=== PATIENT | male | born 1955 | race Caucasian/White ===

== ENCOUNTER → 2017-04-24 | Outpatient (CLI) | payer OTHER ==
[2017-04-24 11:24] LABS: CH 31.4; CHCM 34.3; HCT 50.3 % (39.0-53.0); HDW 2.88; HGB 16.4 gm/dL (13.0-17.5); MCHC 32.7 g/dL (31.0-37.0); MCV 91.9 fL (80.0-100.0); Mean Platelet Volume 10.5; RBC 5.48 m/uL (4.30-5.90); RDW 14.5 % (11.5-15.5); WBC 10.1 k/uL (3.8-10.6)
[2017-04-24 12:29] LABS: ALT 50 U/L (21-72); AST 40 U/L (17-59); Alkaline Phosphatase 107 U/L (38-126); Anion Gap 18 mmol/L; Blood Urea Nitrogen 16 mg/dL (9-20); Calcium 9.8 mg/dL (8.4-10.2); Carbon Dioxide 18 mmol/L (22-30); Chloride 107 mmol/L (98-107); Glucose 154 mg/dL (74-99); Non-African American GFR(MDRD) >60 (>60 ml/min/1.73 sqM); Potassium 4.2 mmol/L (3.5-5.1); Sodium 143 mmol/L (137-145); Total Bilirubin 0.4 mg/dL (0.2-1.3); Total Protein 7.7 g/dL (6.3-8.2)
[2017-04-24 12:56] LABS: Prostate Specific Antigen 0.83 ng/mL (0.00-4.00)
== END | disposition home or self-care (01) ==
LOC: LABWHC1 11:04
PROVIDERS: ATTEND Physician Assistant
DX: N40.0 Benign prostatic hyperplasia without lower urinary tract symptoms (principal); E78.2 Mixed hyperlipidemia; I10 Essential (primary) hypertension
CPT/HCPCS: 36415; 80053; 84153; 85027

== ENCOUNTER → 2024-01-01 | Outpatient (CLI) | payer MEDICARE, OTHER ==
[2024-01-01 13:08] VITALS: BP 129/61; PULSE 87; RESP 18
--- NOTE | 2024-01-01 13:30 | P.PAINCN ---
History of Present Illness - Reason for Consult Consult date: 01/01/24 lumbar back pain - Chief Complaint lumbar back pain - History of Present Illness Mr. Prince is a 68 year old pleasant male patient came to [facility] pain management clinic for initial evaluation for lumbar back pain. Patient described pain started many years ago has ongoing lumbar back problem. He was recently hospitalized secondary to rhabdomyolysis, all to that he was kept on home oxygen 5 L/m nasal cannula. Patient described pain as aching, sharp, throbbing, spasm type of pain. Patient rated pain 9out of 10 in severity. Which may very her pain level from 5-10 out of 10 in severity. Pain increases with activities, and standing, walking, sitting, bending forward, and lifting. Pain decreases with resting and medication Overall patient activities decreased secondary to pain. Pain medications helping to some extent. Because of the pain patient is feeling lack of sleep and interest and energy. Denied any bowel or bladder problems. Patient denies any adverse effects to medications.he is using walker as a walking aids for walking. Complaining depression secondary to pain but denied any suicidal/homicidal tendency at this time. There are no signs of narcotic diversion/misuse/overuse and no new-onset weakness, bowel/bladder incontinence, saddle anesthesia, or no red flag symptoms. his lumbar epidural, and lumbar trigger point injection procedure was canceled on the day of procedure due to his positioning issues, and pain. Conservative treatment tried: [id number] medications [id number] lidocaine patch Ice, and heat Physical therapy exercises-done long time ago TENS unit's- never tried Chiropractic therapy- number tried Review of Systems 12 point review of symptoms negative except as mentioned in the history of present illness. Past Medical History Past Medical History: COPD, Diabetes Mellitus, Hyperlipidemia, Hypertension History of Any Multi-Drug Resistant Organisms: None Reported Past Surgical History: No Surgical Hx Reported Past Psychological History: No Psychological Hx Reported Smoking Status: Former smoker Past Alcohol Use History: Occasional Past Drug Use History: None Reported Medications and Allergies Home Medications Medication Instructions Recorded Confirmed Type Lidocaine 5% Patch [Lidoderm 5% 1 patch TOPICAL DAILY PRN #30 patch 12/08/23 01/01/24 Rx Patch] Glimepiride 2 mg PO BID 12/09/23 01/01/24 History Rosuvastatin Calcium 40 mg PO DAILY 12/09/23 01/01/24 History Albuterol Inhaler [Ventolin Hfa 2 puff INHALATION Q6H PRN #1 each 12/17/23 01/01/24 Rx Inhaler] Budesonide-Formot 160-4.5 Mcg 2 puff INHALATION BID #10.2 gm 12/17/23 01/01/24 Rx [Symbicort 160-4.5 Mcg Inhaler] Furosemide [Lasix] 40 mg PO DAILY #30 tablet 12/17/23 01/01/24 Rx Ibuprofen [Motrin] 400 mg PO Q6HR PRN tab 12/17/23 01/01/24 Rx Ipratropium-Albuterol Nebulize 3 ml INHALATION RT-QID #100 each 12/17/23 01/01/24 Rx [Duoneb 0.5 mg-3 mg/3 ml Soln] Ipratropium-Albuterol Nebulize 3 ml INHALATION RT-QID PRN each 12/17/23 01/01/24 Rx [Duoneb 0.5 mg-3 mg/3 ml Soln] metFORMIN HCL 1,000 mg PO BID #60 tablet 12/17/23 01/01/24 Rx predniSONE 10 mg PO DIRECTED #30 tab 12/17/23 01/01/24 Rx Allergies Allergy/AdvReac Type Severity Reaction Status Date / Time No Known Allergies Allergy Verified 01/01/24 12:59 Physical Exam General: Well-developed, well-nourished, no acute distress HEENT: Normocephalic, and atraumatic Neck: Supple, no neck swelling Psychiatric: Appropriate mood, and affect [employer]ACH[employer] P[employer]ER: No focal neurological deficits Musculoskeletal: Upper extremity: Normal strength, and range of motion. Sensation grossly intact Lower extremity: Normal strength, and decreased range of motion secondary to pain Lumbar spine: Paravertebral tenderness: positive, multiple lumbar trigger point positive Lumbar facet load test : positive Sacroiliac joint tenderness: Positive strait leg raising test patient refused Results Comments: CT of the lumbar spine done on 12/08/2023 showed L3-L4 broad-based disc protrusion, facet arthropathy with effacement of the thecal sac. L4-L5 broad-based disc protrusion, moderate facet arthropathy with ligamentum flavum hypertrophy with effacement of anterior, and posterior lateral thecal sac. L5-S1 degenerative disc disease with vacuum disc phenomenon with facet arthropathy, and a left paracentral disc protrusion encroaching the left S1 nerve root. No compression fracture deformity. No spondylolisthesis. Multilevel osteophytic spurring. Assessment and Plan Assessment: #1 Diagnoses, prognosis, and multiple treatment options including but not limited to physical therapy, interventional therapy, adjunct medication therapy, narcotic medication, and surgical options were discussed with the patient. And all questions were answered to the patient's satisfaction. #2 treatment plan agreement : Patient was thoroughly discussed regarding the treatment options, alternatives, and importance of exercises as tolerated. Patient clearly understood. #3 Patient was counseled on importance of regular exercise. Including presley chi, aerobic exercises as tolerated. Which helps for chronic pain, and overall well- being. #4 investigations: MAPS- reviewed , urine drug test- not done #5 diagnostic tests:none #6 consultation :physical therapy- # 7 interventional procedures: lumbar L4-L5 epidural steroid injection, and lumbar bilateral trigger point injections. Procedure, complications, alternatives discussed with the patient.but patient refused at this time. #8 medications none from the pain clinic #9 morphine milligrams equivalents dose ( MME) per day:0 from the pain clinic # 10 TENS unit's, and percussion massage device #11 disposition: scheduled to follow up with pain clinic in 8 weeks duration or as needed. Plan: #1 Diagnoses, prognosis, and multiple treatment options including but not limited to physical therapy, interventional therapy, adjunct medication therapy, narcotic medication, and surgical options were discussed with the patient. And all questions were answered to the patient's satisfaction. #2 treatment plan agreement : Patient was thoroughly discussed regarding the treatment options, alternatives, and importance of exercises as tolerated. Patient clearly understood. #3 Patient was counseled on importance of regular exercise. Including presley chi, aerobic exercises as tolerated. Which helps for chronic pain, and overall well- being. #4 investigations: MAPS- reviewed , urine drug test- not done #5 diagnostic tests: not done #6 consultation : physical therapy # 7 interventional procedures: a lumbar L4-L5 epidural steroid injection, and lumbar bilateral trigger point injections. Procedure, complications, alternatives discussed with the patient. #8 medications none from the pain clinic #9 morphine milligrams equivalents dose ( MME) per day:0 # 10 TENS unit's, and percussion massage device #11 disposition: scheduled to follow up with pain clinic in 8-12 weeks duration. Time with Patient: Less than 30 PQRS Measure Charge Sheet Measure #130: Documentation of Current Meds in Medical Chart: Patient's medications documented in chart Measure #226: Tobacco Use: Screen & Cessation Intervention: Pt not a tobacco user Measure #111: Pneumonia Vaccination: Pneumococcal vaccine administered or previously received Measure #47: Advance Care Plan: Advance care planning discussed & documented, plan or surrogate given Measure #412: Opioid Treatment Agreement: No documentation of signed opioid treatment agreement Measure #408: Opioid Therapy Follow-up Evaluation: Patient had NO f/u eval minimum every 3 months during opioid therapy Measure #317: Preventitive Care & Scrn High Bld Press & F/U: Pre-hypertensive or hypertensive BP documented, pt will f/u with PCP Measure #128: Body Mass Index (BMI) Screening & Follow-up: BMI documented within normal parameters Measure #131: Pain Assessment & Follow-up: Pain positive & plan documented Measure #431: Unhealthy Alcohol Use Preventative Care & Scrn: Patient not identified as an unhealthy alcohol user - Pain Location Bilateral Lower Back Non-Pharmacological Interventions: Chiropractic Treatment, Physical Therapy Pharmacological Interventions: PRN Medication, Topical Medication Home Medications: Ambulatory Orders Lidocaine 5% Patch [Lidoderm 5% Patch] 1 patch TOPICAL DAILY PRN #30 patch 12/08/23 Glimepiride 2 mg PO BID 12/09/23 Rosuvastatin Calcium 40 mg PO DAILY 12/09/23 Albuterol Inhaler [Ventolin Hfa Inhaler] 2 puff INHALATION Q6H PRN #1 each 12/17/23 Budesonide-Formot 160-4.5 Mcg [Symbicort 160-4.5 Mcg Inhaler] 2 puff INHALATION BID #10.2 gm 12/17/23 Furosemide [Lasix] 40 mg PO DAILY #30 tablet 12/17/23 Ibuprofen [Motrin] 400 mg PO Q6HR PRN tab 12/17/23 Ipratropium-Albuterol Nebulize [Duoneb 0.5 mg-3 mg/3 ml Soln] 3 ml INHALATION RT-QID #100 each 12/17/23 Ipratropium-Albuterol Nebulize [Duoneb 0.5 mg-3 mg/3 ml Soln] 3 ml INHALATION RT-QID PRN each 12/17/23 metFORMIN HCL 1,000 mg PO BID #60 tablet 12/17/23 predniSONE 10 mg PO DIRECTED #30 tab 12/17/23
== END ==
LOC: PNWHC3 12:27
DX: M54.50 Low back pain, unspecified (principal); G89.29 Other chronic pain; F32.A Depression, unspecified; Z71.82 Exercise counseling; Z87.891 Personal history of nicotine dependence; Z79.899 Other long term (current) drug therapy
CPT/HCPCS: 99211

== ENCOUNTER 2024-01-16 13:50 | Inpatient (IN) | payer MEDICARE, OTHER ==
[2024-01-16] MEDS ORDERED: VANCOMYCIN IV PER PHARMACY 1 EACH MISC MISCELLANE PRN (14:44)
[2024-01-16] MEDS: SODIUM CHLORIDE 0.9% 1,000 ML IV STA (15:05)
[2024-01-16] MEDS: KETOROLAC 15 MG/ML 1 ML VIAL IVP STA (15:06)
[2024-01-16 15:13] LABS: Anisocytosis Slight; Basophils % (A) 1 %; Eosinophils # (A) 0.1 k/uL (0-0.7); Eosinophils % (A) 1 %; HCT 47.3 % (39.0-53.0); Hypochromasia Slight; Lymphocytes % (A) 24 %; MCH 28.5 pg (25.0-35.0); MCHC 31.8 g/dL (31.0-37.0); MCV 89.7 fL (80.0-100.0); Monocytes # (A) 0.6 k/uL (0-1.0); Monocytes % (A) 7 %; Neutrophils # (A) 5.4 k/uL (1.3-7.7); Neutrophils % (A) 66 %; Platelet Count 150 k/uL (150-450); Poikilocytosis Slight; RBC 5.28 m/uL (4.30-5.90); RDW 16.7 % (11.5-15.5); WBC 8.2 k/uL (3.8-10.6)
[2024-01-16 15:22] LABS: ALT 18 U/L (4-49); AST 27 U/L (17-59); African American GFR (CKD) >90 (>60 ml/min/1.73 sqM); Albumin 3.8 g/dL (3.5-5.0); Alkaline Phosphatase 99 U/L (38-126); Amylase 50 U/L (30-110); Anion Gap 7 mmol/L; Blood Urea Nitrogen 11 mg/dL (9-20); Calcium 8.9 mg/dL (8.4-10.2); Carbon Dioxide 32 mmol/L (22-30); Chloride 104 mmol/L (98-107); Glucose 129 mg/dL (74-99); Lipase 69 U/L (23-300); Non-African American GFR(CKD) 88 (>60 ml/min/1.73 sqM); Sodium 143 mmol/L (137-145); Total Protein 6.7 g/dL (6.3-8.2)
[2024-01-16 15:33] LABS: Partial Thromboplastin Time 24.7 sec (22.0-30.0); Prothrombin Time 10.8 sec (10.0-12.5)
--- NOTE | 2024-01-16 15:34 | XR ---
EXAMINATION TYPE: XR foot limited LT DATE OF EXAM: 01/16/2024 CLINICAL HISTORY: pain TECHNIQUE: Frontal, lateral images of the left foot are obtained. COMPARISON: None. FINDINGS: There is no acute fracture/dislocation evident. The joint spaces appear within normal lucas its. Dorsal soft tissue swelling. No radiographic evidence to suggest osteomyelitis at this time. Lar ge plantar calcaneal spur and calcification of the Achilles. IMPRESSION: There is no acute fracture or dislocation. ICD 10 NO FRACTURE, INITIAL EVALUATION
[2024-01-16] MEDS ORDERED: NALOXONE 0.4 MG/ML 1 ML VIAL IV PRN (15:57)
[2024-01-16] MEDS ORDERED: ACETAMINOPHEN TAB 325 MG TAB PO PRN (15:57)
--- NOTE | 2024-01-16 16:00 | ED ---
General Adult HPI - General Chief complaint: Wound/Laceration Stated complaint: L foot pain Time Seen by Provider: 01/16/24 14:33 Source: patient, RN notes reviewed, old records reviewed Mode of arrival: wheelchair Limitations: no limitations - History of Present Illness Initial comments: Patient is a 68-year-old male who presents emergency department complaining of left foot wound as well as swelling and erythema. Was started on antibiotics few days ago, Keflex for cellulitis and possible wound infection. States the swelling and edema of gotten worse which is why presents for further evaluation. Denies fevers or chills. Is chronically on 3 to 5 L nasal cannula of oxygen however states he did not travel with it and was sitting in the waiting room for prolonged period of time without it. Was found to be 75% oxygen as well as a si ngle blood pressure that was low but others that were normal. Was placed in trauma bay 2 for further evaluation. Currently has no other acute complaints at this time other than pain left foot. Presents for evaluation. Does have a stage I decubitus ulcer. Denies chest pain, cough, fevers, chills, nausea, vomiting, diarrhea. Presents for further evaluation at this time. Believes he is having failed outpatient management of cellulitis. - Related Data Home Medications Medication Instructions Recorded Confirmed Glimepiride 2 mg PO BID 12/09/23 01/16/24 Rosuvastatin Calcium 40 mg PO DAILY 12/09/23 01/16/24 Albuterol Inhaler [Ventolin Hfa 2 puff INHALATION RT-Q6H PRN 01/16/24 01/16/24 Inhaler] Budesonide-Formot 160-4.5 Mcg 2 puff INHALATION RT-BID 01/16/24 01/16/24 [Symbicort 160-4.5 Mcg Inhaler] Cephalexin [Keflex] 500 mg PO QID 01/16/24 01/16/24 Ibuprofen [Motrin] 800 mg PO Q12H PRN 01/16/24 01/16/24 Multivitamins, Thera [Multivitamin 1 tab PO DAILY 01/16/24 01/16/24 (formulary)] Previous Rx's Medication Instructions Recorded Lidocaine 5% Patch [Lidoderm 5% 1 patch TOPICAL DAILY PRN #30 patch 12/08/23 Patch] Furosemide [Lasix] 40 mg PO DAILY #30 tablet 12/17/23 Ipratropium-Albuterol Nebulize 3 ml INHALATION RT-QID #100 each 12/17/23 [Duoneb 0.5 mg-3 mg/3 ml Soln] Allergies Allergy/AdvReac Type Severity Reaction Status Date / Time No Known Allergies Allergy Verified 01/16/24 16:19 Review of Systems ROS Statement: Those systems with pertinent positive or pertinent negative responses have been documented in the HPI. Review of Systems: CONST: Denies fever EYES: Denies blurry vision ENT: Denies nasal congestion C/V: Denies Chest pain RESP: Denies shortness of breath GI: Denies abdominal pain : Denies dysuria SKIN: Endorses left foot edema, erythema, wounds MSK: Denies joint pain. NEURO: Denies headache ROS Other: All systems not noted in ROS Statement are negative. Past Medical History Past Medical History: COPD, Diabetes Mellitus, Hyperlipidemia, Hypertension History of Any Multi-Drug Resistant Organisms: None Reported Past Surgical History: No Surgical Hx Reported Additional Past Surgical History / Comment(s): Orthopedic arm surgery Past Psychological History: No Psychological Hx Reported Smoking Status: Former smoker Past Alcohol Use History: Occasional Past Drug Use History: None Reported General Exam - General Exam Comments Initial Comments: General: Appears in no acute distress. HEAD: Normal with no signs of head trauma. EYES: PERRLA, EOMI, conjunctiva normal, no discharge. ENT: Hearing grossly intact, normal oropharynx. RESPIRATORY: Clear breath sounds bilaterally. No wheezes, rales, or rhonchi. Saturating normally on 4 L nasal cannula oxygen. No significant increased work of breathing. C/V: Regular rate and rhythm. S1 and S2 auscultated, no edema, peripheral pulses 2+ and intact throughout ABD: Abd is soft, nontender, nondistended EXT: Normal range of motion, no obvious deformity SKIN: Stage I decubitus ulcer over the sacrum. Patient has 3 wounds over the left foot with no purulent discharge or drainage. No obvious fluctuance. Erythematous and as well as edema over the entire foot. Appears to be cellulitic. NEURO: Alert and oriented x 4. No focal deficits. Limitations: no limitations Course Vital Signs 01/16/24 01/16/24 01/16/24 14:01 14:44 16:13 Temperature 97.6 F Pulse Rate 78 77 77 Respiratory 24 20 18 Rate Blood Pressure 80/38 116/70 128/74 O2 Sat by Pulse 92 L 94 L 95 Oximetry 01/16/24 01/16/24 01/16/24 18:00 20:09 20:18 Temperature Pulse Rate 74 75 76 Respiratory 22 Rate Blood Pressure 115/65 O2 Sat by Pulse 93 L Oximetry Medical Decision Making - Medical Decision Making Was pt. sent in by a medical professional or institution ([facility]mers, COIN MACHINE [employer]SEMBLER, urgent care, hospital, or fdc...) When possible be specific @ -No Did you speak to anyone other than the patient for history (EMS, parent, family, police, friend...)? What history was obtained from this source @ -No Did you review nursing and triage notes (agree or disagree)? Why? @ -I reviewed and agree with nursing and triage notes Were old charts reviewed (outside hosp., previous admission, EMS record, old EKG, old radiological studies, urgent care reports/EKG's, fdc records)? Report findings @ -No old charts were reviewed Differential Diagnosis (chest pain, altered mental status, abdominal pain women, abdominal pain men, vaginal bleeding, weakness, fever, dyspnea, syncope, headache, dizziness, GI bleed, back pain, seizure, CVA, palpatations, mental health, musculoskeletal)? @ -Cellulitis, osteomyelitis, sepsis, this list is not all inclusive. EKG interpreted by me (3pts min.). @ -As above X-rays interpreted by me (1pt min.). @ -X-ray of the foot reveals no evidence of osteomyelitis CT interpreted by me (1pt min.). @ -None done U/S interpreted by me (1pt. min.). @ -None done What testing was considered but not performed or refused? (CT, X-rays, U/S, labs)? Why? @ -None What meds were considered but not given or refused? Why? @ -None Did you discuss the management of the patient with other professionals (professionals i.e. [facility] Summers, COIN MACHINE ASSEMBLER, lab, RT, psych nurse, social media marketing analyst, straddle bug, teacher, civil preparedness officer, community case manager)? Give summary @ -No Was smoking cessation discussed for >3mins.? @ -No Was critical care preformed (if so, how long)? @ -No Were there social determinants of health that impacted care today? How? (Homelessness, low income, unemployed, alcoholism, drug addiction, transportation, low edu. Level, literacy, decrease access to med. care, long-term, rehab)? @ -No Was there de-escalation of care discussed even if they declined (Discuss DNR or withdrawal of care, Hospice)? DNR status @ -No What co-morbidities impacted this encounter? (DM, HTN, Smoking, COPD, CAD, Cancer, CVA, ARF, Chemo, Hep., AIDS, mental health diagnosis, sleep apnea, morbid obesity)? @ -None Was patient admitted / discharged? Hospital course, mention meds given and route , prescriptions, significant lab abnormalities, going to OR and other pertinent info. @ -Patient presents with concern for failed outpatient management of left foot cellulitis. Patient was found to be hypoxic initially but is supposed to be on 3 to 5 L nasal cannula was on nothing sitting in the waiting room for prolonged period of time. He was immediately placed on oxygen and placed in trauma bay 1. Currently no respiratory distress. Vital signs are within acceptable limits. We will obtain infectious labs, and start the patient on IV vancomycin after obtaining blood and wound cultures. Patient was in agreement this plan. Patient given a small amount of IV fluids as well as Toradol for pain. X-ray unremarkable. EKG unremarkable. Labs remarkable for a lactic acidosis of 4.9 which I strongly suspect is likely secondary to patient waiting in the waiting room saturating the 70%'s as he was off of his normal oxygen for prolonged period time. I do not believe this is secondary to sepsis at this time, however patient was already started on IV fluids and antibiotics. Will continue to trend. I did the patient. Due to failed outpatient management of cellulitis as well as lactic acidosis we will admit to the hospital. Home meds restarted. Already on vancomycin. Patient in agreement this plan. Infectious disease consulted. I spoke with the admitting provider, Dr. Douglass who was in agreement with the plan and accepted the admission. Undiagnosed new problem with uncertain prognosis? @ -No Drug Therapy requiring intensive monitoring for toxicity (Heparin, Nitro, Insuli n, Cardizem)? @ -No Were any procedures done? @ -No Diagnosis/symptom? @ -Left foot cellulitis, chronic left foot wounds Acute, or Chronic, or Acute on Chronic? @ -Acute on chronic Uncomplicated (without systemic symptoms) or Complicated (systemic symptoms)? @ -Complicated Side effects of treatment? @ -No Exacerbation, Progression, or Severe Exacerbation? @ -No Poses a threat to life or bodily function? How? (Chest pain, [place], ND, pneumonia, PE, COPD, DKA, ARF, appy, cholecystitis, CVA, Diverticulitis, Homicidal, Suicidal, threat to staff... and all critical care pts) @ -Yes Diagnosis/symptom? @ -Lactic acidosis likely secondary to chronic hypoxic respiratory failure Acute, or Chronic, or Acute on Chronic? @ -Acute Uncomplicated (without systemic symptoms) or Complicated (systemic symptoms)? @ -Uncomplicated Side effects of treatment? @ -None Exacerbation, Progression, or Severe Exacerbation] @ -No Poses a threat to life or bodily function? @ -Yes, if patient is off of his oxygen which he was while he was in the waiting room. - Lab Data Result diagrams: 01/16/24 14:58 01/16/24 14:58 Lab Results 01/16/24 01/16/24 01/16/24 Range/Units 14:58 14:58 14:58 WBC 8.2 (3.8-10.6) k/uL RBC 5.28 (4.30-5.90) m/uL Hgb 15.0 (13.0-17.5) gm/dL Hct 47.3 (39.0-53.0) % MCV 89.7 (80.0-100.0) fL MCH 28.5 (25.0-35.0) pg MCHC 31.8 (31.0-37.0) g/dL RDW 16.7 H (11.5-15.5) % Plt Count 150 (150-450) k/uL MPV 10.0 Neutrophils % 66 % Lymphocytes % 24 % Monocytes % 7 % Eosinophils % 1 % Basophils % 1 % Neutrophils # 5.4 (1.3-7.7) k/uL Lymphocytes # 2.0 (1.0-4.8) k/uL Monocytes # 0.6 (0-1.0) k/uL Eosinophils # 0.1 (0-0.7) k/uL Basophils # 0.0 (0-0.2) k/uL Hypochromasia Slight Poikilocytosis Slight Anisocytosis Slight PT 10.8 (10.0-12.5) sec INR 1.0 (<1.2) APTT 24.7 (22.0-30.0) sec Sodium 143 (137-145) mmol/L Potassium 5.0 (3.5-5.1) mmol/L Chloride 104 (98-107) mmol/L Carbon Dioxide 32 H (22-30) mmol/L Anion Gap 7 mmol/L BUN 11 (9-20) mg/dL Creatinine 0.87 (0.66-1.25) mg/dL Est GFR (CKD-EPI)AfAm >90 (>60 ml/min/1.73 sqM) Est GFR (CKD-EPI)NonAf 88 (>60 ml/min/1.73 sqM) Glucose 129 H (74-99) mg/dL Lactic Ac Sepsis Rflx Plasma Lactic Acid Vitaliy (0.7-2.0) mmol/L Calcium 8.9 (8.4-10.2) mg/dL Total Bilirubin 1.0 (0.2-1.3) mg/dL AST 27 (17-59) U/L ALT 18 (4-49) U/L Alkaline Phosphatase 99 (38-126) U/L Total Protein 6.7 (6.3-8.2) g/dL Albumin 3.8 (3.5-5.0) g/dL Amylase 50 (30-110) U/L Lipase 69 (23-300) U/L 01/16/24 01/16/24 Range/Units 14:58 15:31 WBC (3.8-10.6) k/uL RBC (4.30-5.90) m/uL Hgb (13.0-17.5) gm/dL Hct (39.0-53.0) % MCV (80.0-100.0) fL MCH (25.0-35.0) pg MCHC (31.0-37.0) g/dL RDW (11.5-15.5) % Plt Count (150-450) k/uL MPV Neutrophils % % Lymphocytes % % Monocytes % % Eosinophils % % Basophils % % Neutrophils # (1.3-7.7) k/uL Lymphocytes # (1.0-4.8) k/uL Monocytes # (0-1.0) k/uL Eosinophils # (0-0.7) k/uL Basophils # (0-0.2) k/uL Hypochromasia Poikilocytosis Anisocytosis PT (10.0-12.5) sec INR (<1.2) APTT (22.0-30.0) sec Sodium (137-145) mmol/L Potassium (3.5-5.1) mmol/L Chloride (98-107) mmol/L Carbon Dioxide (22-30) mmol/L Anion Gap mmol/L BUN (9-20) mg/dL Creatinine (0.66-1.25) mg/dL Est GFR (CKD-EPI)AfAm (>60 ml/min/1.73 sqM) Est GFR (CKD-EPI)NonAf (>60 ml/min/1.73 sqM) Glucose (74-99) mg/dL Lactic Ac Sepsis Rflx Y Plasma Lactic Acid Vitaliy 4.9 H* (0.7-2.0) mmol/L Calcium (8.4-10.2) mg/dL Total Bilirubin (0.2-1.3) mg/dL AST (17-59) U/L ALT (4-49) U/L Alkaline Phosphatase (38-126) U/L Total Protein (6.3-8.2) g/dL Albumin (3.5-5.0) g/dL Amylase (30-110) U/L Lipase (23-300) U/L - EKG Data -: EKG Interpreted by Me EKG Comments: 12-lead Electrocardiogram Interpretation Note EKG was reviewed and interpreted by myself. 12-lead ECG performed at 1424 is interpreted by me as revealing normal sinus rhythm at a rate of 73 beats per minute. Jones is normal. [place] interval is 140 ms, QRS duration is 96 ms, QTc is 446 ms.. There were no ST or T wave abnormalities to suggest myocardial ischemia or injury. R wave progression across the precordium was satisfactory. By my interpretation this EKG is non-diagnostic for acute ischemia. Disposition Clinical Impression: Left foot infection, Lactic acidosis, Cellulitis Disposition: ADMITTED IP TO THIS HOSP Condition: Stable Time of Disposition: 15:55
[2024-01-16] MEDS: VANCOMYCIN 1,750 MG in SODIUM CHLORIDE 0.9% 500 ML 500 ML IVPB ONE (16:12)
[2024-01-16] MEDS: SODIUM CHLORIDE 0.9% 1,000 ML IV SCH (16:13)
[2024-01-16] MEDS: HEPARIN SODIUM,PORCINE 5,000 UNIT/ML 1 ML VIAL SQ SCH ×2 (18:35→19:13)
[2024-01-16] MEDS ORDERED: NON FORMULARY DRUG (Albuterol Inhaler 90 MCG Puff) INHALATION PRN (18:40)
[2024-01-16] MEDS ORDERED: LIDOCAINE 4% PATCH TOPICAL PRN (18:40)
[2024-01-16] MEDS ORDERED: IBUPROFEN 800 MG TAB PO PRN (18:40)
[2024-01-16 19:33] LABS: Appearance,Urine Clear (Clear); Bilirubin,Urine Negative (Negative); Blood,Urine Negative (Negative); Color,Urine Colorless; Glucose,Urine (UA) Negative (Negative); Ketones,Urine Negative (Negative); Leukocyte Esterase,Urine Negative (Negative); Nitrite,Urine Negative (Negative); PH, Urine 5.5 (5.0-8.0); Protein,Urine Negative (Negative); Specific Gravity,Urine 1.007 (1.001-1.035); Urobilinogen,Urine <2.0 mg/dL (<2.0)
[2024-01-16] MEDS: IPRATROPIUM-ALBUTEROL 3 ML NEB INHALATION SCH (20:08)
[2024-01-16] MEDS: SYMBICORT 160-4.5 MCG INHALER INHALATION SCH (20:09)
[2024-01-16] MEDS: GLIMEPIRIDE 2 MG TAB PO SCH (22:59)
[2024-01-16] MEDS: FAMOTIDINE 20 MG/2 ML VIAL IV SCH (22:59)
[2024-01-17] MEDS: VANCOMYCIN 1,500 MG in SODIUM CHLORIDE 0.9% 500 ML 500 ML IVPB SCH (06:04)
--- NOTE | 2024-01-17 07:14 | P.CONS ---
History of Present Illness - Reason for Consult Consult date: 01/16/24 Foot wound Requesting physician: Murray Bertrand - Chief Complaint Pain redness and wound to the left foot x days - History of Present Illness Patient is a 68-year-old male with a past medical history significant for COPD diabetes mellitus hypertension hyperlipidemia recent admission to the hospital about a month ago with multiple falls prolonged stay on the floor with rhabdomyolysis subsequently stabilized and discharged home patient now presenting back to the hospital concerning for left foot wound as well as swelling and erythema patient mention he noticed those wounds to the left foot however his discharge from the hospital apparently has been treated by his primary care physician with Keflex however the patient noticed to having increasing swelling redness and edema to the left foot area patient complaining of pain describing it to be sharp moderate intensity without any radiation patient denies high-grade fever or any chills patient on presentation to the hospital was afebrile and no fever have been recorded subsequently patient was not tachycardic or hypotensive mildly hypoxic currently on supplemental oxygen patient did have white count of 8.2 creatinine 0.87 lactic acid 4.9 liver enzymes normal patient did have x-ray of the foot no acute fracture or dislocation patient was started on vancomycin admitted to the hospital infectious disease was consulted for further management Review of Systems Positive point and negatives has been mentioned in the HPI, complete review of systems was performed and all other systems are negative Past Medical History Past Medical History: COPD, Diabetes Mellitus, Hyperlipidemia, Hypertension History of Any Multi-Drug Resistant Organisms: None Reported Past Surgical History: No Surgical Hx Reported Additional Past Surgical History / Comment(s): Orthopedic arm surgery Past Psychological History: No Psychological Hx Reported Smoking Status: Former smoker Past Alcohol Use History: Occasional Past Drug Use History: None Reported Medications and Allergies Home Medications Medication Instructions Recorded Confirmed Type Lidocaine 5% Patch [Lidoderm 5% 1 patch TOPICAL DAILY PRN #30 patch 12/08/23 Rx Patch] Glimepiride 2 mg PO BID 12/09/23 01/16/24 History Rosuvastatin Calcium 40 mg PO DAILY 12/09/23 01/16/24 History Furosemide [Lasix] 40 mg PO DAILY #30 tablet 12/17/23 01/16/24 Rx Ipratropium-Albuterol Nebulize 3 ml INHALATION RT-QID #100 each 12/17/23 01/16/24 Rx [Duoneb 0.5 mg-3 mg/3 ml Soln] Albuterol Inhaler [Ventolin Hfa 2 puff INHALATION RT-Q6H PRN 01/16/24 01/16/24 History Inhaler] Budesonide-Formot 160-4.5 Mcg 2 puff INHALATION RT-BID 01/16/24 01/16/24 History [Symbicort 160-4.5 Mcg Inhaler] Ibuprofen [Motrin] 800 mg PO Q12H PRN 01/16/24 01/16/24 History Multivitamins, Thera [Multivitamin 1 tab PO DAILY 01/16/24 01/16/24 History (formulary)] Acetaminophen Tab [Tylenol] 650 mg PO Q6HR PRN tab 01/20/24 Rx Ciprofloxacin HCl [Cipro] 500 mg PO BID 10 Days #20 tab 01/20/24 Rx Allergies Allergy/AdvReac Type Severity Reaction Status Date / Time No Known Allergies Allergy Verified 01/16/24 16:19 Physical Exam Vitals: Vital Signs Temp Pulse Resp BP Pulse Ox 01/16/24 16:13 77 18 128/74 95 01/16/24 14:44 77 20 116/70 94 L 01/16/24 14:01 97.6 F 78 24 80/38 92 L Intake and Output 01/16/24 01/16/24 01/16/24 06:59 14:59 22:59 Other: Weight 92.533 kg GENERAL DESCRIPTION: Elderly male lying in bed, no distress. No tachypnea or accessory muscle of respiration use. HEENT: Shows Pallor , no scleral icterus. Oral mucous membrane is dry. No pharyngeal erythema or thrush NECK: Trachea central, no thyromegaly. LUNGS: Unlabored breathing. Clear to auscultation anteriorly. No wheeze or crackle. HEART: S1, S2, regular rate and rhythm. No loud murmur ABDOMEN: Soft, no tenderness , guarding or rigidity, no organomegaly EXTREMITIES: Left foot lateral border did have a 3 wounds with necrotic bases minimal surrounding redness SKIN: No rash, no masses palpable. NEUROLOGICAL: The patient is awake, alert, oriented x3, mood and affect normal. Results CBC & Chem 7: 01/19/24 04:59 01/19/24 04:59 Labs: Abnormal Lab Results - Last 24 Hours (Table) 01/16/24 01/16/24 01/16/24 Range/Units 14:58 14:58 14:58 RDW 16.7 H (11.5-15.5) % Carbon Dioxide 32 H (22-30) mmol/L Glucose 129 H (74-99) mg/dL Plasma Lactic Acid Vitaliy 4.9 H* (0.7-2.0) mmol/L Assessment and Plan (1) Cellulitis of left foot Status: Acute Code(s): L03.116 - CELLULITIS OF LEFT LOWER LIMB SNOMED Code(s): 79141817445975347 Plan: 1patient presented to hospital with a left foot wound x 3 mostly on the lateral border and this patient was recently did have admission to the hospital after a fall and did have evidence of rhabdomyolysis now with the wounds questionably pressure related versus ischemic as the patient did have a cold feet with a component of cellulitis failing outpatient oral Keflex therapy 2-patient will benefit from arterial Doppler and if abnormal vascular surgery evaluation 3-vancomycin pharmacy to dose target trough of 15 while watching kidney function and Vanco trough closely for the complaint of cellulitis while watching his kidney function closely We will follow on clinical condition and cultures to further adjust medication if needed Thank you for this consultation we will follow the patient along with you Dictation was produced using [employer] dictation software. please excuse any grammatical, word or spelling errors. Time with Patient: Greater than 30
[2024-01-17] MEDS: FUROSEMIDE 40 MG TAB PO SCH (09:02)
[2024-01-17] MEDS: ATORVASTATIN 80 MG TAB PO SCH (09:02)
--- NOTE | 2024-01-17 09:34 | P.HPIM ---
History of Present Illness Patient is a pleasant 68 years old male with past medical history of diabetes mellitus hypertension, hyperlipidemia, COPD with chronic hypoxic respiratory failure, patient states he uses 3 to 5 L/min at baseline at home. His wood router hand is Dr. Carroll. at bedside. As per patient and family patient has been having this problem in his left foot for about 1 to 2 months which started like a blood blister and popped up later on after he saw his primary doctor. Patient with no significant improvement and the last few days got more worse so he decided come to emergency room. He was prescribed some antibiotics by his doctor as an outside care however with no improvement Patient denies any other symptoms no chest pain or dyspnea no change in urine or bowel habits. He denies smoking he states he quit 3 years ago, he drinks alcohol occasionally about twice per week No illicit drugs. Patient is afebrile, blood pressure on the low side when he came in 86/38 and currently improved to 116/70 Lactic acid elevated 4.9 came back down to 1.6 Foot x-ray showing no fracture, no evidence of osteomyelitis Urine analysis is negative for infection EKG shows sinus rhythm at [address]-T changes. Rest of labs reviewed and they are unremarkable Patient was started on normal saline 75 mL/h on IV vancomycin admitted with ID team consult Review of Systems Review of systems CONSTITUTIONAL: No fever, no malaise, no fatigue. HEENT: No recent visual problems or hearing problems. Denied any sore throat. CARDIOVASCULAR: No orthopnea, PND, no palpitations, no syncope. PULMONARY: No shortness of breath, no cough, no hemoptysis. GASTROINTESTINAL: No diarrhea, no nausea, no vomiting, no abdominal pain. Normoactive bowel sounds. NEUROLOGICAL: No headaches, no weakness, no numbness. HEMATOLOGICAL: Denies any bleeding or petechiae. GENITOURINARY: Denies any burning micturition, frequency, or urgency. MUSCULOSKELETAL/RHEUMATOLOGICAL: Denies any joint pain, swelling, or any muscle pain. ENDOCRINE: Denies any polyuria or polydipsia. Past Medical History Past Medical History: COPD, Diabetes Mellitus, Hyperlipidemia, Hypertension History of Any Multi-Drug Resistant Organisms: None Reported Past Surgical History: No Surgical Hx Reported Additional Past Surgical History / Comment(s): Orthopedic arm surgery Past Psychological History: No Psychological Hx Reported Smoking Status: Former smoker Past Alcohol Use History: Occasional Past Drug Use History: None Reported Medications and Allergies Home Medications Medication Instructions Recorded Confirmed Type Lidocaine 5% Patch [Lidoderm 5% 1 patch TOPICAL DAILY PRN #30 patch 12/08/23 01/16/24 Rx Patch] Glimepiride 2 mg PO BID 12/09/23 01/16/24 History Rosuvastatin Calcium 40 mg PO DAILY 12/09/23 01/16/24 History Furosemide [Lasix] 40 mg PO DAILY #30 tablet 12/17/23 01/16/24 Rx Ipratropium-Albuterol Nebulize 3 ml INHALATION RT-QID #100 each 12/17/23 01/16/24 Rx [Duoneb 0.5 mg-3 mg/3 ml Soln] Albuterol Inhaler [Ventolin Hfa 2 puff INHALATION RT-Q6H PRN 01/16/24 01/16/24 History Inhaler] Budesonide-Formot 160-4.5 Mcg 2 puff INHALATION RT-BID 01/16/24 01/16/24 History [Symbicort 160-4.5 Mcg Inhaler] Cephalexin [Keflex] 500 mg PO QID 01/16/24 01/16/24 History Ibuprofen [Motrin] 800 mg PO Q12H PRN 01/16/24 01/16/24 History Multivitamins, Thera [Multivitamin 1 tab PO DAILY 01/16/24 01/16/24 History (formulary)] Allergies Allergy/AdvReac Type Severity Reaction Status Date / Time No Known Allergies Allergy Verified 01/16/24 16:19 Physical Exam Vitals: Vital Signs Temp Pulse Resp BP Pulse Ox 01/16/24 14:44 77 20 116/70 94 L 01/16/24 14:01 97.6 F 78 24 80/38 92 L Intake and Output 01/16/24 01/16/24 01/16/24 06:59 14:59 22:59 Other: Weight 92.533 kg GENERAL: The patient is alert and oriented x3, not in any acute distress. Well developed, well nourished. HEENT: Pupils are round and equally reacting to light. EOMI. No scleral icterus. No conjunctival pallor. Normocephalic, atraumatic. No pharyngeal erythema. No thyromegaly. CARDIOVASCULAR: S1 and S2 present. No murmurs, rubs, or gallops. PULMONARY: Chest is clear to auscultation, no wheezing , no crackles. ABDOMEN: Soft, nontender, nondistended, normoactive bowel sounds. No palpable organomegaly. MUSCULOSKELETAL: No joint swelling or deformity. -EXTREMITIES: No cyanosis, clubbing, or pedal edema. Left foot mildly swollen, with circular areas of dry black discoloration on the lateral left forefoot anteriorly and in the middle and there is another spot on the lateral malleolus. No significant surrounding cellulitis NEUROLOGICAL: Gross neurological examination did not reveal any focal deficits. SKIN: No rashes. no petechiae. Results CBC & Chem 7: 01/16/24 14:58 01/16/24 14:58 Labs: Abnormal Lab Results - Last 24 Hours (Table) 01/16/24 01/16/24 01/16/24 Range/Units 14:58 14:58 14:58 RDW 16.7 H (11.5-15.5) % Carbon Dioxide 32 H (22-30) mmol/L Glucose 129 H (74-99) mg/dL Plasma Lactic Acid Vitaliy 4.9 H* (0.7-2.0) mmol/L Assessment and Plan Assessment: Left foot infection and cellulitis with possible deep-seated infection related to his diabetes, failed outpatient treatment Diabetes mellitus type 2 Hypertension Hyperlipidemia COPD without acute exacerbation Chronic hypoxic respiratory failure secondary to above continue with IV van comycin Plan: Continue with IV hydration ID team consult DVT prophylaxis subcutaneous heparin GI prophylaxis Pepcid Physical therapy evaluation Prognosis is guarded
[2024-01-17 09:44] LABS: Basophils # (A) 0.03 X 10*3/uL (0.00-0.10); Basophils % (A) 0.4 %; Eosinophils # (A) 0.03 X 10*3/uL (0.04-0.35); Eosinophils % (A) 0.4 %; HCT 42.9 % (39.6-50.0); HGB 13.3 g/dL (13.0-17.0); Lymphocytes # (A) 1.44 X 10*3/uL (0.90-5.00); Lymphocytes % (A) 18.3 %; MCH 27.9 pg (27.0-32.0); MCV 90.1 FL (80.0-97.0); Mean Platelet Volume 11.8 FL (9.5-12.2); Monocytes # (A) 0.48 X 10*3/uL (0.20-1.00); Monocytes % (A) 6.1 %; NRBC Per 100 WBC 0 X 10*3/uL (0.00-0.01); Neutrophils # (A) 5.87 X 10*3/uL (1.80-7.70); Neutrophils % (A) 74.5 %; Platelet Count 126 X 10*3/uL (140-440); RBC 4.76 X 10*6/uL (4.40-5.60); RDW 16.6 % (11.5-14.5); WBC 7.87 X 10*3/uL (4.50-10.00)
[2024-01-17 10:17] LABS: ALT 13 U/L (10-49); AST 20 U/L (14-35); Albumin 3.5 g/dL (3.8-4.9); Albumin/Globulin Ratio 1.59 Ratio (1.60-3.17); Alkaline Phosphatase 90 U/L (41-126); BUN/Creat Ratio 10.78 Ratio (12.00-20.00); Blood Urea Nitrogen 9.7 mg/dL (9.0-27.0); Calcium 8.5 mg/dL (8.7-10.3); Carbon Dioxide 27.2 mmol/L (21.6-31.8); Chloride 106 mmol/L (96-109); Globulin 2.2 g/dL (1.6-3.3); Glucose 94 mg/dL (70-110); Potassium 3.9 mmol/L (3.5-5.5); Sodium 144 mmol/L (135-145); Total Bilirubin 0.7 mg/dL (0.3-1.2); Total Protein 5.7 g/dL (6.2-8.2)
[2024-01-17 11:39] LABS: Glucose,Whole Blood 166 mg/dL (70-110)
--- NOTE | 2024-01-17 14:15 | US ---
EXAMINATION TYPE: US arterial LE multi level DATE OF EXAM: 01/17/2024 1:48 PM CLINICAL INDICATION: Male, 68 years old with history of Left lower extremity wound/cold feet; Lower e xtremity wound, cold feet. History of: Smoker: Previous Hypertension: Yes Diabetic: Yes Hyperlipidemia: Yes TIA/CVA: No Previous Vascular Surgery: No CAD: No WA: No Vascular Ulcers: Yes left Claudication: Both Doppler Waveforms: Right: Monophasic Left: Monophasic Right Brachial Pressure: Deferred due to IV Left Brachial Pressure: 124 Ankle-Brachial Indices: Right: 0.32 *Limitations due to movement Left: 0.71 *Limitations due to movement (Vessel hardening > 1.4; Normal 0.9 - 1.4, Moderate 0.7 - 0.9, Severe 0.5-0.7) Toe Brachial Indices: Right: Unable to obtain due to patient movement Left: 0.31 Exam is very limited due to patient movement with cuff deflation. ?Consider additional modality to ev aluate. *Bilateral dorsalis pedis artery- faint signals were heard, unable to produce waveforms. IMPRESSION: Severe right and moderate to severe left ankle-brachial indices.
[2024-01-17 14:27] VITALS: BMI 28.4
[2024-01-17 17:01] LABS: Glucose,Whole Blood 102 mg/dL (70-110)
[2024-01-17 19:27] LABS: Glucose,Whole Blood 142 mg/dL (70-110)
[2024-01-18 06:05] LABS: Glucose,Whole Blood 150 mg/dL (70-110)
[2024-01-18 10:58] LABS: African American GFR (CKD) >90 (>60 ml/min/1.73 sqM); Non-African American GFR(CKD) >90 (>60 ml/min/1.73 sqM)
[2024-01-18 11:48] LABS: Glucose,Whole Blood 109 mg/dL (70-110)
[2024-01-18 16:15] LABS: Glucose,Whole Blood 144 mg/dL (70-110)
--- NOTE | 2024-01-18 16:28 | P.PN ---
Subjective Progress Note Date: 01/17/24 Principal diagnosis: Reason for follow-up is left foot wound and cellulitis Patient is a 68-year-old male with a past medical history significant for COPD diabetes mellitus hypertension hyperlipidemia recent admission to the hospital about a month ago with multiple falls prolonged stay on the floor with rhabdomyolysis subsequently stabilized and discharged home patient now presenting back to the hospital concerning for left foot wound as well as swelling and erythema, patient be diagnosed with a cellulitis prompting this consultation. On today's evaluation that is 01/17/2024, patient has been afebrile, patient is breathing comfortably and is currently on 5 L nasal cannula oxygen, patient denies having any significant cough no chest pain shortness of breath, patient denies nausea vomiting or diarrhea and no abdominal pain, patient has any worsening pain to the left foot redness slightly decreased Patient white count is 7.87, creatinine 0.9 Objective - Vital Signs Vital signs: Vital Signs Temp 98.0 F 01/17/24 12:28 Pulse 78 01/17/24 16:03 Resp 18 01/17/24 12:28 BP 111/62 01/17/24 12:28 Pulse Ox 94 L 01/17/24 12:28 FiO2 Intake & Output 01/16/24 01/17/24 01/17/24 18:59 06:59 18:59 Output Total 300 2400 Balance -300 -2400 Weight 92.533 kg 92.533 kg 92.533 kg Output: Urine 300 2400 - Exam GENERAL DESCRIPTION: An elderly male lying in bed in no distress RESPIRATORY SYSTEM: Unlabored breathing , decreased breath sounds at bases HEART: S1 S2 regular rate and rhythm , ABDOMEN: Soft , no tenderness EXTREMITIES: Left foot lateral border did have some necrotic wound minimal redness - Labs CBC & Chem 7: 01/17/24 06:26 01/18/24 09:58 Labs: Abnormal Lab Results - Last 24 Hours (Table) 01/17/24 01/17/24 01/17/24 Range/Units 06:26 06:26 11:38 MCHC 31.0 L (32.0-37.0) g/dL RDW 16.6 H (11.5-14.5) % Plt Count 126 L (140-440) X 10*3/uL Eosinophils # 0.03 L (0.04-0.35) X 10*3/uL BUN/Creatinine Ratio 10.78 L (12.00-20.00) Ratio POC Glucose (mg/dL) 166 H (70-110) mg/dL Calcium 8.5 L (8.7-10.3) mg/dL Total Protein 5.7 L (6.2-8.2) g/dL Albumin 3.5 L (3.8-4.9) g/dL Albumin/Globulin Ratio 1.59 L (1.60-3.17) Ratio Assessment and Plan (1) Wound of left foot Current Visit: Yes Status: Acute Code(s): S91.302A - UNSPECIFIED OPEN WOUND, LEFT FOOT, INITIAL ENCOUNTER SNOMED Code(s): 54835533525307934 (2) Cellulitis of left foot Current Visit: Yes Status: Acute Code(s): L03.116 - CELLULITIS OF LEFT LOWER LIMB SNOMED Code(s): 89828895930257916 Plan: 1patient presented to hospital with a left foot wound x 3 mostly on the lateral border and this patient was recently did have admission to the hospital after a fall and did have evidence of rhabdomyolysis now with the wounds questionably pressure related versus ischemic as the patient did have a cold feet with a component of cellulitis failing outpatient oral Keflex therapy 2-currently waiting for arterial Doppler/ABIs 3-patient to continue with vancomycin pharmacy to dose target trough of 15 while watching kidney function and Vanco trough closely for the complaint of cellulitis while watching his kidney function closely Dictation was produced using [employer] dictation software. please excuse any gramma tical, word or spelling errors. Time with Patient: Less than 30
--- NOTE | 2024-01-18 16:29 | P.PN ---
Subjective Progress Note Date: 01/18/24 Principal diagnosis: Reason for follow-up is left foot wound and cellulitis Patient is a 68-year-old male with a past medical history significant for COPD diabetes mellitus hypertension hyperlipidemia recent admission to the hospital about a month ago with multiple falls prolonged stay on the floor with rhabdomyolysis subsequently stabilized and discharged home patient now presenting back to the hospital concerning for left foot wound as well as swelling and erythema, patient be diagnosed with a cellulitis prompting this consultation. On today's evaluation that is 01/18/2024,the patient denies any fever or any chills, patient is breathing comfortably on 5 L nasal current oxygen, the patient denies chest pain shortness of breath and no significant cough, patient denies abdominal pain, no nausea vomiting or diarrhea. Patient mention improvement in pain and redness to the left foot there is no drainage. Patient creatinine 0.67 Vanco trough is 12.9 blood culture pending left foot wound cultures pending, patient did have BORA with severe right and moderate to severe left ABIs Objective - Vital Signs Vital signs: Vital Signs Temp 99.2 F 01/18/24 13:08 Pulse 85 01/18/24 13:08 Resp 18 01/18/24 13:08 BP 95/52 01/18/24 13:08 Pulse Ox 91 L 01/18/24 13:08 FiO2 Intake & Output 01/17/24 01/18/24 01/18/24 18:59 06:59 18:59 Intake Total 1785 Output Total 2400 750 Balance -2400 1035 Weight 92.533 kg Intake: Intake, IV Titration 825 Amount Sodium Chloride 0.9% 1, 825 000 ml @ 75 mls/hr IV . [id number] [facility] Rx#:[id number] Oral 960 Output: Urine 2400 750 Other: Voiding Method Urinal # Voids 3 1 - Exam GENERAL DESCRIPTION: An elderly male lying in bed in no distress RESPIRATORY SYSTEM: Unlabored breathing , decreased breath sounds at bases HEART: S1 S2 regular rate and rhythm , ABDOMEN: Soft , no tenderness EXTREMITIES: Left foot lateral border did have some necrotic wound minimal redness - Labs CBC & Chem 7: 01/17/24 06:26 01/18/24 09:58 Labs: Abnormal Lab Results - Last 24 Hours (Table) 01/17/24 01/18/24 01/18/24 Range/Units 19:24 06:04 16:13 POC Glucose (mg/dL) 142 H 150 H 144 H (70-110) mg/dL Microbiology - Last 24 Hours (Table) 01/16/24 16:09 Gram Stain - Preliminary Foot - Left 01/16/24 14:50 Blood Culture - Preliminary Blood 01/16/24 14:35 Blood Culture - Preliminary Blood Assessment and Plan (1) Wound of left foot Current Visit: Yes Status: Acute Code(s): S91.302A - UNSPECIFIED OPEN WOUND, LEFT FOOT, INITIAL ENCOUNTER SNOMED Code(s): 88790330078754593 (2) Cellulitis of left foot Current Visit: Yes Status: Acute Code(s): L03.116 - CELLULITIS OF LEFT LOWER LIMB SNOMED Code(s): 76275786644448092 Plan: 1patient presented to hospital with a left foot wound x 3 mostly on the lateral border and this patient was recently did have admission to the hospital after a fall and did have evidence of rhabdomyolysis now with the wounds questionably pressure related versus ischemic as the patient did have a cold feet with a component of cellulitis failing outpatient oral Keflex therapy 2-patient did have significant abnormality on the ABIs we will consult vascular surgery for evaluation 3-patient to continue with vancomycin pharmacy to dose for cellulitis while waiting for the culture to finalize Dictation was produced using [employer] dictation software. please excuse any grammatical, word or spelling errors. Time with Patient: Less than 30
[2024-01-18] MEDS: VANCOMYCIN TROUGH DUE 1 EACH MISC MISCELLANE ONE (17:41)
[2024-01-18] MEDS: VANCOMYCIN 1,750 MG in SODIUM CHLORIDE 0.9% 500 ML 500 ML IVPB SCH (18:13)
[2024-01-18 19:16] LABS: Glucose,Whole Blood 193 mg/dL (70-110)
--- NOTE | 2024-01-19 05:04 | P.PN ---
Subjective Patient is a pleasant 68 years old male with past medical history of diabetes mellitus hypertension, hyperlipidemia, COPD with chronic hypoxic respiratory failure, patient states he uses 3 to 5 L/min at baseline at home. His wirer maintenance is Dr. Carroll. at bedside. As per patient and family patient has been having this problem in his left foot for about 1 to 2 months which started like a blood blister and popped up later on after he saw his primary doctor. Patient with no significant improvement and the last few days got more worse so he decided come to emergency room. He was prescribed some antibiotics by his doctor as an outside care however with no improvement Patient denies any other symptoms no chest pain or dyspnea no change in urine or bowel habits. He denies smoking he states he quit 3 years ago, he drinks alcohol occasionally about twice per week No illicit drugs. Patient is afebrile, blood pressure on the low side when he came in 86/38 and currently improved to 116/70 Lactic acid elevated 4.9 came back down to 1.6 Foot x-ray showing no fracture, no evidence of osteomyelitis Urine analysis is negative for infection EKG shows sinus rhythm at [address]-T changes. Rest of labs reviewed and they are unremarkable Patient was started on normal saline 75 mL/h on IV vancomycin admitted with ID team consult 01/19/2024 pt left foot cellulitis looks the same with dark spot on the lateral foot border , forefoot, midfoot and lateral mallulous with conservative Images discoloration. No warmth no significant pain or tenderness Vascular ultrasound showing severe disease on the right side and moderate to severe disease on the left side. Vascular surgery were consulted Patient was placed on IV vancomycin after he failed Keflex as an outpatient Objective - Vital Signs Vital signs: Vital Signs Temp 97.3 F L 01/18/24 08:00 Pulse 88 01/18/24 09:15 Resp 20 01/18/24 08:00 BP 125/55 01/18/24 08:00 Pulse Ox 86 L 01/18/24 02:00 FiO2 Intake & Output 01/17/24 01/18/24 01/18/24 18:59 06:59 18:59 Intake Total 1785 Output Total 2400 750 Balance -2400 1035 Weight 92.533 kg Intake: Intake, IV Titration 825 Amount Sodium Chloride 0.9% 1, 825 000 ml @ 75 mls/hr IV . [id number] [facility] Rx#:[id number] Oral 960 Output: Urine 2400 750 Other: Voiding Method Urinal # Voids 3 - Exam GENERAL: The patient is alert and oriented x3, not in any acute distress. Well developed, well nourished. HEENT: Pupils are round and equally reacting to light. EOMI. No scleral icterus. No conjunctival pallor. Normocephalic, atraumatic. No pharyngeal erythema. No thyromegaly. CARDIOVASCULAR: S1 and S2 present. No murmurs, rubs, or gallops. PULMONARY: Chest is clear to auscultation, no wheezing , no crackles. ABDOMEN: Soft, nontender, nondistended, normoactive bowel sounds. No palpable organomegaly. MUSCULOSKELETAL: No joint swelling or deformity. -EXTREMITIES: No cyanosis, clubbing, or pedal edema. Left foot mildly swollen, with circular areas of dry black discoloration on the lateral left forefoot ante riorly and in the middle and there is another spot on the lateral malleolus. No significant surrounding cellulitis NEUROLOGICAL: Gross neurological examination did not reveal any focal deficits. SKIN: No rashes. no petechiae. - Labs CBC & Chem 7: 01/17/24 06:26 01/18/24 09:58 Labs: Abnormal Lab Results - Last 24 Hours (Table) 01/17/24 01/18/24 Range/Units : 06:04 POC Glucose (mg/dL) 142 H 150 H (70-110) mg/dL Microbiology - Last 24 Hours (Table) 01/16/24 16:09 Gram Stain - Preliminary Foot - Left 01/16/24 14:50 Blood Culture - Preliminary Blood 01/16/24 14:35 Blood Culture - Preliminary Blood Assessment and Plan Assessment: Left foot infection and cellulitis with possible deep-seated infection related to his diabetes, failed outpatient treatment Moderate to severe peripheral vascular disease Diabetes mellitus type 2 Hypertension Hyperlipidemia COPD without acute exacerbation Chronic hypoxic respiratory failure secondary to above continue with IV vancomycin Plan: Continue with IV hydration ID team consult Vascular team consult Pain is minimal DVT prophylaxis subcutaneous heparin GI prophylaxis Pepcid Physical therapy evaluation Prognosis is guarded
[2024-01-19 06:01] LABS: Glucose,Whole Blood 97 mg/dL (70-110)
[2024-01-19 08:33] LABS: Basophils # (A) 0.04 X 10*3/uL (0.00-0.10); Basophils % (A) 0.5 %; Eosinophils # (A) 0.05 X 10*3/uL (0.04-0.35); Eosinophils % (A) 0.7 %; HGB 13.7 g/dL (13.0-17.0); Lymphocytes # (A) 1.64 X 10*3/uL (0.90-5.00); Lymphocytes % (A) 21.4 %; MCH 28.1 pg (27.0-32.0); MCHC 31.1 g/dL (32.0-37.0); MCV 90.2 FL (80.0-97.0); Mean Platelet Volume 12.6 FL (9.5-12.2); Monocytes # (A) 0.52 X 10*3/uL (0.20-1.00); Monocytes % (A) 6.8 %; NRBC Per 100 WBC 0 X 10*3/uL (0.00-0.01); Neutrophils # (A) 5.41 X 10*3/uL (1.80-7.70); Neutrophils % (A) 70.5 %; Platelet Count 133 X 10*3/uL (140-440); RBC 4.88 X 10*6/uL (4.40-5.60); RDW 16.1 % (11.5-14.5); WBC 7.67 X 10*3/uL (4.50-10.00)
[2024-01-19 08:48] LABS: BUN/Creat Ratio 17.14 Ratio (12.00-20.00); Chloride 107 mmol/L (96-109); Glucose 94 mg/dL (70-110); Potassium 3.7 mmol/L (3.5-5.5); Sodium 146 mmol/L (135-145)
--- NOTE | 2024-01-19 11:16 | CT ---
EXAMINATION TYPE: CT angio abd aorta w/Runoff DATE OF EXAM: 01/19/2024 COMPARISON: None INDICATION: claudication, nonpalpable Fem pulses DLP: 2637.4 mGycm, Automated exposure control for dose reduction was used. CONTRAST: 100 mL of Isovue 370. Study performed without Oral Contrast TECHNIQUE: Axial images were obtained from above the diaphragm to the pubic rami in the axial plane a t 5 mm thick sections. Reconstructed images are reviewed on the computer in the coronal plane. FINDINGS: Limited CT sections are obtained the lung bases. Pulmonary fibrosis is in the posterior right lung b ase. Mild consolidation is present dependent right lower lobe. Coronary artery calcifications noted. CT ABDOMEN: Liver: Normal Spleen: Normal Pancreas: Normal Adrenal glands: The adrenal glands are normal. Gallbladder: Normal Kidneys: No masses are evident. No hydronephrosis is present. No cysts are present. Vascular calci fication is present on the left. No obstructing renal stones are evident. Aorta: Vascular calcification is within the aorta. Inferior vena cava: Normal. CT PELVIS: Loops of bowel within the abdomen and pelvis are normal. This study is without oral contrast limi ting bowel evaluation. Appendix: Normal as visualized. Urinary bladder: Normal. Genitourinary structures: Prostate is prominent. Osseous structures: No suspicious lytic or sclerotic lesions. Aortic runoff: Following contrast imaging is reviewed in the arterial phase. Aorta: Aortic calcification is present. The superior mesenteric artery and celiac axis are patent. Mi ld stenosis at the origin of the superior mesenteric artery is not excluded. Renal arteries have vasc ular calcification. No dissection or aneurysm is evident. There is thrombus or filling defect along t he left posterior lateral aorta. The common iliac arteries are patent0 external iliac arteries are pa tent. There is some moderate narrowing of the left proximal external iliac artery. There is moderate to severe narrowing of the right external iliac artery near its origin. Runoff: There is mild to moderate narrowing of the distal common carotid arteries, left more so than right. Profunda femoris on the left may be occluded. Superficial femoral arteries appear occluded at their origins bilaterally. Collateral vascularization extends towards the level of the knee. There ma y be some reconstitution of the right popliteal artery. Left popliteal artery does not appear reconst ituted. Right trifurcation vessels patent anterior and posterior tibial arteries and peroneal artery. These s mall caliber. Anterior and posterior tibial arteries on the right are patent at the level of the ankl e. Some vascular calcifications within the proximal left trifurcation vessels. Posterior tibial arter y appears to be patent. Peroneal artery appears to be patent. These are small caliber. Vascular calci fication is small amount of contrast within the proximal to mid anterior tibial artery. This terminat es above the ankle. Peroneal artery and posterior tibial artery on the left. Repeat level of the ankl e. IMPRESSION: 1. Occlusion of the bilateral superficial femoral arteries. 2. Collateralization reconstitutes the right popliteal artery and the bilateral trifurcation vessels. These have small caliber but appear patent to the ankle on the right left peroneal and posterior tib ial arteries patent to the ankle on the left.
[2024-01-19 11:32] LABS: Glucose,Whole Blood 123 mg/dL (70-110)
--- NOTE | 2024-01-19 12:52 | P.GSCN ---
History of Present Illness Consult date: 01/19/24 Reason for Consult: Abnormal ABIs, severe PAD Requesting physician: Leda Zhang History of present illness: This is a pleasant 68-year-old male presented to the emergency department complaining of left foot wound and swelling. Apparently patient was seen on the outpatient basis and started on Keflex for cellulitis.. Patient has a history of COPD, diabetes mellitus, hyperlipidemia and hypertension. He is a former smoker. States that he had developed wounds to the left lateral aspect of his foot after a previous fall and hospitalization. States that they had turned into blood blisters and then had opened. He does report pain with ambulation and states that he is not able to walk very far due to pain in his legs and feet. Infectious disease was consulted for left foot wounds and cellulitis. ABIs were completed with right 0.32 and left 0.7. Vascular surgery was consulted for severe peripheral arterial disease. Review of Systems A 14 point review systems was completed all pertinent positives and negatives as stated in the HPI. Past Medical History Past Medical History: COPD, Diabetes Mellitus, Hyperlipidemia, Hypertension Additional Past Medical History / Comment(s): pt reports having spots on his haroldo gs, states its recent and he has an upcoming apt with the cancer clinic History of Any Multi-Drug Resistant Organisms: None Reported Past Surgical History: No Surgical Hx Reported Additional Past Surgical History / Comment(s): Orthopedic arm surgery Past Psychological History: No Psychological Hx Reported Smoking Status: Former smoker Past Alcohol Use History: Occasional Past Drug Use History: None Reported Medications and Allergies Home Medications Medication Instructions Recorded Confirmed Type Lidocaine 5% Patch [Lidoderm 5% 1 patch TOPICAL DAILY PRN #30 patch 12/08/23 01/16/24 Rx Patch] Glimepiride 2 mg PO BID 12/09/23 01/16/24 History Rosuvastatin Calcium 40 mg PO DAILY 12/09/23 01/16/24 History Furosemide [Lasix] 40 mg PO DAILY #30 tablet 12/17/23 01/16/24 Rx Ipratropium-Albuterol Nebulize 3 ml INHALATION RT-QID #100 each 12/17/23 01/16/24 Rx [Duoneb 0.5 mg-3 mg/3 ml Soln] Albuterol Inhaler [Ventolin Hfa 2 puff INHALATION RT-Q6H PRN 01/16/24 01/16/24 History Inhaler] Budesonide-Formot 160-4.5 Mcg 2 puff INHALATION RT-BID 01/16/24 01/16/24 History [Symbicort 160-4.5 Mcg Inhaler] Cephalexin [Keflex] 500 mg PO QID 01/16/24 01/16/24 History Ibuprofen [Motrin] 800 mg PO Q12H PRN 01/16/24 01/16/24 History Multivitamins, Thera [Multivitamin 1 tab PO DAILY 01/16/24 01/16/24 History (formulary)] Allergies Allergy/AdvReac Type Severity Reaction Status Date / Time No Known Allergies Allergy Verified 01/16/24 16:19 Surgical - Exam Vital Signs Temp Pulse Resp BP Pulse Ox 97.6 F 78 24 80/38 92 L 01/16/24 14:01 01/16/24 14:01 01/16/24 14:01 01/16/24 14:01 01/16/24 14:01 General appearance: The patient is alert, oriented, appears in no acute distress. HET: Head is normocephalic and atraumatic. Pupils are equal and reactive. Neck: Supple. Heart: Regular. Lungs: Equal expansion, normal respiratory effort. Abdomen: Soft, nontender, nondistended. Extremities: Bilateral lower extremities warm to the touch. Right foot without any wounds noted. Left foot with 3 wounds to the lateral aspect on the ankle m idfoot and near the fifth toe that are dry. Nonpalpable bilateral lower extremity pulses. Neurological: No focal deficits. Alert and oriented x 3. Results - Labs 01/19/24 04:59 01/19/24 04:59 Abnormal Lab Results - Last 24 Hours (Table) 01/18/24 01/18/24 Range/Units 16:13 19:13 POC Glucose (mg/dL) 144 H 193 H (70-110) mg/dL Microbiology - Last 24 Hours (Table) 01/16/24 14:50 Blood Culture - Preliminary Blood 01/16/24 14:35 Blood Culture - Preliminary Blood 01/16/24 16:09 Gram Stain - Preliminary Foot - Left Diabetes panel 01/18/24 Range/Units 09:58 Creatinine 0.67 (0.66-1.25) mg/dL Pituitary panel 01/18/24 Range/Units 09:58 Creatinine 0.67 (0.66-1.25) mg/dL Adrenal panel 01/18/24 Range/Units 09:58 Creatinine 0.67 (0.66-1.25) mg/dL - Imaging Comments: Lower extremity arterial duplex reports severe right and moderate to severe left ankle-brachial indices. Right 0.32, left 0.7 Assessment and Plan Assessment: 1. Nonhealing left lower extremity wounds 2. Peripheral arterial disease with chronic SFA occlusions, chronic aorto iliac disease 3. Caudication 4. Left lower extremity cellulitis 5. COPD 6. Diabetes mellitus 7. Hyperlipidemia and hypertension Plan: 1. Continue with antibiotic recommendations from infectious disease 2. CTA abdomin, pelvis and aorta with runoff ordered and reviewed. Patient with chronic lower extremity peripheral arterial disease 3. Patient will likely need left below the knee bypass and aortoiliac graft on the left. This is all chronic disease and can be done as an outpatient. Further workup and cardiology clearance will be needed. 4. Rest of medical management per primary medical team Thank you for this consultation, we will continue to follow. Patient will need to follow-up with vascular surgery on discharge. The impression and plan of care has been dictated as directed. I performed a history and examination of this patient, discussed the same with the dictator. I agree with the dictator's note ,documented as a scribe. Any additional findings or plans will be noted.
[2024-01-19] MEDS: DEXTROSE 5% IN WATER 1,000 ML IV SCH (14:00)
[2024-01-19 16:29] LABS: Glucose,Whole Blood 176 mg/dL (70-110)
[2024-01-19 20:55] LABS: Glucose,Whole Blood 202 mg/dL (70-110)
[2024-01-19 21:02] VITALS: RESP 18
[2024-01-20 06:11] LABS: Glucose,Whole Blood 106 mg/dL (70-110)
--- NOTE | 2024-01-20 06:14 | P.PN ---
Subjective Progress Note Date: 01/19/24 Patient is a pleasant 68 years old male with past medical history of diabetes mellitus hypertension, hyperlipidemia, COPD with chronic hypoxic respiratory failure, patient states he uses 3 to 5 L/min at baseline at home. His pit shoveler is Dr. Carroll. at bedside. As per patient and family patient has been having this problem in his left foot for about 1 to 2 months which started like a blood blister and popped up later on after he saw his primary doctor. Patient with no significant improvement and the last few days got more worse so he decided come to emergency room. He was prescribed some antibiotics by his doctor as an outside care however with no improvement Patient denies any other symptoms no chest pain or dyspnea no change in urine or bowel habits. He denies smoking he states he quit 3 years ago, he drinks alcohol occasionally about twice per week No illicit drugs. Patient is afebrile, blood pressure on the low side when he came in 86/38 and currently improved to 116/70 Lactic acid elevated 4.9 came back down to 1.6 Foot x-ray showing no fracture, no evidence of osteomyelitis Urine analysis is negative for infection EKG shows sinus rhythm at [address]-T changes. Rest of labs reviewed and they are unremarkable Patient was started on normal saline 75 mL/h on IV vancomycin admitted with ID team consult 01/18/2024 pt left foot cellulitis looks the same with dark spot on the lateral foot border , forefoot, midfoot and lateral mallulous with conservative Images discoloration. No warmth no significant pain or tenderness Vascular ultrasound showing severe disease on the right side and moderate to severe disease on the left side. Vascular surgery were consulted Patient was placed on IV vancomycin after he failed Keflex as an outpatient 01/19/2024 Patient is seen in follow-up today with infectious disease and vascular surgery following. Patient is maintained on antibiotics and awaiting cultures to finalize. Culture showing Enterobacter and awaiting finalized. Blood cultures thus far remain negative. Vascular surgery consulted as this appears all likely chronic and recommending outpatient follow-up. Arteriogram ordered and pending for further evaluation. Patient will also need cardiology and medical clearance in the outpatient setting prior to surgical intervention. Patient maintained on normal saline and having some shortness of breath will discontinue normal saline and transition to D5 and water and follow-up on repeat labs as sodium was 147 this morning. Will obtain a chest x-ray as well. Continue DuoNeb treatments. Will discuss further with case management regarding discharge planning. Review of systems: Constitutional: No reports of fatigue, fever, or chills Cardiovascular: No reports of chest pain or palpitations Respiratory: No reports of shortness of breath reports occasional cough GI: No reports of nausea, vomiting, or diarrhea : No reports of dysuria or retention Neurovascular: reports of generalized weakness and left foot pain All medications have been reviewed Physical exam: GENERAL: The patient is alert and oriented x3, Well developed, well nourished. Elderly appearing, somewhat restless HEENT: Pupils are round and equally reacting to light. EOMI. No scleral icterus. No conjunctival pallor. Normocephalic, atraumatic. No pharyngeal erythema. No thyromegaly. CARDIOVASCULAR: S1 and S2 muffled PULMONARY: Diminished breath sounds bilaterally otherwise chest is clear to auscultation, no wheezing , no crackles. ABDOMEN: Soft, nontender, nondistended, normoactive bowel sounds. No palpable organomegaly. MUSCULOSKELETAL: No joint swelling or deformity. EXTREMITIES: No cyanosis, clubbing, or pedal edema. Left foot mildly swollen, with circular areas of dry black discoloration on the lateral left forefoot anteriorly and in the middle and there is another spot on the lateral malleolus. No significant surrounding cellulitis NEUROLOGICAL: Gross neurological examination did not reveal any focal deficits. Diffusely weak SKIN: No rashes. no petechiae. Assessment: Left foot infection and cellulitis with possible deep-seated infection related to his diabetes, failed outpatient treatment Moderate to severe peripheral vascular disease Diabetes mellitus type 2, uncontrolled with hyperglycemia Mild hypernatremia Hypertension Hyperlipidemia COPD without acute exacerbation Chronic hypoxic respiratory failure secondary to above GI prophylaxis DVT prophylaxis Full code Plan: Continue with IV hydration although will transition to D5 and water as sodium is 147, decrease the rate Infectious disease following and patient is maintained on antibiotics. Will discuss further regarding discharge planning. Blood cultures thus far negative and wound culture showing Enterobacter and awaiting finalized cultures Vascular surgery evaluated the patient underwent arteriogram and reports will need outpatient follow-up along with medical and cardiology clearance for intervention in the outpatient setting Recommend PT/OT therapy evaluation. Will discuss with case management regarding discharge planning Due to multiple complex medical issues, prognosis is guarded Possible discharge in the next 24 to 48 hours The impression and plan of care has been dictated by Michelle Mayer, Nurse Practitioner as directed. Dr. Maria Isabel MD I have performed a history and examination and MDM of this patient, discussed the same with the dictator, and agree with the dictator's assessment and plan as written ,documented as a scribe. Based on total visit time, I have performed more than 50% of the visit. Objective - Vital Signs Vital signs: Vital Signs Temp 98.6 F 01/19/24 07:35 Pulse 88 01/19/24 07:35 Resp 18 01/19/24 07:35 BP 120/72 01/19/24 07:35 Pulse Ox 84 L 01/19/24 07:35 FiO2 Intake & Output 01/18/24 01/19/24 01/19/24 18:59 06:59 18:59 Output Total 900 Balance -900 Output: Urine 900 Other: Voiding Method Toilet Urinal # Voids 1 3 - Labs CBC & Chem 7: 01/19/24 04:59 01/19/24 04:59 Labs: Abnormal Lab Results - Last 24 Hours (Table) 01/18/24 01/18/24 01/19/24 Range/Units 16:13 19:13 04:59 MCHC 31.1 L (32.0-37.0) g/dL RDW 16.1 H (11.5-14.5) % Plt Count 133 L (140-440) X 10*3/uL MPV 12.6 H (9.5-12.2) FL Sodium (135-145) mmol/L POC Glucose (mg/dL) 144 H 193 H (70-110) mg/dL 01/19/24 Range/Units 04:59 MCHC (32.0-37.0) g/dL RDW (11.5-14.5) % Plt Count (140-440) X 10*3/uL MPV (9.5-12.2) FL Sodium 146 H (135-145) mmol/L POC Glucose (mg/dL) (70-110) mg/dL Microbiology - Last 24 Hours (Table) 01/16/24 16:09 Gram Stain - Preliminary Foot - Left Wound Culture - Preliminary Gram Neg Bacilli 01/16/24 14:50 Blood Culture - Preliminary Blood 01/16/24 14:35 Blood Culture - Preliminary Blood
--- NOTE | 2024-01-20 08:44 | P.PN ---
Subjective Progress Note Date: 01/20/24 Principal diagnosis: Left lower extremity wounds Patient is seen and examined today as a follow-up. Yesterday he underwent a CT angiogram abdomen pelvis and aorta with runoff. Patient has bilateral SFA occlusions with reconstitution at the right popliteal artery. Findings are discussed with patient. Discussed findings are chronic, patient will require left femoral to below the knee bypass. Patient currently denies any acute changes through the night. Denies any shortness of breath or chest pain. No fevers or chills. No change in lower extremity pain. Objective - Vital Signs Vital signs: Vital Signs Temp 98.8 F 01/20/24 02:00 Pulse 83 01/20/24 02:00 Resp 18 01/19/24 20:00 BP 121/72 01/20/24 02:00 Pulse Ox 95 01/20/24 02:51 FiO2 Intake & Output 01/19/24 01/20/24 01/20/24 18:59 06:59 18:59 Output Total 400 Balance -400 Output: Urine 400 Other: # Voids 3 2 - Exam General appearance: The patient is alert, oriented, appears in no acute distress. HET: Head is normocephalic and atraumatic. Pupils are equal and reactive. Neck: Supple. Heart: Regular. Lungs: Equal expansion, normal respiratory effort. Abdomen: Soft, nontender, nondistended. Extremities: Bilateral lower extremities warm to the touch. Right foot without any wounds noted. Left foot with 3 wounds to the lateral aspect on the ankle midfoot and near the fifth toe that are dry. Nonpalpable bilateral lower extremity pulses. Neurological: No focal deficits. Alert and oriented x 3. - Labs CBC & Chem 7: 01/19/24 04:59 01/19/24 04:59 Labs: Abnormal Lab Results - Last 24 Hours (Table) 01/19/24 01/19/24 01/19/24 Range/Units 04:59 04:59 11:31 MCHC 31.1 L (32.0-37.0) g/dL RDW 16.1 H (11.5-14.5) % Plt Count 133 L (140-440) X 10*3/uL MPV 12.6 H (9.5-12.2) FL Sodium 146 H (135-145) mmol/L POC Glucose (mg/dL) 123 H (70-110) mg/dL 01/19/24 01/19/24 Range/Units 16:28 20:44 MCHC (32.0-37.0) g/dL RDW (11.5-14.5) % Plt Count (140-440) X 10*3/uL MPV (9.5-12.2) FL Sodium (135-145) mmol/L POC Glucose (mg/dL) 176 H 202 H (70-110) mg/dL Microbiology - Last 24 Hours (Table) 01/16/24 14:50 Blood Culture - Preliminary Blood 01/16/24 14:35 Blood Culture - Preliminary Blood 01/16/24 16:09 Gram Stain - Preliminary Foot - Left Wound Culture - Preliminary Enterobacter cloacae Complex 01/16/24 16:09 Anaerobic Culture - Preliminary Foot - Left Assessment and Plan Assessment: 1. Nonhealing left lower extremity wounds 2. Peripheral arterial disease with chronic SFA occlusions, chronic aorto iliac disease 3. Caudication 4. Left lower extremity cellulitis 5. COPD 6. Diabetes mellitus 7. Hyperlipidemia and hypertension Plan: 1. Continue with antibiotic recommendations from infectious disease 2. CTA abdomin, pelvis and aorta with runoff ordered and reviewed. Patient with chronic lower extremity peripheral arterial disease 3. Patient will likely need left below the knee bypass and aortoiliac graft on the left. This is all chronic disease, patient will need vein mapping and can be done as an outpatient. Patient will need outpatient cardiac and medical clearance for surgery. 4. Rest of medical management per primary medical team Thank you for this consultation, patient is cleared for discharge from vascular surgery. Patient will need to follow-up with vascular surgery on discharge. The above was discussed with patient and he is agreeable to outpatient follow- up. The impression and plan of care has been dictated as directed. I performed a history and examination of this patient, discussed the same with the dictator. I agree with the dictator's note ,documented as a scribe. Any additional findings or plans will be noted.
[2024-01-20 09:43] VITALS: BP 106/58; TEMP 97.8
[2024-01-20 11:48] LABS: Glucose,Whole Blood 126 mg/dL (70-110)
[2024-01-20 12:32] VITALS: PULSE 92
--- NOTE | 2024-01-20 14:47 | P.PN ---
Subjective Progress Note Date: 01/20/24 Principal diagnosis: Reason for follow-up is left foot wound and cellulitis Patient is a 68-year-old male with a past medical history significant for COPD diabetes mellitus hypertension hyperlipidemia recent admission to the hospital about a month ago with multiple falls prolonged stay on the floor with rhabdomyolysis subsequently stabilized and discharged home patient now presenting back to the hospital concerning for left foot wound as well as swelling and erythema, patient be diagnosed with a cellulitis prompting this consultation. On today's evaluation that is 01/20/2024, the patient continues to be afebrile, the patient is on 5 L nasal cannula oxygen and breathing comfortably, the Pt denies having any chest pain or cough, the patient denies having any abdominal pain no vomiting or any diarrhea has been reported by the nursing staff, pain to the left foot has decreased intensity feeling better. No new labs has been obtained today culture positive for Enterobacter Objective - Vital Signs Vital signs: Vital Signs Temp 97.8 F 01/20/24 07:47 Pulse 88 01/20/24 09:23 Resp 18 01/20/24 09:23 BP 106/58 01/20/24 07:47 Pulse Ox 90 L 01/20/24 09:12 FiO2 Intake & Output 01/19/24 01/20/24 01/20/24 18:59 06:59 18:59 Output Total 400 Balance -400 Output: Urine 400 Other: Voiding Method Toilet # Voids 3 2 - Exam GENERAL DESCRIPTION: An elderly male lying in bed in no distress RESPIRATORY SYSTEM: Unlabored breathing , decreased breath sounds at bases HEART: S1 S2 regular rate and rhythm , ABDOMEN: Soft , no tenderness EXTREMITIES: Left foot lateral border did have some necrotic wound minimal redness - Labs CBC & Chem 7: 01/19/24 04:59 01/19/24 04:59 Labs: Abnormal Lab Results - Last 24 Hours (Table) 01/19/24 01/19/24 01/19/24 Range/Units 11:31 16:28 20:44 POC Glucose (mg/dL) 123 H 176 H 202 H (70-110) mg/dL Microbiology - Last 24 Hours (Table) 01/16/24 16:09 Gram Stain - Final Foot - Left Wound Culture - Final Enterobacter cloacae Complex 01/16/24 14:50 Blood Culture - Preliminary Blood 01/16/24 14:35 Blood Culture - Preliminary Blood 01/16/24 16:09 Anaerobic Culture - Preliminary Foot - Left Assessment and Plan (1) Wound of left foot Current Visit: Yes Status: Acute Code(s): S91.302A - UNSPECIFIED OPEN WOUND, LEFT FOOT, INITIAL ENCOUNTER SNOMED Code(s): 90733476472577787 (2) Cellulitis of left foot Current Visit: Yes Status: Acute Code(s): L03.116 - CELLULITIS OF LEFT LOWER LIMB SNOMED Code(s): 41215127910726568 Plan: 1patient presented to hospital with a left foot wound x 3 mostly on the lateral border and this patient was recently did have admission to the hospital after a fall and did have evidence of rhabdomyolysis now with the wounds questionably pressure related versus ischemic as the patient did have a cold feet with a component of cellulitis failing outpatient oral Keflex therapy 2-patient did have significant abnormality on the ABIs vascular surgery recommending outpatient workup and has cleared the patient for discharge 3-patient blood culture negative local culture growing Enterobacter discontinue vancomycin will give a dose of cefepime finishing therapy with oral Cipro discussed with HELMET BINDER for admitting team working on discharge Dictation was produced using [employer] dictation software. please excuse any grammatical, word or spelling errors. Time with Patient: Less than 30
--- NOTE | 2024-01-20 14:47 | P.PN ---
Subjective Progress Note Date: 01/19/24 Principal diagnosis: Reason for follow-up is left foot wound and cellulitis Patient is a 68-year-old male with a past medical history significant for COPD diabetes mellitus hypertension hyperlipidemia recent admission to the hospital about a month ago with multiple falls prolonged stay on the floor with rhabdomyolysis subsequently stabilized and discharged home patient now presenting back to the hospital concerning for left foot wound as well as swelling and erythema, patient be diagnosed with a cellulitis prompting this consultation. On today's evaluation that is 01/19/2024,the patient remains to be afebrile, patient is on 5 L nasal cannula supplemental oxygen however denies any shortness of breath no chest pain or cough.Patient denies having any nausea or vomiting, no abdominal pain and no diarrhea, denies any worsening pain to the left foot area Patient did have white count of 7.67, creatinine 0.7 Objective - Vital Signs Vital signs: Vital Signs Temp 98.6 F 01/19/24 07:35 Pulse 80 01/19/24 13:05 Resp 18 01/19/24 07:35 BP 120/72 01/19/24 07:35 Pulse Ox 84 L 01/19/24 07:35 FiO2 Intake & Output 01/18/24 01/19/24 01/19/24 18:59 06:59 18:59 Output Total 900 Balance -900 Output: Urine 900 Other: Voiding Method Toilet Urinal # Voids 1 3 - Exam GENERAL DESCRIPTION: An elderly male lying in bed in no distress RESPIRATORY SYSTEM: Unlabored breathing , decreased breath sounds at bases HEART: S1 S2 regular rate and rhythm , ABDOMEN: Soft , no tenderness EXTREMITIES: Left foot lateral border did have some necrotic wound minimal redness - Labs CBC & Chem 7: 01/19/24 04:59 01/19/24 04:59 Labs: Abnormal Lab Results - Last 24 Hours (Table) 01/18/24 01/18/24 01/19/24 Range/Units 16:13 19:13 04:59 MCHC 31.1 L (32.0-37.0) g/dL RDW 16.1 H (11.5-14.5) % Plt Count 133 L (140-440) X 10*3/uL MPV 12.6 H (9.5-12.2) FL Sodium (135-145) mmol/L POC Glucose (mg/dL) 144 H 193 H (70-110) mg/dL 01/19/24 01/19/24 Range/Units 04:59 11:31 MCHC (32.0-37.0) g/dL RDW (11.5-14.5) % Plt Count (140-440) X 10*3/uL MPV (9.5-12.2) FL Sodium 146 H (135-145) mmol/L POC Glucose (mg/dL) 123 H (70-110) mg/dL Microbiology - Last 24 Hours (Table) 01/16/24 16:09 Gram Stain - Preliminary Foot - Left Wound Culture - Preliminary Enterobacter cloacae Complex 01/16/24 16:09 Anaerobic Culture - Preliminary Foot - Left 01/16/24 14:50 Blood Culture - Preliminary Blood 01/16/24 14:35 Blood Culture - Preliminary Blood Assessment and Plan (1) Wound of left foot Current Visit: Yes Status: Acute Code(s): S91.302A - UNSPECIFIED OPEN WOUND, LEFT FOOT, INITIAL ENCOUNTER SNOMED Code(s): 91689359241129212 (2) Cellulitis of left foot Current Visit: Yes Status: Acute Code(s): L03.116 - CELLULITIS OF LEFT LOWER LIMB SNOMED Code(s): 91953951908150444 Plan: 1patient presented to hospital with a left foot wound x 3 mostly on the lateral border and this patient was recently did have admission to the hospital after a fall and did have evidence of rhabdomyolysis now with the wounds questionably pressure related versus ischemic as the patient did have a cold feet with a component of cellulitis failing outpatient oral Keflex therapy 2-patient did have significant abnormality on the ABIs vascular surgery currently evaluating the patient 3-patient to continue with vancomycin pharmacy to dose for cellulitis while waiting for the culture to finalize to determine discharge antibiotics Dictation was produced using [employer] dictation software. please excuse any grammatical, word or spelling errors.
[2024-01-20] MEDS ORDERED: CEFEPIME 2 GM in SODIUM CHLORIDE 0.9% 100 ML IVPB SCH (16:00)
[2024-01-20 16:03] LABS: BUN/Creat Ratio 13.29 Ratio (12.00-20.00); Blood Urea Nitrogen 9.3 mg/dL (9.0-27.0); Calcium 8.9 mg/dL (8.7-10.3); Carbon Dioxide 31.8 mmol/L (21.6-31.8); Chloride 106 mmol/L (96-109); Glucose 114 mg/dL (70-110); Magnesium 1.8 mg/dL (1.5-2.4); Potassium 3.4 mmol/L (3.5-5.5); Sodium 146 mmol/L (135-145)
--- NOTE | 2024-01-24 20:56 | P.DS ---
Providers Date of admission: 01/16/24 15:59 Expected date of discharge: 01/20/24 Attending physician: Sachin Douglass MD Consults: 01/16/24 15:57 Consult Physician Routine Consulting Provider: Leda Zhang Consult Reason/Comments: foot wound Do you want consulting provider notified?: Yes 01/18/24 16:29 Consult Physician Urgent Consulting Provider: Gisselle Diehl Consult Reason/Comments: Abnormal ABIs, severe PAD Do you want consulting provider notified?: Yes Primary care physician: Physician Nonstaff Hospital Course: Final diagnosis Left foot infection and cellulitis with possible deep-seated infection related to his diabetes, failed outpatient treatment Moderate to severe peripheral vascular disease Diabetes mellitus type 2, uncontrolled with hyperglycemia Mild hypernatremia Hypertension Hyperlipidemia COPD without acute exacerbation Chronic hypoxic respiratory failure secondary to above GI prophylaxis DVT prophylaxis Full code Discharge disposition Patient is being discharged in a stable condition with guarded prognosis to home with home care. Patient will follow-up with his primary care provider as well as vascular surgery outpatient. Patient is to continue with local wound care and antibiotics as prescribed. Total time taken is greater than 35 minutes. Hospital course This is a 68-year-old male who was recently admitted with left foot infection with concerns of cellulitis with failure of outpatient treatment. Patient seen and evaluated by vascular surgery as well as infectious disease maintained on antibiotics showing some improvements and also would most likely need further surgical intervention in the outpatient setting per vascular surgery. Patient is noncompliant in the outpatient setting with follow-up. Patient reports f eeling improved and would like to go home. Patient has been cleared by consultations recommending outpatient follow-up in the office. Please refer to other consultation notes for further HPI. Currently no reports of chest pain, shortness of breath, or palpitations. Patient is afebrile. No reports of nausea or vomiting and patient is tolerating diet. Patient will be discharged home today. Guarded prognosis and high risk for readmissions. Physical exam: Gen: This is a 68-year-old male who is awake, alert and oriented x 3, well- developed, well-nourished, elderly appearing, unkempt HEENT: Head is atraumatic, normocephalic. Pupils equal, round. Sclerae is anicteric. NECK: Supple. No JVD. No lymphadenopathy. No thyromegaly. LUNGS: Diminished breath sounds bilaterally with some scattered rhonchi. No intercostal retractions. HEART: S1, S2 are muffled ABDOMEN: Soft. Obese bowel sounds are present. No masses. No tenderness. EXTREMITIES: No pedal edema. No calf tenderness. Left foot dressing is dry and intact NEUROLOGICAL: Patient is awake, alert and oriented x3. Cranial nerves 2 through 12 are grossly intact. Please refer to medication reconciliation sheet for a list of medications. The impression and plan of care has been dictated by Michelle Mayer, Nurse Practitioner as directed. Dr. Maria Isabel MD I have performed a history and examination and MDM of this patient, discussed the same with the dictator, and agree with the dictator's assessment and plan as written ,documented as a scribe. Based on total visit time, I have performed more than 50% of the visit. Patient Condition at Discharge: Fair Plan - Discharge Summary New Discharge Prescriptions: New Ciprofloxacin HCl [Cipro] 500 mg PO BID 10 Days #20 tab Acetaminophen Tab [Tylenol] 650 mg PO Q6HR PRN tab PRN Reason: Mild Pain Or Fever > 100.5 Continue Lidocaine 5% Patch [Lidoderm 5% Patch] 1 patch TOPICAL DAILY PRN #30 patch PRN Reason: Pain Rosuvastatin Calcium 40 mg PO DAILY Budesonide-Formot 160-4.5 Mcg [Symbicort 160-4.5 Mcg Inhaler] 2 puff INHALATION RT-BID Glimepiride 2 mg PO BID Ipratropium-Albuterol Nebulize [Duoneb 0.5 mg-3 mg/3 ml Soln] 3 ml INHALATION RT-QID #100 each Furosemide [Lasix] 40 mg PO DAILY #30 tablet Multivitamins, Thera [Multivitamin (formulary)] 1 tab PO DAILY Albuterol Inhaler [Ventolin Hfa Inhaler] 2 puff INHALATION RT-Q6H PRN PRN Reason: Shortness Of Breath Ibuprofen [Motrin] 800 mg PO Q12H PRN PRN Reason: Pain Discontinued Cephalexin [Keflex] 500 mg PO QID Discharge Medication List Lidocaine 5% Patch [Lidoderm 5% Patch] 1 patch TOPICAL DAILY PRN #30 patch 12/08/23 [Rx] Glimepiride 2 mg PO BID 12/09/23 [History] Rosuvastatin Calcium 40 mg PO DAILY 12/09/23 [History] Furosemide [Lasix] 40 mg PO DAILY #30 tablet 12/17/23 [Rx] Ipratropium-Albuterol Nebulize [Duoneb 0.5 mg-3 mg/3 ml Soln] 3 ml INHALATION RT-QID #100 each 12/17/23 [Rx] Albuterol Inhaler [Ventolin Hfa Inhaler] 2 puff INHALATION RT-Q6H PRN 01/16/24 [History] Budesonide-Formot 160-4.5 Mcg [Symbicort 160-4.5 Mcg Inhaler] 2 puff INHALATION RT-BID 01/16/24 [History] Ibuprofen [Motrin] 800 mg PO Q12H PRN 01/16/24 [History] Multivitamins, Thera [Multivitamin (formulary)] 1 tab PO DAILY 01/16/24 [History] Acetaminophen Tab [Tylenol] 650 mg PO Q6HR PRN tab 01/20/24 [Rx] Ciprofloxacin HCl [Cipro] 500 mg PO BID 10 Days #20 tab 01/20/24 [Rx] Follow up Appointment(s)/Referral(s): Alexander Archibald DO [STAFF PHYSICIAN] - 1 Week Nonstaff,Physician [Primary Care Provider] - 1-2 days Activity/Diet/Wound Care/Special Instructions: Activity limited until follow-up Follow-up with primary care provider on discharge Follow-up with vascular surgery Will need cardiology as well as primary care medical clearance to proceed with surgery with vascular surgery Continue antibiotics until finished Discharge Disposition: HOME SELF-CARE
--- NOTE | 2024-01-28 11:16 | CDI ---
Documentation Clarification Form Date: 01/28/2024 11:00:56 AM From: Asia Dey Phone: Admit Date: 01/16/2024 03:59:00 PM Patient Name: Federico Prince Visit Number: [id number] Discharge Date: 01/20/2024 03:00:00 PM ATTENTION: The Clinical Documentation Specialists (CDI) and [facility] Coding Staff appreciate your assistance in clarifying documentation. Please respond to the clarification below the line at the bottom and electronically sign. The CDI & [facility] Coding staff will review the response and follow-up if needed. Please note: Queries are made part of the Legal Health Record. If you have any questions, please contact the author of this message via ITS. Dr. Stephenson E Sheet There is documentation of a 3 Left foot wounds per Consult 01/15 and following Progress Notes. Additional specificity regarding the etiology and severity of the wounds is requested. Patient history/risk factors: 68yo M, Left footinfectionandcellulitiswithpossibledeep-seatedinfectiond/t DMII, PVD, hyperglycemia, hypernatremia, HTN, HLD, COPD, CHRF, Stg 1 sacral ulcer Clinical Indicators: Wound assessment: with nopurulent discharge ordrainage. No obvious fluctuance. Erythematousand as well asedemaover the entire foot. Appears to be cellulitis. Lt foot lateral border did have a 3 wounds withnecroticbases minimal surrounding redness Pt. presented to hospital with a Lt footwoundx 3 mostly on the lateral border and this Pt. was recently did have admission to the hospital after a falland did have evidence ofrhabdomyolysisnow with the wounds questionably pressurerelatedversusischemicas the Pt. did have a cold feet with a component ofcellulitisfailing OP oral Keflextherapy Treatment: Pt. blood culture negative local culture growing Enterobacterdiscontinue vancomycin will give a dose of cefepime finishingtherapywith oral Cipro discussed with [employer] for admitting team working on discharge Please clarify the etiology and severity of the wound: Etiology: [ ] Non-pressure chronic ulcer due to diabetes [ ] Non-pressure chronic ulcer due to venous insufficiency [ ] Non-pressure chronic ulcer due to trauma [ ] Other, Please specify [ ] Unable to determine Severity: [ ] Limited to breakdown of skin [ ] With fat layer exposed [ ] Other, Please specify [ ] Unable to determine (Template Last Revised: October 2020) acute Non-pressure ulcer due to peripheral artery disease , involving the skin mainly MTDD
== END 2024-01-20 15:00 | disposition home or self-care (01) | DRG 638 ==
LOC: EC 13:50 → 5NMEDONC 15:59 → 4SSUR 18:24
PROVIDERS: ADMIT Internal Medicine; ATTEND Internal Medicine
DX: E11.628 Type 2 diabetes mellitus with other skin complications (principal); E11.52 Type 2 diabetes mellitus with diabetic peripheral angiopathy with gangrene; I70.262 Atherosclerosis of native arteries of extremities with gangrene, left leg; E87.0 Hyperosmolality and hypernatremia; E87.20 Acidosis, unspecified; J96.11 Chronic respiratory failure with hypoxia; L03.116 Cellulitis of left lower limb; J44.9 Chronic obstructive pulmonary disease, unspecified; I10 Essential (primary) hypertension; L89.151 Pressure ulcer of sacral region, stage 1; B96.89 Other specified bacterial agents as the cause of diseases classified elsewhere; I70.201 Unspecified atherosclerosis of native arteries of extremities, right leg; I70.245 Atherosclerosis of native arteries of left leg with ulceration of other part of foot; L97.521 Non-pressure chronic ulcer of other part of left foot limited to breakdown of skin; E11.65 Type 2 diabetes mellitus with hyperglycemia; E78.5 Hyperlipidemia, unspecified; R29.6 Repeated falls; R03.1 Nonspecific low blood-pressure reading; Z87.891 Personal history of nicotine dependence; Z79.84 Long term (current) use of oral hypoglycemic drugs; Z79.51 Long term (current) use of inhaled steroids; Z79.899 Other long term (current) drug therapy; Z91.81 History of falling; Z91.198 Patient's noncompliance with other medical treatment and regimen for other reason
CPT/HCPCS: 36415; 75635; 80048; 80053; 80202; 81003; 82150; 82565; 83605; 83690; 83735; 85025; 85610; 85730; 87040; 87070; 87075; 87077; 87186; 87205; 93005; 93923; 94640; 94760; 96361; 96365; 96366; 96372; 96375; 99285

== ENCOUNTER → 2024-02-08 | Outpatient (CLI) | payer MEDICARE, OTHER ==
--- NOTE | 2024-02-08 19:01 | PE ---
EXAMINATION TYPE: PET CT fusion skull to thigh DATE OF EXAM: 02/08/2024 CLINICAL INDICATION:Male, 68 years old with history of R91.1 SOLITARY PULMONARY NODULE; TECHNIQUE: Following the intravenous administration of 12.14 mCi of F-18 FDG, whole body images are performed from the skull base to the midthigh. Images are reviewed on the computer in the coronal, axial, and sagittal planes. Reconstructed rotating images are created on independent workstation and reviewed on the computer. A non-contrast CT is performed in conjunction with the PET scan. Glucose level 95 mg/dL CT DLP: 999 mGycm, Automated exposure control for dose reduction was used. COMPARISON: CT 01/19/2024, PET/CT None, FINDINGS: Mediastinal SUV mean is 2.3. Hepatic parenchyma SUV mean is 3.0. SKULL BASE AND NECK: No suspicious radiotracer activity. CHEST, MEDIASTINUM, AND HILAR REGION: Right upper lung 16 mm pulmonary nodule Max SUV 0.9. ABDOMEN AND PELVIS: No suspicious radiotracer activity. MUSCULOSKELETAL STRUCTURES: No suspicious radiotracer activity. Suspected physiologic uptake within t he right gluteus medius, left gluteus medius iliacus and iliopsoas muscle on the left. OTHER CT: Atherosclerosis of the carotid bifurcations and the coronary arteries. Fat-containing umbil ical hernia. Prostatomegaly. IMPRESSION: Right upper lung pulmonary nodule with metabolic activity at background levels suggesting granulomato us disease. Consider short-term follow-up CT chest in 3 months to ensure stability.
== END | disposition home or self-care (01) ==
LOC: RADPETMAIN 10:48
PROVIDERS: ATTEND Internal Medicine Critical Care Medicine
DX: R91.1 Solitary pulmonary nodule (principal); K42.9 Umbilical hernia without obstruction or gangrene; I65.29 Occlusion and stenosis of unspecified carotid artery
CPT/HCPCS: 78815; A9552

== ENCOUNTER 2024-04-30 10:04 | Inpatient (IN) | payer MEDICARE, OTHER ==
[2024-04-30] MEDS ORDERED: HYDROmorphone 0.5 MG/0.5 ML SYRINGE IVP PRN (10:14)
--- NOTE | 2024-04-30 10:54 | P.GSHP ---
History of Present Illness H&P Date: 04/30/24 Chief Complaint: critical limb ischemia left 68 year old gentleman with history of left lower extremity critical limb ischemia and chronic wounds presents to the hospital for left femoral tibial bypass with insitu GSV graft. - Review of Systems All systems: negative (what is mentioned in the PMH or HPI) Past Medical History Past Medical History: Cancer, COPD, Diabetes Mellitus, Hyperlipidemia, Hypertension Additional Past Medical History / Comment(s): uses O2 @ 4L NC during the day 5L NC during night,wound left ankle following wound center,wound left foot 5th di git,using w/c,lung CA-recent dx,traumatic injury left arm at work 1998 History of Any Multi-Drug Resistant Organisms: None Reported Past Surgical History: Orthopedic Surgery Additional Past Surgical History / Comment(s): ORIF left arm surgery w/ skin grafts Past Anesthesia/Blood Transfusion Reactions: No Reported Reaction Additional Past Anesthesia/Blood Transfusion Reaction / Comment(s): no known hx blood transfusion Smoking Status: Former smoker - Past Family History Mother Family Medical History: Cancer Medications and Allergies Home Medications Medication Instructions Recorded Confirmed Type Lidocaine 5% Patch [Lidoderm 5% 1 patch TOPICAL DAILY PRN #30 patch 12/08/23 04/28/24 Rx Patch] Glimepiride 2 mg PO BID 12/09/23 04/28/24 History Rosuvastatin Calcium 40 mg PO DAILY 12/09/23 04/28/24 History Furosemide [Lasix] 40 mg PO DAILY #30 tablet 12/17/23 04/28/24 Rx Albuterol Inhaler [Ventolin Hfa 2 puff INHALATION RT-Q6H PRN 01/16/24 04/28/24 History Inhaler] Budesonide-Formot 160-4.5 Mcg 2 puff INHALATION RT-BID PRN 01/16/24 04/28/24 History [Symbicort 160-4.5 Mcg Inhaler] Ibuprofen [Motrin] 800 mg PO Q12H PRN 01/16/24 04/28/24 History Multivitamins, Thera [Multivitamin 1 tab PO DAILY 01/16/24 04/28/24 History (formulary)] Acetaminophen Tab [Tylenol] 650 mg PO Q6HR PRN tab 01/20/24 04/28/24 Rx Ipratropium-Albuterol Nebulize 3 ml INHALATION BID 04/28/24 04/28/24 History [Duoneb 0.5 mg-3 mg/3 ml Soln] Allergies Allergy/AdvReac Type Severity Reaction Status Date / Time No Known Allergies Allergy Verified 04/30/24 10:20 Surgical - Exam Vital Signs Temp Pulse Resp BP Pulse Ox 97.0 F L 68 18 166/72 92 L 04/30/24 10:38 04/30/24 10:38 04/30/24 10:38 04/30/24 10:38 04/30/24 10:38 Patient Seen Date: 04/30/24 Patient Seen Time: 10:50 - General well developed, well nourished, no distress - Eyes PERRL, normal ocular movement - ENT normal pinna - Neck no masses - Cardiovascular Rhythm: regular - Abdomen Abdomen: soft, non tender - Integumentary no rash, no growths - Neurologic normal coordination - Psychiatric oriented to time, oriented to person, oriented to place, speech is normal palpable femoral pulse left non palpable dp or pt pulses Assessment and Plan Assessment: Critical limb ischemia left lower extremity 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 Plan: To OR for left femoral tibial bypass consent obtained and questions answered.
[2024-04-30 10:58] LABS: Basophils # (A) 0.1 k/uL (0-0.2); Basophils % (A) 1 %; Eosinophils # (A) 0.1 k/uL (0-0.7); Eosinophils % (A) 1 %; HCT 56.9 % (39.0-53.0); HGB 18.3 gm/dL (13.0-17.5); Hypochromasia Slight; Lymphocytes # (A) 2.4 k/uL (1.0-4.8); Lymphocytes % (A) 24 %; MCH 28.3 pg (25.0-35.0); MCHC 32.1 g/dL (31.0-37.0); MCV 88.2 fL (80.0-100.0); Mean Platelet Volume 10.2; Monocytes # (A) 0.6 k/uL (0-1.0); Monocytes % (A) 6 %; Neutrophils # (A) 6.9 k/uL (1.3-7.7); Neutrophils % (A) 68 %; Platelet Count 116 k/uL (150-450); RBC 6.45 m/uL (4.30-5.90); RDW 15.6 % (11.5-15.5); WBC 10.2 k/uL (3.8-10.6)
[2024-04-30] MEDS: MIDAZOLAM 2 MG/2 ML VIAL IV PRN (11:11)
[2024-04-30 11:13] LABS: Glucose,Whole Blood 144 mg/dL (70-110)
[2024-04-30 11:19] LABS: INR 1.1 (<1.2); Partial Thromboplastin Time 24.9 sec (22.0-30.0); Prothrombin Time 12.1 sec (10.0-12.5)
--- NOTE | 2024-04-30 11:30 | P.ANPRN ---
Procedure Note - Anesthesia - Invasive Line Right Arterial Line Time Out Performed: Yes Date of Procedure: 04/30/24 Time of Procedure: 11:10 Location of Patient: PreOp Preparation: Sterile Prep Arterial Line Location: Radial Ultrasound Used: Yes Purpose - Visualization and Identification of Vasculature: Yes Image Stored and Saved: Yes Narrative: Invasive line placement per sterile protocol utilized. AttemptX1
[2024-04-30] MEDS: ONDANSETRON 4 MG/2 ML VIAL IVP ONE (11:40)
[2024-04-30] MEDS: DEXAMETHASONE SOD PHOSPHATE 4 MG/ML 1 ML VIAL IV ONE (11:40)
[2024-04-30 11:41] LABS: African American GFR (CKD) 75 (>60 ml/min/1.73 sqM); Anion Gap 11 mmol/L; Blood Urea Nitrogen 35 mg/dL (9-20); Calcium 9.6 mg/dL (8.4-10.2); Carbon Dioxide 24 mmol/L (22-30); Chloride 106 mmol/L (98-107); Glucose 109 mg/dL (74-99); Non-African American GFR(CKD) 65 (>60 ml/min/1.73 sqM); Sodium 141 mmol/L (137-145)
[2024-04-30] MEDS ORDERED: ePHEDrine 50 MG/ML 1 ML VIAL ONE (11:41)
[2024-04-30] MEDS ORDERED: HEPARIN SODIUM,PORCINE 5,000 UNIT/ML 1 ML VIAL ONE (11:41)
[2024-04-30] MEDS ORDERED: PROPOFOL 10 MG/ML 20 ML VIAL IV ONE (11:41)
[2024-04-30] MEDS ORDERED: VASOPRESSIN 20 UNIT/ML 1 ML VIAL ONE (11:41)
[2024-04-30] MEDS ORDERED: SUCCINYLCHOLINE CHLORIDE 200 MG/10 ML VIAL IV ONE (11:41)
[2024-04-30] MEDS ORDERED: HEPARIN SODIUM,PORCINE 10,000 UNIT/ML 1 ML VIAL ONE (11:41)
[2024-04-30] MEDS ORDERED: PHENYLEPHRINE 10 MG/ML VIAL ONE (11:41)
[2024-04-30] MEDS ORDERED: ROCURONIUM 10 MG/ML (5 ML VIAL) IV ONE (11:41)
[2024-04-30] MEDS ORDERED: LIDOCAINE 1% INJ 10MG/ML (20 ML MDV) ONE (11:41)
[2024-04-30] MEDS ORDERED: fentaNYL (PF) 50 MCG/ML 2 ML AMP ONE (11:41)
[2024-04-30] MEDS: IPRATROPIUM-ALBUTEROL 3 ML NEB INHALATION STA (11:45)
[2024-04-30] MEDS: IV FLUID CONTINUATION 1,000 ML IV ONE ×2 (11:51)
[2024-04-30] MEDS: LACTATED RINGERS 1,000 ML IV SCH (11:56)
[2024-04-30 12:13] LABS: Potassium 4.2 mmol/L (3.5-5.1)
[2024-04-30] MEDS: HEPARIN SODIUM,PORCINE 10,000 UNIT in SODIUM CHLORIDE 0.9% 1,000 ML IRRIGATION ONE (12:21)
[2024-04-30] MEDS: ceFAZolin 4 GM in SODIUM CHLORIDE 0.9% 1,000 ML IRRIGATION ONE (12:22)
[2024-04-30] MEDS: THROMBIN (BOVINE) 5,000 UNIT VIAL MISCELLANE ONE (12:30)
[2024-04-30] MEDS: LACTATED RINGERS 1,000 ML IV ONE ×2 (14:13→19:00)
[2024-04-30] MEDS: IOPAMIDOL-370 100ML BTL MISCELLANE ONE ×2 (17:12)
[2024-04-30 18:06] LABS: Glucose,Whole Blood 153 mg/dL (70-110)
[2024-04-30 19:22] LABS: Glucose,Whole Blood 150 mg/dL (70-110)
[2024-04-30] MEDS ORDERED: .MORPHINE SULFATE (INJ) 10 MG/ML SYRINGE IVP PRN (19:30)
--- NOTE | 2024-04-30 19:30 | P.OP ---
Date of Procedure: 04/30/24 Preoperative Diagnosis: Critical limb ischemia left lower extremity with chronic lower leg wounds Postoperative Diagnosis: Left lower extremity critical limb ischemia with chronic left lower leg wounds. Left greater saphenous vein bypass stenosis Procedure(s) Performed: Left femoral artery endarterectomy and patch angioplasty Left femoral-tibial bypass with greater saphenous vein in situ graft Selective angiogram left lower extremity second order Transluminal balloon angioplasty of the greater saphenous vein bypass and distal anastomosis [facility] Surgeon: Alexander Archibald Estimated Blood Loss (ml): 400 Pathology: other (Femoral plaque) Condition: stable Disposition: ICU Indications for Procedure: 68-year-old gentleman with history of left lower extremity chronic wounds with previous angiogram demonstrating severe femoral artery occlusive disease with superficial femoral artery occlusion, popliteal artery occlusion with reconstitution of the distal tibioperoneal trunk with dense calcification throughout the tibial peroneal trunk and one-vessel runoff to the ankle with posterior tibial artery. Description of Procedure: Operative narrative: After written and informed consent was obtained from the patient all risks benefits and competitions were described the patient is brought to the operative suite and laid in a supine position. The area of the abdomen, left lower extremity was prepped and draped in usual sterile fashion after appropriate anesthetic was performed per the anesthesiologist. A timeout was performed in normal fashion. Antibiotics were administered prior to incision. A oblique incision was created at the left groin and dissection was carried down to the common femoral artery. The common femoral, superficial femoral and profundus femoris arteries were dissected free in a circumferential manner and controlled with vessel loops. Attention was then placed to the greater saphenous vein which was dissected free up to the saphenofemoral junction. A vessel loop was then placed around this area. Attention was then placed distally and a transverse incision was created on the medial aspect of the lower leg just below the knee with a 15 blade scalpel. Dissection was then carried down with electrocautery through the fascia to the popliteal artery. Popliteal artery, tibioperoneal trunk was then dissected free in a circumferential manner and controlled with vessel loops. The anterior tibial artery was also dissected free and visualized. Once controlled attention was then placed to dissection of the greater saphenous vein. Meticulous dissection was then performed of the greater saphenous vein and controlled with a blue vessel loop. Patient was then administered heparin. The proximal greater saphenous vein was then resected and suture ligated at the saphenofemoral junction. The vein was then brought over to the femoral artery and the artery was clamped both proximally and distally. Arteriotomy was then created with 11 blade scalpel and extended with Pott Elizondo scissors. Dense plaque was noted and endarterectomy was then performed at the common femoral, profundis and proximal superficial femoral artery with patch angioplasty with a bovine pericardial patch. Patch was sutured with 6-0 Prolene suture in a running fashion. End-to-side anastomosis was then created with 6-0 Prolene suture in a running fashion after the vein was dilated with serial dilation. Good backbleeding was noted from the vein and good brisk forward bleeding was noted from the artery. Final sutures were then placed good pulsatile blood flow was noted within the vein bypass. The vein was then ligated distally and utilizing a valvulotome the valves were destroyed up to the proximal aspect at the previous anastomosis until there was good pulsatile bleeding noted through the bypass. The tibial peroneal trunk was then controlled and arteriotomy was created with 11 blade scalpel and extended with Pott Elizondo scissors. There was good backbleeding noted. The vein was then spatulated and an end-to-side anastomosis was created with 6-0 Prolene suture in a running fashion. Prior to last sutures being placed backbleeding was once again assessed which was adequate and proximal control was released revealing poor pulsatile blood flow and therefore the bypass was accessed at the proximal anastomosis with an angiocath and a glidewire was placed followed by a 5F sheath and angiogram was obtained d emonstrating poor flow through the midportion of the vein with large collaterals noted. Final sutures were placed at the distal bypass. A glidewire was then placed across the distal bypass and balloon angioplasty was performed with a 4x20mm balloon and then a [id number] balloon throughout the bypass vein with significant improvement of the pulse and flow. Multiple incisions at the branches were created and dissection was carried down to the bypass and the branches were suture ligated. Doppler signals were then noted at the posterior tibial artery and were biphasic. The areas were then copiously irrigated with antibiotic solution. The incisions were then closed in a multilayer fashion after hemostasis was assured with Surgicel and the skin was then cleansed and dressings were placed. The patient tolerated procedure well was sent to PACU for recovery.
[2024-04-30] MEDS ORDERED: LIDOCAINE 4% PATCH TOPICAL PRN (19:32)
[2024-04-30] MEDS ORDERED: IBUPROFEN 800 MG TAB PO PRN (19:32)
[2024-04-30] MEDS ORDERED: NALOXONE 0.4 MG/ML 1 ML VIAL IV PRN (19:38)
[2024-04-30] MEDS ORDERED: Magnesium Replacement Protocol 1 EACH MISC MISCELLANE PRN (19:38)
[2024-04-30] MEDS ORDERED: Potassium Replacement Protocol 1 EACH MISC MISCELLANE PRN (19:38)
[2024-04-30 19:58] LABS: Allen Test Performed? Yes
[2024-04-30 19:59] LABS: ABG Base Excess -7.1 mmol/L; ABG HCO3 24 mmol/L (21-25); ABG PCO2 71 mmHg (35-45); ABG PH 7.14 (7.35-7.45); ABG PO2 113 mmHg (83-108); ABG TCO2 26 mmol/L (19-24)
[2024-04-30] MEDS: CHLORHEXIDINE GLUCONATE 15 ML CUP MUCOUS MEM SCH (21:03)
[2024-04-30] MEDS: GLIMEPIRIDE 2 MG TAB PO SCH (22:00)
--- NOTE | 2024-04-30 23:36 | XR ---
EXAMINATION TYPE: XR chest 1V portable DATE OF EXAM: 04/30/2024 CLINICAL HISTORY: OG placement. TECHNIQUE: Single AP portable supine view of the chest is obtained. COMPARISON: Chest x-ray from December 16, 2023 FINDINGS: There is new endotracheal tube terminating at the inferior clavicular level approximately 6 cm above the gonzalo. There is new orogastric tube projecting below diaphragm. Stable approximately 1.3 cm right upper lung pulmonary nodule. No new suspicious focal airspace opacity, pleural effusion, or pneumothorax is seen. There are left lung base not included. Cardiac silhouette size is stable an d upper limits of normal. Osseous structures are intact. IMPRESSION: 1. New endotracheal tube and orogastric tube are satisfactory in position. 2. No suspicious new acute pulmonary process.
[2024-05-01] MEDS: SYMBICORT 160-4.5 MCG INHALER INHALATION SCH (00:15)
[2024-05-01] MEDS: IPRATROPIUM-ALBUTEROL 3 ML NEB INHALATION SCH (00:16)
[2024-05-01] MEDS: RIVAROXABAN 2.5 MG TABLET PO SCH (00:52)
[2024-05-01 05:10] LABS: Basophils % (A) 0 %; Eosinophils % (A) 0 %; HCT 48.9 % (39.0-53.0); Hypochromasia Marked; Lymphocytes % (A) 8 %; MCH 28.2 pg (25.0-35.0); MCHC 31.1 g/dL (31.0-37.0); MCV 90.9 fL (80.0-100.0); Mean Platelet Volume 10.7; Monocytes # (A) 1.1 k/uL (0-1.0); Monocytes % (A) 8 %; Neutrophils # (A) 10.8 k/uL (1.3-7.7); Neutrophils % (A) 82 %; RBC 5.38 m/uL (4.30-5.90); RDW 15.5 % (11.5-15.5); WBC 13.1 k/uL (3.8-10.6)
[2024-05-01 05:13] LABS: HGB 15.2 gm/dL (13.0-17.5)
[2024-05-01 05:21] LABS: Sodium 135 mmol/L (137-145)
[2024-05-01 05:22] LABS: African American GFR (CKD) 78 (>60 ml/min/1.73 sqM); Anion Gap 4 mmol/L; Blood Urea Nitrogen 25 mg/dL (9-20); Calcium 8.7 mg/dL (8.4-10.2); Carbon Dioxide 23 mmol/L (22-30); Chloride 108 mmol/L (98-107); Glucose 193 mg/dL (74-99); Non-African American GFR(CKD) 67 (>60 ml/min/1.73 sqM); Potassium 4.5 mmol/L (3.5-5.1)
[2024-05-01 05:23] LABS: Platelet Count 96 k/uL (150-450)
[2024-05-01 06:00] LABS: ABG Base Excess -1.5 mmol/L; ABG HCO3 25 mmol/L (21-25); ABG Oxygen Saturation 97.4 % (94-97); ABG PCO2 46 mmHg (35-45); ABG PH 7.34 (7.35-7.45); ABG PO2 91 mmHg (83-108); ABG TCO2 26 mmol/L (19-24); Allen Test Performed? Yes
--- NOTE | 2024-05-01 07:46 | XR ---
EXAMINATION TYPE: XR chest 1V portable DATE OF EXAM: 05/01/2024 COMPARISON: 04/30/2024 INDICATION: Tube placement TECHNIQUE: Single frontal view of the chest is obtained. FINDINGS: The heart size is normal. The pulmonary vasculature is normal. The lungs are clear. Endotracheal tube tip is 8.7 cm above the gonzalo slightly pulled back from prior study. Nasogastric t ube transverses the thorax with tip in left upper quadrant of the abdomen. IMPRESSION: 1. Endotracheal tube is pulled back somewhat from prior examination. Consider advancing ET tube. 2. Stable nasogastric tube.
[2024-05-01] MEDS: ATORVASTATIN 80 MG TAB PO SCH (08:04)
[2024-05-01] MEDS: FUROSEMIDE 40 MG TAB PO SCH (08:04)
[2024-05-01] MEDS: MULTIVITAMINS, THERA 1 EACH TAB PO SCH (08:04)
[2024-05-01] MEDS: PANTOPRAZOLE 40 MG/10 ML VIAL IV SCH (08:04)
--- NOTE | 2024-05-01 10:11 | P.CNPUL ---
History of Present Illness Consult date: 05/01/24 Requesting physician: Alexander Archibald Reason for consult: other (Mechanical ventilator/critical care management ) Chief complaint: Left lower extremity critical limb ischemia and chronic wounds History of present illness: This is a 68-year-old male patient with a known history of oxygen dependent chronic obstructive pulmonary disease, diabetes mellitus, hyperlipidemia, hypertension, right upper lobe 16 mm pulmonary nodule with a max SUV of 0.9 suggesting granulomatous disease. He was brought in to the hospital yesterday for an elective surgery regarding his left lower limb ischemia. He did undergo a left angioplasty, left femoral tibial bypass with greater saphenous vein Walker graft, selective angiogram of the left lower extremity and transluminal balloon angioplasty of the greater saphenous vein bypass and distal anastomosis. The surgery lasted several hours. He was returned to the intensive care unit intubated on the mechanical ventilator. He is seen today in consultation in the ICU. He remains intubated on the ventilator and assist- control mode at a rate of 24, tidal volume 500, FiO2 60% and a PEEP of 5. Morning blood gases revealed a PaO2 of 91, pCO2 46 and a pH of 7.34. He is sedated on propofol at 40 mcg/kg/min. He has lactated Ringer's at 20 mL/h. Chest X no acute pulmonary process. Nasogastric tube secured in place. White count 13.1. Hemoglobin 15.2. Platelets 96,000. Sodium 135. Potassium 4.5. Bicarb 23. BUN 25. Creatinine 1.11. Glucose 193. He is on DuoNeb inhalations, Symbicort. Review of Systems ROS unobtainable: due to endotracheal tube Past Medical History Past Medical History: Cancer, COPD, Diabetes Mellitus, Hyperlipidemia, Hypertension Additional Past Medical History / Comment(s): uses O2 @ 4L NC during the day 5L NC during night,wound left ankle following wound center,wound left foot 5th digit,using w/c,lung CA-recent dx,traumatic injury left arm at work 1998 History of Any Multi-Drug Resistant Organisms: None Reported Past Surgical History: Orthopedic Surgery Additional Past Surgical History / Comment(s): ORIF left arm surgery w/ skin grafts Past Anesthesia/Blood Transfusion Reactions: No Reported Reaction Additional Past Anesthesia/Blood Transfusion Reaction / Comment(s): no known hx blood transfusion Smoking Status: Former smoker - Past Family History Mother Family Medical History: Cancer Medications and Allergies Home Medications Medication Instructions Recorded Confirmed Type Lidocaine 5% Patch [Lidoderm 5% 1 patch TOPICAL DAILY PRN #30 patch 12/08/23 04/28/24 Rx Patch] Glimepiride 2 mg PO BID 12/09/23 04/28/24 History Rosuvastatin Calcium 40 mg PO DAILY 12/09/23 04/28/24 History Furosemide [Lasix] 40 mg PO DAILY #30 tablet 12/17/23 04/28/24 Rx Albuterol Inhaler [Ventolin Hfa 2 puff INHALATION RT-Q6H PRN 01/16/24 04/28/24 History Inhaler] Budesonide-Formot 160-4.5 Mcg 2 puff INHALATION RT-BID PRN 01/16/24 04/28/24 History [Symbicort 160-4.5 Mcg Inhaler] Ibuprofen [Motrin] 800 mg PO Q12H PRN 01/16/24 04/28/24 History Multivitamins, Thera [Multivitamin 1 tab PO DAILY 01/16/24 04/28/24 History (formulary)] Acetaminophen Tab [Tylenol] 650 mg PO Q6HR PRN tab 01/20/24 04/28/24 Rx Ipratropium-Albuterol Nebulize 3 ml INHALATION BID 04/28/24 04/28/24 History [Duoneb 0.5 mg-3 mg/3 ml Soln] Allergies Allergy/AdvReac Type Severity Reaction Status Date / Time No Known Allergies Allergy Verified 04/30/24 10:20 Physical Exam Vitals: Vital Signs Temp Pulse Pulse Resp BP BP Pulse Ox 05/01/24 08:30 74 24 98 05/01/24 08:00 98.0 F 73 24 98 05/01/24 07:48 76 05/01/24 07:42 74 05/01/24 07:36 05/01/24 07:30 67 24 96 05/01/24 07:00 67 24 97/66 96 05/01/24 06:45 65 24 97/66 95 05/01/24 06:30 65 24 97/66 95 05/01/24 06:15 67 24 97/66 95 05/01/24 06:00 69 24 114/64 95 05/01/24 05:45 69 24 114/64 95 05/01/24 05:30 68 24 114/64 95 05/01/24 05:15 70 24 114/64 95 05/01/24 05:00 70 24 94/55 95 05/01/24 04:45 72 12 94/55 95 05/01/24 04:30 70 24 94/55 95 05/01/24 04:15 68 16 94/55 95 05/01/24 04:00 98.4 F 70 24 98/61 95 05/01/24 03:45 71 12 98/61 95 05/01/24 03:30 71 9 L 98/61 94 L 05/01/24 03:15 72 19 98/61 94 L 05/01/24 03:13 05/01/24 03:00 71 24 94/51 05/01/24 02:45 73 24 94/51 94 L 05/01/24 02:30 74 24 117/65 94 L 05/01/24 02:15 76 24 117/65 94 L 05/01/24 02:00 80 25 H 113/65 94 L 05/01/24 01:45 83 26 H 113/65 94 L 05/01/24 01:30 80 25 H 113/65 93 L 05/01/24 01:15 87 26 H 113/65 94 L 05/01/24 01:00 84 25 H 111/65 93 L 05/01/24 00:45 80 25 H 111/65 93 L 05/01/24 00:30 85 24 111/65 93 L 05/01/24 00:15 84 25 H 111/65 94 L 05/01/24 00:07 05/01/24 00:00 98.1 F 85 24 119/67 94 L 04/30/24 23:45 83 25 H 119/67 96 04/30/24 23:30 85 24 119/67 96 04/30/24 23:15 83 24 119/67 96 04/30/24 23:00 86 25 H 116/63 04/30/24 22:45 85 24 116/63 96 04/30/24 22:30 81 21 116/63 95 04/30/24 22:15 80 24 116/63 94 L 04/30/24 22:05 84 24 116/63 95 04/30/24 22:00 82 23 95/60 94 L 04/30/24 21:45 77 24 95/60 94 L 04/30/24 21:30 80 24 95/60 94 L 04/30/24 21:15 80 24 95/60 94 L 04/30/24 21:00 79 24 140/75 94 L 04/30/24 20:45 90 23 140/75 94 L 04/30/24 20:30 93 19 140/75 94 L 04/30/24 20:20 93 24 140/75 94 L 04/30/24 20:15 97.6 F 87 24 94 L 04/30/24 20:06 04/30/24 20:00 04/30/24 19:30 04/30/24 19:29 04/30/24 11:40 68 16 128/65 97 04/30/24 10:38 97.0 F L 68 18 166/72 92 L FiO2 05/01/24 08:30 05/01/24 08:00 60 05/01/24 07:48 05/01/24 07:42 05/01/24 07:36 60 05/01/24 07:30 05/01/24 07:00 05/01/24 06:45 05/01/24 06:30 05/01/24 06:15 05/01/24 06:00 05/01/24 05:45 05/01/24 05:30 05/01/24 05:15 05/01/24 05:00 05/01/24 04:45 05/01/24 04:30 05/01/24 04:15 05/01/24 04:00 60 05/01/24 03:45 05/01/24 03:30 05/01/24 03:15 05/01/24 03:13 60 05/01/24 03:00 05/01/24 02:45 05/01/24 02:30 05/01/24 02:15 05/01/24 02:00 05/01/24 01:45 05/01/24 01:30 05/01/24 01:15 05/01/24 01:00 05/01/24 00:45 05/01/24 00:30 05/01/24 00:15 05/01/24 00:07 60 05/01/24 00:00 80 04/30/24 23:45 04/30/24 23:30 04/30/24 23:15 04/30/24 23:00 04/30/24 22:45 04/30/24 22:30 04/30/24 22:15 04/30/24 22:05 04/30/24 22:00 04/30/24 21:45 04/30/24 21:30 04/30/24 21:15 04/30/24 21:00 04/30/24 20:45 04/30/24 20:30 04/30/24 20:20 80 04/30/24 20:15 100 04/30/24 20:06 80 04/30/24 20:00 100 04/30/24 19:30 100 04/30/24 19:29 100 04/30/24 11:40 04/30/24 10:38 Intake and Output 04/30/24 05/01/24 05/01/24 22:59 06:59 14:59 Intake Total 892.910 329.821 49.434 Output Total 2880 1200 225 Balance -1987.090 -870.179 -175.566 Intake: IV 860 160 20 Lactated Ringers 1,000 ml 60 160 20 @ 20 mls/hr IV .Q24H [facility] Rx#:[id number] Intake, IV Titration 32.910 169.821 29.434 Amount propofoL 1,000 mg In 32.910 169.821 29.434 Empty Bag 1 bag @ 15 MCG/ KG/MIN 8.573 mls/hr IV . [id number] [facility] Rx#:[id number] Output: Urine 2480 1200 225 Estimated Blood Loss 400 Other: Voiding Method Indwelling Catheter Indwelling Catheter Weight 97.9 kg ABP, PAP, CO, CI - Last 8 Hours Arterial Blood Pressure 136/56 Arterial Blood Pressure 143/59 Arterial Blood Pressure 132/54 Arterial Blood Pressure 132/57 Arterial Blood Pressure 127/55 Arterial Blood Pressure 104/48 Arterial Blood Pressure 103/47 Arterial Blood Pressure 106/49 Arterial Blood Pressure 106/48 Arterial Blood Pressure 125/54 Arterial Blood Pressure 114/50 Arterial Blood Pressure 123/53 Arterial Blood Pressure 134/56 Arterial Blood Pressure 121/53 Arterial Blood Pressure 102/46 Arterial Blood Pressure 101/45 Arterial Blood Pressure 107/47 Arterial Blood Pressure 118/51 Arterial Blood Pressure 108/48 Arterial Blood Pressure 102/45 Arterial Blood Pressure 101/44 Arterial Blood Pressure 81/39 Arterial Blood Pressure 98/44 Arterial Blood Pressure 128/55 GENERAL EXAM: Intubated, sedated 68-year-old male patient, in no apparent distress. HEAD: Normocephalic. EYES: Normal reaction of pupils, equal size. NOSE: Clear with pink turbinates. THROAT: Oral endotracheal and gastric tube secured in place. No erythema or exudates. NECK: No masses, no JVD. CHEST: No chest wall deformity. LUNGS: Equal air entry with no crackles, wheeze, rhonchi or dullness. CVS: S1 and S2 normal with no audible murmur, regular rhythm. ABDOMEN: No hepatosplenomegaly, normal bowel sounds, no guarding or rigidity. SPINE: No scoliosis or deformity SKIN: No rashes CENTRAL NERVOUS SYSTEM: No focal deficits, tone is normal in all 4 extremities. EXTREMITIES: Arterial line secured in place. Prevena wound VAC to the left groin. Dressing to the inner left lower extremity intact. Doppler pulses on the left posterior tibial. Peripheral pulses are intact. Results - Laboratory Findings CBC and BMP: 05/01/24 04:52 05/01/24 04:52 ABG ABG pH 7.34 (7.35-7.45) L 05/01/24 05:57 ABG pCO2 46 mmHg (35-45) H 05/01/24 05:57 ABG pO2 91 mmHg (83-108) 05/01/24 05:57 ABG O2 Saturation 97.4 % (94-97) H 05/01/24 05:57 PT/INR, D-dimer PT 12.1 sec (10.0-12.5) 04/30/24 10:43 INR 1.1 (<1.2) 04/30/24 10:43 Abnormal lab findings: Abnormal Labs 04/30/24 04/30/24 04/30/24 10:42 10:43 10:53 WBC RBC 6.45 H Hgb 18.3 H Hct 56.9 H RDW 15.6 H Plt Count 116 L Neutrophils # Monocytes # ABG pH ABG pCO2 ABG pO2 ABG Total CO2 ABG O2 Saturation Sodium Chloride BUN 35 H Glucose 109 H POC Glucose (mg/dL) 144 H 04/30/24 04/30/24 04/30/24 18:04 19:20 19:42 WBC RBC Hgb Hct RDW Plt Count Neutrophils # Monocytes # ABG pH 7.14 L* ABG pCO2 71 H* ABG pO2 113 H ABG Total CO2 26 H ABG O2 Saturation Sodium Chloride BUN Glucose POC Glucose (mg/dL) 153 H 150 H 05/01/24 05/01/24 05/01/24 04:52 04:52 05:57 WBC 13.1 H RBC Hgb Hct RDW Plt Count 96 L Neutrophils # 10.8 H Monocytes # 1.1 H ABG pH 7.34 L ABG pCO2 46 H ABG pO2 ABG Total CO2 26 H ABG O2 Saturation 97.4 H Sodium 135 L Chloride 108 H BUN 25 H Glucose 193 H POC Glucose (mg/dL) - Diagnostic Findings Chest x-ray: image reviewed Assessment and Plan Assessment: Critical left lower limb ischemia and chronic wounds. Status post left femoral artery endarterectomy and patch angioplasty, left femoral tibial bypass with greater saphenous vein graft, selective angiogram of the left lower extremity second-order, transluminal balloon angioplasty of the greater saphenous vein bypass and distal anastomosis. Post operative day #1 Mechanical ventilator management with plans to wean and extubate possibly today History of oxygen dependent chronic obstructive pulmonary disease History of chronic tobacco dependence History of 16 mm right upper lobe pulmonary nodule with a max SUV of 0.9 neal ggesting granulomatous disease. Being followed in the outpatient setting History of chronic back pain with poor mobility and previous surgery Diabetes mellitus, type II Hypertension Hyperlipidemia Plan: The patient was seen and evaluated Chest x-ray, labs, ABGs and medications reviewed Will give the patient a daily interruption of sedation and weaning trial Planning to extubate today if possible Continued DuoNeb inhalations, Symbicort We will continue to follow and make further recommendations based on his clinical status I have personally seen and examined the patient, performed the documentation and the assessment and plan as written. Number of minutes spent on the visit: 20.
[2024-05-01 11:41] LABS: Glucose,Whole Blood 134 mg/dL (70-110)
--- NOTE | 2024-05-01 13:53 | P.PN ---
Subjective Progress Note Date: 05/01/24 Patient is postoperative day #1 from left femoral to below-knee bypass with saphenous vein and balloon angioplasty of the stenotic areas of the vein. He is doing well has been extubated has no significant complaints of pain. Does not really notice much of a difference as far as his leg is concern Objective - Vital Signs Vital signs: Vital Signs Temp 98.0 F 05/01/24 08:00 Pulse 79 05/01/24 11:00 Resp 20 05/01/24 11:00 BP 125/54 05/01/24 10:30 Pulse Ox 93 L 05/01/24 11:00 FiO2 60 05/01/24 08:00 Intake & Output 04/30/24 05/01/24 05/01/24 18:59 06:59 18:59 Intake Total 2752 1222.731 166.867 Output Total 2400 1680 825 Balance 352 -457.269 -658.133 Weight 97.9 kg Intake: IV 2752 1020 112 .9 a line 12 Lactated Ringers 1,000 ml 220 100 @ 20 mls/hr IV .Q24H [facility] Rx#:[id number] Intake, IV Titration 202.731 54.867 Amount propofoL 1,000 mg In 202.731 54.867 Empty Bag 1 bag @ 15 MCG/ KG/MIN 8.573 mls/hr IV . [id number] [facility] Rx#:[id number] Output: Urine 2000 1680 825 Estimated Blood Loss 400 Other: Voiding Method Indwelling Catheter Indwelling Catheter ABP, PAP, CO, CI - Last Documented Arterial Blood Pressure 144/59 - Exam General is a pleasant cooperative male in no acute distress. Heart appears regular at this time. Lungs are clear, on nasal cannula. Left lower extremity dressings clean and dry. Biphasic PT signal on the left. Motor sensor intact bilaterally. Mild edema left lower extremities. - Labs CBC & Chem 7: 05/01/24 04:52 05/01/24 04:52 Labs: Abnormal Lab Results - Last 24 Hours (Table) 04/30/24 04/30/24 04/30/24 Range/Units 18:04 19:20 19:42 WBC (3.8-10.6) k/uL Plt Count (150-450) k/uL Neutrophils # (1.3-7.7) k/uL Monocytes # (0-1.0) k/uL ABG pH 7.14 L* (7.35-7.45) ABG pCO2 71 H* (35-45) mmHg ABG pO2 113 H (83-108) mmHg ABG Total CO2 26 H (19-24) mmol/L ABG O2 Saturation (94-97) % Sodium (137-145) mmol/L Chloride (98-107) mmol/L BUN (9-20) mg/dL Glucose (74-99) mg/dL POC Glucose (mg/dL) 153 H 150 H (70-110) mg/dL 05/01/24 05/01/24 05/01/24 Range/Units 04:52 04:52 05:57 WBC 13.1 H (3.8-10.6) k/uL Plt Count 96 L (150-450) k/uL Neutrophils # 10.8 H (1.3-7.7) k/uL Monocytes # 1.1 H (0-1.0) k/uL ABG pH 7.34 L (7.35-7.45) ABG pCO2 46 H (35-45) mmHg ABG pO2 (83-108) mmHg ABG Total CO2 26 H (19-24) mmol/L ABG O2 Saturation 97.4 H (94-97) % Sodium 135 L (137-145) mmol/L Chloride 108 H (98-107) mmol/L BUN 25 H (9-20) mg/dL Glucose 193 H (74-99) mg/dL POC Glucose (mg/dL) (70-110) mg/dL 05/01/24 Range/Units 11:38 WBC (3.8-10.6) k/uL Plt Count (150-450) k/uL Neutrophils # (1.3-7.7) k/uL Monocytes # (0-1.0) k/uL ABG pH (7.35-7.45) ABG pCO2 (35-45) mmHg ABG pO2 (83-108) mmHg ABG Total CO2 (19-24) mmol/L ABG O2 Saturation (94-97) % Sodium (137-145) mmol/L Chloride (98-107) mmol/L BUN (9-20) mg/dL Glucose (74-99) mg/dL POC Glucose (mg/dL) 134 H (70-110) mg/dL Assessment and Plan Assessment: Postoperative day 1 left in situ saphenous vein bypass angioplasty Critical limb ischemia left lower extremity 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 Plan: Overall doing well. Continue medical management and improvement. Up to chair, may ambulate, PT OT evaluation, may remove Diehl later today when able to stand. Clear liquid diet as tolerated.
[2024-05-01] MEDS ORDERED: DEXTROSE 50% SYRINGE 50 ML IVP PRN ×2 (15:02)
--- NOTE | 2024-05-01 15:05 | P.CONS ---
History of Present Illness - Reason for Consult Consult date: 05/01/24 - History of Present Illness 68 year old M with PMH COPD on 4-5L home O2, RUL pulmonary nodule, DM, HLD presents to [facility] for elective surgery. He has a history of LLE critical limb ischemia, underwent left femoral tibial bypass with insitu GSV graft, left femoral artery endarterectomy and patch angioplasty, angiogram of the LLE, balloon angioplasty of the GSV bypass with distal anastomosis with Dr. Archibald on 04/30. He was successfully extubated on 05/01. [facility] Physicians consulted for medical management of this patient. 05/01 Patient currently reports well controlled pain in his LLE. He reports feeling hungry. He is pleasantly confused. Currently on HFNC 7L. CBC and BMP significant for WBC 13.1, Plt 96, Na 135, Cl 108, BUN 25, glu 193. Mag 2.0. General: non toxic, no distress, appears at stated age Derm: warm, dry Head: atraumatic, normocephalic, symmetric Eyes: EOMI, no lid lag, anicteric sclera Mouth: no lip lesion, mucus membranes moist Cardiovascular: Normal S1 S2. NO murmurs, rubs or gallops Lungs: Decreased breath sounds bilaterally, no accessory muscle use Ext: LLE medial dressing c/d/i Neuro: no focal neuro deficits Psych: Alert, oriented, appropriate affect Based on my assessment of this patient, this patient meets a high complexity level of care. Acute on chronic hypoxic respiratory failure: Post extubation. Improving. Attempt to wean O2. Albuterol neb Q6H PRN SOB, DuoNeb BID scheduled. Symbicort 2 INH BID. Pulmonary on board. Leukocytosis: Likely reactive with no signs of active infection. Monitor fever profile. Diabetes Mellitus: ISS. Accuchecks ACHS. Hypoglycemic precautions. LLE critical limb ischemia status post left femoral tibial bypass with insitu GSV graft, left femoral artery endarterectomy and patch angioplasty, angiogram of the LLE, balloon angioplasty of the GSV bypass with distal anastomosis with Dr. Archibald on 04/30 CODE STATUS: FULL CODE DVT Prophylaxis: Xarelto GI Prophylaxis: Protonix IV Designated medical POA if patient is not able to make medical decisions for themselves: I have reviewed the following rn lactation consultant notes: Pulmonary, Vascular note. I have reviewed the results of the following tests: CBC, BMP. I have ordered the following tests: I have discussed the care of this patient with the following independent historian: I have independently interpreted the following test below: I have discussed the management of this patient with the following physician: Past Medical History Past Medical History: Cancer, COPD, Diabetes Mellitus, Hyperlipidemia, Hypertension Additional Past Medical History / Comment(s): uses O2 @ 4L NC during the day 5L NC during night,wound left ankle following wound center,wound left foot 5th digit,using w/c,lung [place]-recent dx,traumatic injury left arm at work 1998 History of Any Multi-Drug Resistant Organisms: None Reported Past Surgical History: Orthopedic Surgery Additional Past Surgical History / Comment(s): ORIF left arm surgery w/ skin grafts Past Anesthesia/Blood Transfusion Reactions: No Reported Reaction Additional Past Anesthesia/Blood Transfusion Reaction / Comm: no known hx blood transfusion Smoking Status: Former smoker - Past Family History Mother Family Medical History: Cancer Medications and Allergies Home Medications Medication Instructions Recorded Confirmed Type Lidocaine 5% Patch [Lidoderm 5% 1 patch TOPICAL DAILY PRN #30 patch 12/08/23 04/28/24 Rx Patch] Glimepiride 2 mg PO BID 12/09/23 04/28/24 History Rosuvastatin Calcium 40 mg PO DAILY 12/09/23 04/28/24 History Furosemide [Lasix] 40 mg PO DAILY #30 tablet 12/17/23 04/28/24 Rx Albuterol Inhaler [Ventolin Hfa 2 puff INHALATION RT-Q6H PRN 01/16/24 04/28/24 History Inhaler] Budesonide-Formot 160-4.5 Mcg 2 puff INHALATION RT-BID PRN 01/16/24 04/28/24 History [Symbicort 160-4.5 Mcg Inhaler] Ibuprofen [Motrin] 800 mg PO Q12H PRN 01/16/24 04/28/24 History Multivitamins, Thera [Multivitamin 1 tab PO DAILY 01/16/24 04/28/24 History (formulary)] Acetaminophen Tab [Tylenol] 650 mg PO Q6HR PRN tab 01/20/24 04/28/24 Rx Ipratropium-Albuterol Nebulize 3 ml INHALATION BID 04/28/24 04/28/24 History [Duoneb 0.5 mg-3 mg/3 ml Soln] Allergies Allergy/AdvReac Type Severity Reaction Status Date / Time No Known Allergies Allergy Verified 04/30/24 10:20 Physical Exam Vitals: Vital Signs Temp Pulse Resp BP Pulse Ox FiO2 05/01/24 14:00 81 18 93 L 05/01/24 13:30 78 20 112/59 92 L 05/01/24 13:00 79 20 91 L 05/01/24 12:30 75 21 119/62 91 L 05/01/24 12:00 97.8 F 101 H 20 96 05/01/24 11:30 73 20 94 L 05/01/24 11:00 79 20 93 L 05/01/24 10:30 76 20 125/54 92 L 05/01/24 10:00 74 20 92 L 05/01/24 09:30 100 24 102/62 99 05/01/24 09:00 71 24 114/66 97 05/01/24 08:30 74 24 98 05/01/24 08:00 98.0 F 73 24 98 60 05/01/24 07:48 76 05/01/24 07:42 74 05/01/24 07:36 60 05/01/24 07:30 67 24 96 05/01/24 07:00 67 24 97/66 96 05/01/24 06:45 65 24 97/66 95 05/01/24 06:30 65 24 97/66 95 05/01/24 06:15 67 24 97/66 95 05/01/24 06:00 69 24 114/64 95 05/01/24 05:45 69 24 114/64 95 05/01/24 05:30 68 24 114/64 95 05/01/24 05:15 70 24 114/64 95 05/01/24 05:00 70 24 94/55 95 05/01/24 04:45 72 12 94/55 95 05/01/24 04:30 70 24 94/55 95 05/01/24 04:15 68 16 94/55 95 05/01/24 04:00 98.4 F 70 24 98/61 95 60 05/01/24 03:45 71 12 98/61 95 05/01/24 03:30 71 9 L 98/61 94 L 05/01/24 03:15 72 19 98/61 94 L 05/01/24 03:13 60 05/01/24 03:00 71 24 94/51 05/01/24 02:45 73 24 94/51 94 L 05/01/24 02:30 74 24 117/65 94 L 05/01/24 02:15 76 24 117/65 94 L 05/01/24 02:00 80 25 H 113/65 94 L 05/01/24 01:45 83 26 H 113/65 94 L 05/01/24 01:30 80 25 H 113/65 93 L 05/01/24 01:15 87 26 H 113/65 94 L 05/01/24 01:00 84 25 H 111/65 93 L 05/01/24 00:45 80 25 H 111/65 93 L 05/01/24 00:30 85 24 111/65 93 L 05/01/24 00:15 84 25 H 111/65 94 L 05/01/24 00:07 60 05/01/24 00:00 98.1 F 85 24 119/67 94 L 80 04/30/24 23:45 83 25 H 119/67 96 04/30/24 23:30 85 24 119/67 96 04/30/24 23:15 83 24 119/67 96 04/30/24 23:00 86 25 H 116/63 04/30/24 22:45 85 24 116/63 96 04/30/24 22:30 81 21 116/63 95 04/30/24 22:15 80 24 116/63 94 L 04/30/24 22:05 84 24 116/63 95 04/30/24 22:00 82 23 95/60 94 L 04/30/24 21:45 77 24 95/60 94 L 04/30/24 21:30 80 24 95/60 94 L 04/30/24 21:15 80 24 95/60 94 L 04/30/24 21:00 79 24 140/75 94 L 04/30/24 20:45 90 23 140/75 94 L 04/30/24 20:30 93 19 140/75 94 L 04/30/24 20:20 93 24 140/75 94 L 80 04/30/24 20:15 97.6 F 87 24 94 L 100 04/30/24 20:06 80 04/30/24 20:00 100 04/30/24 19:30 100 04/30/24 19:29 100 Intake and Output 04/30/24 05/01/24 05/01/24 22:59 06:59 14:59 Intake Total 892.910 329.821 235.867 Output Total 2880 1200 2205 Balance -1986.090 -870.179 -1969.133 Intake: IV 860 160 181 .9 a line 21 Lactated Ringers 1,000 ml 60 160 160 @ 20 mls/hr IV .Q24H [facility] Rx#:[id number] Intake, IV Titration 32.910 169.821 54.867 Amount propofoL 1,000 mg In 32.910 169.821 54.867 Empty Bag 1 bag @ 15 MCG/ KG/MIN 8.573 mls/hr IV . [id number] [facility] Rx#:[id number] Output: Urine 2480 1200 2205 Estimated Blood Loss 400 Other: Voiding Method Indwelling Catheter Indwelling Catheter Indwelling Catheter Weight 97.9 kg ABP, PAP, CO, CI - Last 8 Hours Arterial Blood Pressure 141/52 Arterial Blood Pressure 126/46 Arterial Blood Pressure 134/52 Arterial Blood Pressure 134/52 Arterial Blood Pressure 139/52 Arterial Blood Pressure 133/53 Arterial Blood Pressure 144/59 Arterial Blood Pressure 140/56 Arterial Blood Pressure 122/54 Arterial Blood Pressure 157/79 Arterial Blood Pressure 141/65 Arterial Blood Pressure 136/56 Arterial Blood Pressure 143/59 Arterial Blood Pressure 132/54 Arterial Blood Pressure 132/57 Results CBC & Chem 7: 05/01/24 04:52 05/01/24 04:52 Labs: Abnormal Lab Results - Last 24 Hours (Table) 04/30/24 04/30/24 04/30/24 Range/Units 18:04 19:20 19:42 WBC (3.8-10.6) k/uL Plt Count (150-450) k/uL Neutrophils # (1.3-7.7) k/uL Monocytes # (0-1.0) k/uL ABG pH 7.14 L* (7.35-7.45) ABG pCO2 71 H* (35-45) mmHg ABG pO2 113 H (83-108) mmHg ABG Total CO2 26 H (19-24) mmol/L ABG O2 Saturation (94-97) % Sodium (137-145) mmol/L Chloride (98-107) mmol/L BUN (9-20) mg/dL Glucose (74-99) mg/dL POC Glucose (mg/dL) 153 H 150 H (70-110) mg/dL 05/01/24 05/01/24 05/01/24 Range/Units 04:52 04:52 05:57 WBC 13.1 H (3.8-10.6) k/uL Plt Count 96 L (150-450) k/uL Neutrophils # 10.8 H (1.3-7.7) k/uL Monocytes # 1.1 H (0-1.0) k/uL ABG pH 7.34 L (7.35-7.45) ABG pCO2 46 H (35-45) mmHg ABG pO2 (83-108) mmHg ABG Total CO2 26 H (19-24) mmol/L ABG O2 Saturation 97.4 H (94-97) % Sodium 135 L (137-145) mmol/L Chloride 108 H (98-107) mmol/L BUN 25 H (9-20) mg/dL Glucose 193 H (74-99) mg/dL POC Glucose (mg/dL) (70-110) mg/dL 05/01/24 Range/Units 11:38 WBC (3.8-10.6) k/uL Plt Count (150-450) k/uL Neutrophils # (1.3-7.7) k/uL Monocytes # (0-1.0) k/uL ABG pH (7.35-7.45) ABG pCO2 (35-45) mmHg ABG pO2 (83-108) mmHg ABG Total CO2 (19-24) mmol/L ABG O2 Saturation (94-97) % Sodium (137-145) mmol/L Chloride (98-107) mmol/L BUN (9-20) mg/dL Glucose (74-99) mg/dL POC Glucose (mg/dL) 134 H (70-110) mg/dL
[2024-05-01 16:15] LABS: Glucose,Whole Blood 97 mg/dL (70-110)
[2024-05-01] MEDS: INSULIN ASPART (NovoLOG) 100 UNIT/ML VIAL SQ SCH (16:44)
[2024-05-01 20:33] LABS: Glucose,Whole Blood 125 mg/dL (70-110)
[2024-05-01] MEDS: HYDROcodone/APAP 5-325MG 1 EACH TAB PO PRN (20:38)
[2024-05-02] MEDS: MORPHINE SULFATE 4 MG/ML SYRINGE IVP PRN (03:02)
[2024-05-02 05:18] LABS: Basophils % (A) 0 %; Eosinophils # (A) 0.1 k/uL (0-0.7); Eosinophils % (A) 0 %; HCT 44.2 % (39.0-53.0); HGB 13.9 gm/dL (13.0-17.5); Hypochromasia Moderate; Lymphocytes # (A) 1.9 k/uL (1.0-4.8); Lymphocytes % (A) 13 %; MCH 28.1 pg (25.0-35.0); MCHC 31.5 g/dL (31.0-37.0); MCV 89.2 fL (80.0-100.0); Mean Platelet Volume 10.5; Monocytes % (A) 7 %; Neutrophils # (A) 11.2 k/uL (1.3-7.7); Neutrophils % (A) 78 %; RBC 4.96 m/uL (4.30-5.90); RDW 15.6 % (11.5-15.5); WBC 14.4 k/uL (3.8-10.6)
[2024-05-02 05:31] LABS: Platelet Count 86 k/uL (150-450)
[2024-05-02 05:44] LABS: African American GFR (CKD) >90 (>60 ml/min/1.73 sqM); Anion Gap 1 mmol/L; Blood Urea Nitrogen 21 mg/dL (9-20); Calcium 8.5 mg/dL (8.4-10.2); Carbon Dioxide 32 mmol/L (22-30); Chloride 106 mmol/L (98-107); Glucose 140 mg/dL (74-99); Non-African American GFR(CKD) 90 (>60 ml/min/1.73 sqM); Potassium 3.8 mmol/L (3.5-5.1); Sodium 139 mmol/L (137-145)
[2024-05-02] MEDS: POTASSIUM CHLORIDE ER 20 MEQ TAB.ER PO SCH (06:27)
[2024-05-02 06:31] LABS: Glucose,Whole Blood 114 mg/dL (70-110)
--- NOTE | 2024-05-02 07:42 | XR ---
EXAMINATION TYPE: XR chest 1V portable DATE OF EXAM: 05/02/2024 COMPARISON: 05/01/2024 INDICATION: Tube assessment TECHNIQUE: Frontal views of the chest are obtained. FINDINGS: The heart size is mildly prominent. The pulmonary vasculature is normal. There is a 1.6 cm nodule right upper lobe.. Endotracheal tube and nasogastric tube removed. IMPRESSION: 1. No acute pulmonary process. 2. Nodule right upper lobe. 3. Cardiomegaly
--- NOTE | 2024-05-02 09:15 | P.PN ---
Subjective Progress Note Date: 05/02/24 This is a 68-year-old male patient with a known history of oxygen dependent chronic obstructive pulmonary disease, diabetes mellitus, hyperlipidemia, hypertension, right upper lobe 16 mm pulmonary nodule with a max SUV of 0.9 suggesting granulomatous disease. He was brought in to the hospital yesterday f or an elective surgery regarding his left lower limb ischemia. He did undergo a left angioplasty, left femoral tibial bypass with greater saphenous vein [place] graft, selective angiogram of the left lower extremity and transluminal balloon angioplasty of the greater saphenous vein bypass and distal anastomosis. The surgery lasted several hours. He was returned to the intensive care unit intubated on the mechanical ventilator. He is seen today in consultation in the ICU. He remains intubated on the ventilator and assist- control mode at a rate of 24, tidal volume 500, FiO2 60% and a PEEP of 5. Morning blood gases revealed a PaO2 of 91, pCO2 46 and a pH of 7.34. He is sedated on propofol at 40 mcg/kg/min. He has lactated Ringer's at 20 mL/h. Chest X no acute pulmonary process. Nasogastric tube secured in place. White count 13.1. Hemoglobin 15.2. Platelets 96,000. Sodium 135. Potassium 4.5. Bicarb 23. BUN 25. Creatinine 1.11. Glucose 193. He is on DuoNeb inhalations, Symbicort. The patient is seen today May 02, 2024 in follow-up in the intensive care unit. He is postoperative day #2. He is currently sitting up in bed. Awake and alert in no acute distress. He is maintaining O2 saturations in the 90s on 8 L high flow nasal cannula. He has lactated Ringer's at 20 mL/h. He does have a 47-year history of nearly 5 packs/day of smoking. He states he quit years ago. He is continued on DuoNeb inhalations, Symbicort. Anticoagulated with Xarelto. Remains on oral diuretics. Chest x-ray shows no acute pulmonary process process. There is continued noted 1.6 cm nodule in the right upper lobe. Evidence of cardiomegaly. White count 14.4. Hemoglobin 13.9. Platelets 86,000. Sodium 139. Potassium 3.8. Bicarb 32. BUN 21. Creatinine 0.82. Glucose 140. Objective - Vital Signs Vital signs: Vital Signs Temp 97.6 F 05/02/24 04:00 Pulse 80 05/02/24 07:57 Resp 14 05/02/24 06:00 BP 123/107 05/01/24 16:00 Pulse Ox 91 L 05/02/24 06:00 FiO2 60 05/01/24 08:00 Intake & Output 05/01/24 05/02/24 05/02/24 18:59 06:59 18:59 Intake Total 214.372 8031 Output Total 3235 1610 Balance -2884.133 -357 Weight 94.3 kg Intake: IV 296 253 .9 a line 36 33 Lactated Ringers 1,000 ml 260 220 @ 20 mls/hr IV .Q24H [facility] Rx#:[id number] Intake, IV Titration 54.867 Amount propofoL 1,000 mg In 54.867 Empty Bag 1 bag @ 15 MCG/ KG/MIN 8.573 mls/hr IV . [id number] [facility] Rx#:[id number] Oral 1000 Output: Urine 3235 1610 Other: Voiding Method Indwelling Catheter Indwelling Catheter ABP, PAP, CO, CI - Last Documented Arterial Blood Pressure 106/52 - Exam GENERAL EXAM:, Alert awake 68-year-old male patient, liters high flow nasal cannula, in no apparent distress. HEAD: Normocephalic. EYES: Normal reaction of pupils, equal size. NOSE: Clear with pink turbinates. THROAT: Oral endotracheal and gastric tube secured in place. No erythema or exudates. NECK: No masses, no JVD. CHEST: No chest wall deformity. LUNGS: Equal air entry with no crackles, wheeze, rhonchi or dullness. CVS: S1 and S2 normal with no audible murmur, regular rhythm. ABDOMEN: No hepatosplenomegaly, normal bowel sounds, no guarding or rigidity. SPINE: No scoliosis or deformity SKIN: No rashes CENTRAL NERVOUS SYSTEM: No focal deficits, tone is normal in all 4 extremities. EXTREMITIES: Arterial line secured in place. Prevena wound VAC to the left groin. Dressing to the inner left lower extremity intact. Doppler pulses on the left posterior tibial. Peripheral pulses are intact. - Labs CBC & Chem 7: 05/02/24 05:00 05/02/24 05:00 Labs: Abnormal Lab Results - Last 24 Hours (Table) 05/01/24 05/01/24 05/02/24 Range/Units 11:38 20:31 05:00 WBC 14.4 H (3.8-10.6) k/uL RDW 15.6 H (11.5-15.5) % Plt Count 86 L (150-450) k/uL Neutrophils # 11.2 H (1.3-7.7) k/uL Carbon Dioxide (22-30) mmol/L BUN (9-20) mg/dL Glucose (74-99) mg/dL POC Glucose (mg/dL) 134 H 125 H (70-110) mg/dL 05/02/24 05/02/24 Range/Units 05:00 06:29 WBC (3.8-10.6) k/uL RDW (11.5-15.5) % Plt Count (150-450) k/uL Neutrophils # (1.3-7.7) k/uL Carbon Dioxide 32 H (22-30) mmol/L BUN 21 H (9-20) mg/dL Glucose 140 H (74-99) mg/dL POC Glucose (mg/dL) 114 H (70-110) mg/dL Assessment and Plan Assessment: Critical left lower limb ischemia and chronic wounds. Status post left femoral artery endarterectomy and patch angioplasty, left femoral tibial bypass with greater saphenous vein graft, selective angiogram of the left lower extremity second-order, transluminal balloon angioplasty of the greater saphenous vein bypass and distal anastomosis. Post operative day #2 Mechanical ventilator management and extubated 05/01/2024 History of oxygen dependent chronic obstructive pulmonary disease History of chronic tobacco dependence of 47 years at 5 packs/day History of 1.6 cm right upper lobe pulmonary nodule with a max SUV of 0.9 suggesting granulomatous disease. Being followed in the outpatient setting History of chronic back pain with poor mobility and previous surgery Diabetes mellitus, type II Hypertension Hyperlipidemia Plan: The patient was seen and evaluated Chest x-ray, labs, and medications reviewed Stable and on 8 L high flow nasal cannula Titrate down the FiO2 as tolerated Continued DuoNeb inhalations, Symbicort Transfer out of the ICU today We will continue to follow I have personally seen and examined the patient, performed the documentation and the assessment and plan as written. Number of minutes spent on the visit: 10.
--- NOTE | 2024-05-02 11:00 | P.PN ---
Subjective Progress Note Date: 05/02/24 Patient is postoperative day #2 from left femoral to below-knee bypass with saphenous vein and balloon angioplasty of the stenotic areas of the vein. He states he is more feeling in his foot. No complaints otherwise. Objective - Vital Signs Vital signs: Vital Signs Temp 97.8 F 05/02/24 08:00 Pulse 82 05/02/24 09:00 Resp 13 05/02/24 09:00 BP 123/107 05/01/24 16:00 Pulse Ox 96 05/02/24 09:00 FiO2 60 05/01/24 08:00 Intake & Output 05/01/24 05/02/24 05/02/24 18:59 06:59 18:59 Intake Total 956.857 8003 26 Output Total 3235 1610 250 Balance -2884.133 -357 -224 Weight 94.3 kg Intake: IV 296 253 26 .9 a line 36 33 6 Lactated Ringers 1,000 ml 260 220 20 @ 20 mls/hr IV .Q24H [facility] Rx#:[id number] Intake, IV Titration 54.867 Amount propofoL 1,000 mg In 54.867 Empty Bag 1 bag @ 15 MCG/ KG/MIN 8.573 mls/hr IV . [id number] [facility] Rx#:[id number] Oral 1000 Output: Urine 3235 1610 250 Other: Voiding Method Indwelling Catheter Indwelling Catheter Indwelling Catheter ABP, PAP, CO, CI - Last Documented Arterial Blood Pressure 123/53 - Exam General is a pleasant cooperative male in no acute distress. Heart appears regular at this time. Lungs are clear, on nasal cannula. Left lower extremity dressings clean and dry. Biphasic PT signal on the left. Motor sensor intact bilaterally. Mild edema left lower extremities. - Labs CBC & Chem 7: 05/02/24 05:00 05/02/24 05:00 Labs: Abnormal Lab Results - Last 24 Hours (Table) 05/01/24 05/01/24 05/02/24 Range/Units 11:38 20:31 05:00 WBC 14.4 H (3.8-10.6) k/uL RDW 15.6 H (11.5-15.5) % Plt Count 86 L (150-450) k/uL Neutrophils # 11.2 H (1.3-7.7) k/uL Carbon Dioxide (22-30) mmol/L BUN (9-20) mg/dL Glucose (74-99) mg/dL POC Glucose (mg/dL) 134 H 125 H (70-110) mg/dL 05/02/24 05/02/24 Range/Units 05:00 06:29 WBC (3.8-10.6) k/uL RDW (11.5-15.5) % Plt Count (150-450) k/uL Neutrophils # (1.3-7.7) k/uL Carbon Dioxide 32 H (22-30) mmol/L BUN 21 H (9-20) mg/dL Glucose 140 H (74-99) mg/dL POC Glucose (mg/dL) 114 H (70-110) mg/dL Assessment and Plan Assessment: Postoperative day 2 left in situ saphenous vein bypass angioplasty Critical limb ischemia left lower extremity 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 Plan: Overall doing well. Continue medical management and improvement. Increase activity, DC Diehl catheter. PT OT evaluation. Advance diet as tolerated. Transfer out of ICU.
[2024-05-02] MEDS: IPRATROPIUM-ALBUTEROL 3 ML NEB INHALATION SCH (11:07)
[2024-05-02 11:17] LABS: Glucose,Whole Blood 166 mg/dL (70-110)
--- NOTE | 2024-05-02 12:23 | P.PN ---
Subjective Progress Note Date: 05/02/24 68 year old M with PMH COPD on 4-5L home O2, RUL pulmonary nodule, DM, HLD presents to [facility] for elective surgery. He has a history of LLE critical limb ischemia, underwent left femoral tibial bypass with insitu GSV graft, left femoral artery endarterectomy and patch angioplasty, angiogram of the LLE, ballo on angioplasty of the GSV bypass with distal anastomosis with Dr. Archibald on 04/30. He was successfully extubated on 05/01. [facility] consulted for medical management of this patient. 05/01 Patient currently reports well controlled pain in his LLE. He reports feeling hungry. He is pleasantly confused. Currently on HFNC 7L. CBC and BMP significant for WBC 13.1, Plt 96, Na 135, Cl 108, BUN 25, glu 193. Mag 2.0. 05/02 Patient was seen and examined. Slow to respond but answers questions appropriately. Pulled at his Diehl last night now with hematuria. CBC and BMP significant for WBC 14.4, Plt 86, bicarb 32, BUN 21, glu 140. POC glucose 97-153 over the past 24H. General: non toxic, no distress, appears at stated age Derm: warm, dry Head: atraumatic, normocephalic, symmetric Eyes: EOMI, no lid lag, anicteric sclera Mouth: no lip lesion, mucus membranes moist Cardiovascular: Normal S1 S2. NO murmurs, rubs or gallops Lungs: Decreased breath sounds bilaterally, no accessory muscle use Ext: LLE medial dressing c/d/i Neuro: no focal neuro deficits Psych: Alert, oriented, appropriate affect + Diehl with bloody urine in the Diehl bag Based on my assessment of this patient, this patient meets a high complexity level of care. Acute on chronic hypoxic respiratory failure with history of COPD: Post extubation. Attempt to wean O2 to baseline 4-5L. Albuterol neb Q6H PRN SOB, DuoNeb BID scheduled. Symbicort 2 INH BID. Pulmonary on board. Hematuria: Likely traumatic from Diehl. Vascular recommends DC Diehl. Monitor for bleeding given thrombocytopenia and Xarelto use. Leukocytosis: Likely reactive with no signs of active infection. Monitor fever profile. Thrombocytopenia: As low as 91 on 12/2023. Related to Xarelto? Monitor for signs of bleeding. Outpatient Hematology. Diabetes Mellitus: A1c 9.3 12/2023. ISS. Accuchecks ACHS. Hypoglycemic precautions. LLE critical limb ischemia status post left femoral tibial bypass with insitu GSV graft, left femoral artery endarterectomy and patch angioplasty, angiogram of the LLE, balloon angioplasty of the GSV bypass with distal anastomosis with Dr. Archibald on 04/30 CODE STATUS: FULL CODE DVT Prophylaxis: Xarelto GI Prophylaxis: Protonix IV Designated medical POA if patient is not able to make medical decisions for themselves: I have reviewed the following wedding consultant notes: Vascular, Pulmonary. I have reviewed the results of the following tests: CBC, BMP, POC glucose. I have ordered the following tests: I have discussed the care of this patient with the following independent historian: EMELIA. I have independently interpreted the following test below: I have discussed the management of this patient with the following physician: Objective - Vital Signs Vital signs: Vital Signs Temp 97.6 F 05/02/24 04:00 Pulse 85 05/02/24 06:00 Resp 14 05/02/24 06:00 BP 123/107 05/01/24 16:00 Pulse Ox 91 L 05/02/24 06:00 FiO2 60 05/01/24 08:00 Intake & Output 05/01/24 05/02/24 05/02/24 18:59 06:59 18:59 Intake Total 394.385 7868 Output Total 3235 1610 Balance -2884.133 -357 Weight 94.3 kg Intake: IV 296 253 .9 a line 36 33 Lactated Ringers 1,000 ml 260 220 @ 20 mls/hr IV .Q24H [facility] Rx#:[id number] Intake, IV Titration 54.867 Amount propofoL 1,000 mg In 54.867 Empty Bag 1 bag @ 15 MCG/ KG/MIN 8.573 mls/hr IV . [id number] [facility] Rx#:[id number] Oral 1000 Output: Urine 3235 1610 Other: Voiding Method Indwelling Catheter Indwelling Catheter ABP, PAP, CO, CI - Last Documented Arterial Blood Pressure 106/52 - Labs CBC & Chem 7: 05/02/24 05:00 05/02/24 05:00 Labs: Abnormal Lab Results - Last 24 Hours (Table) 08/31/24 08/31/24 09/01/24 Range/Units 11:38 20:31 05:00 WBC 14.4 H (3.8-10.6) k/uL RDW 15.6 H (11.5-15.5) % Plt Count 86 L (150-450) k/uL Neutrophils # 11.2 H (1.3-7.7) k/uL Carbon Dioxide (22-30) mmol/L BUN (9-20) mg/dL Glucose (74-99) mg/dL POC Glucose (mg/dL) 134 H 125 H (70-110) mg/dL 05/02/24 05/02/24 Range/Units 05:00 06:29 WBC (3.8-10.6) k/uL RDW (11.5-15.5) % Plt Count (150-450) k/uL Neutrophils # (1.3-7.7) k/uL Carbon Dioxide 32 H (22-30) mmol/L BUN 21 H (9-20) mg/dL Glucose 140 H (74-99) mg/dL POC Glucose (mg/dL) 114 H (70-110) mg/dL
[2024-05-02 16:20] LABS: Glucose,Whole Blood 163 mg/dL (70-110)
[2024-05-02] MEDS: ALBUTEROL NEBULIZED 2.5 MG/3 ML INHALATION PRN (18:27)
[2024-05-02 20:37] LABS: Glucose,Whole Blood 155 mg/dL (70-110)
[2024-05-03 06:01] LABS: Basophils % (A) 0 %; Eosinophils # (A) 0.1 k/uL (0-0.7); Eosinophils % (A) 1 %; HCT 44.5 % (39.0-53.0); HGB 14.3 gm/dL (13.0-17.5); Hypochromasia Slight; Lymphocytes # (A) 1.6 k/uL (1.0-4.8); Lymphocytes % (A) 12 %; MCH 29.1 pg (25.0-35.0); MCV 90.9 fL (80.0-100.0); Mean Platelet Volume 11.3; Monocytes % (A) 7 %; Neutrophils # (A) 10.6 k/uL (1.3-7.7); Neutrophils % (A) 79 %; RBC 4.89 m/uL (4.30-5.90); RDW 15.7 % (11.5-15.5); WBC 13.5 k/uL (3.8-10.6)
[2024-05-03 06:03] LABS: Platelet Count 79 k/uL (150-450)
[2024-05-03 06:26] LABS: African American GFR (CKD) >90 (>60 ml/min/1.73 sqM); Anion Gap 5 mmol/L; Blood Urea Nitrogen 21 mg/dL (9-20); Calcium 8.8 mg/dL (8.4-10.2); Carbon Dioxide 29 mmol/L (22-30); Chloride 103 mmol/L (98-107); Glucose 145 mg/dL (74-99); Non-African American GFR(CKD) 88 (>60 ml/min/1.73 sqM); Potassium 4.2 mmol/L (3.5-5.1); Sodium 137 mmol/L (137-145)
[2024-05-03 06:59] LABS: Glucose,Whole Blood 143 mg/dL (70-110)
--- NOTE | 2024-05-03 09:24 | P.PN ---
Subjective Progress Note Date: 05/03/24 This is a 68-year-old male patient with a known history of oxygen dependent chronic obstructive pulmonary disease, diabetes mellitus, hyperlipidemia, hypertension, right upper lobe 16 mm pulmonary nodule with a max SUV of 0.9 suggesting granulomatous disease. He was brought in to the hospital yesterday for an elective surgery regarding his left lower limb ischemia. He did undergo a left angioplasty, left femoral tibial bypass with greater saphenous vein [place] graft, selective angiogram of the left lower extremity and transluminal balloon angioplasty of the greater saphenous vein bypass and distal anastomosis. The surgery lasted several hours. He was returned to the intensive care unit intubated on the mechanical ventilator. He is seen today in consultation in the ICU. He remains intubated on the ventilator and assist- control mode at a rate of 24, tidal volume 500, FiO2 60% and a PEEP of 5. Morning blood gases revealed a PaO2 of 91, pCO2 46 and a pH of 7.34. He is sedated on propofol at 40 mcg/kg/min. He has lactated Ringer's at 20 mL/h. Chest X no acute pulmonary process. Nasogastric tube secured in place. White count 13.1. Hemoglobin 15.2. Platelets 96,000. Sodium 135. Potassium 4.5. Bicarb 23. BUN 25. Creatinine 1.11. Glucose 193. He is on DuoNeb inhalations, Symbicort. The patient is seen today May 03, 2024 in follow-up in the intensive care unit. He is postoperative day #3. He is currently sitting up in bed. Awake and alert in no acute distress. He is maintaining O2 saturations in the 90s on 12 L high flow nasal cannula. He is not receiving any fluids. He does have a 47-year history of nearly 5 packs/day of smoking. He states he quit years ago. He is continued on DuoNeb inhalations, Symbicort. Anticoagulated with Xarelto. Remains on oral diuretics. Chest x-ray shows no acute pulmonary process process. There is continued noted 1.6 cm nodule in the right upper lobe. Evidence of cardiomegaly. White count 13.5. Hemoglobin 14.3. Platelets 79,000. Sodium 137. Potassium 4.2. Creatinine 0.86. Bicarb 29. BUN 21. Objective - Vital Signs Vital signs: Vital Signs Temp 97.4 F L 05/03/24 08:00 Pulse 75 05/03/24 08:24 Resp 20 05/03/24 08:00 BP 98/49 05/03/24 08:00 Pulse Ox 92 L 05/03/24 08:12 FiO2 60 05/01/24 08:00 Intake & Output 05/02/24 05/03/24 05/03/24 18:59 06:59 18:59 Intake Total 26 1080 Output Total 750 700 Balance -724 380 Intake: IV 26 .9 a line 6 Lactated Ringers 1,000 ml 20 @ 20 mls/hr IV .Q24H [facility] Rx#:[id number] Oral 1080 Output: Urine 750 700 Other: Voiding Method Indwelling Catheter Urinal ABP, PAP, CO, CI - Last Documented Arterial Blood Pressure 123/53 - Exam GENERAL EXAM:, Alert awake 68-year-old male patient, on 12 liters high flow nasal cannula, in no acute distress HEAD: Normocephalic. EYES: Normal reaction of pupils, equal size. NOSE: Clear with pink turbinates. CHEST: No chest wall deformity. LUNGS: Equal air entry with no crackles, wheeze, rhonchi or dullness. CVS: S1 and S2 normal with no audible murmur, regular rhythm. ABDOMEN: No hepatosplenomegaly, normal bowel sounds, no guarding or rigidity. SPINE: No scoliosis or deformity SKIN: No rashes CENTRAL NERVOUS SYSTEM: No focal deficits, tone is normal in all 4 extremities. EXTREMITIES: Arterial line secured in place. Prevena wound VAC to the left groin. Dressing to the inner left lower extremity intact. - Labs CBC & Chem 7: 05/03/24 05:27 05/03/24 05:27 Labs: Abnormal Lab Results - Last 24 Hours (Table) 05/02/24 05/02/24 05/02/24 Range/Units 11:16 16:18 20:35 WBC (3.8-10.6) k/uL RDW (11.5-15.5) % Plt Count (150-450) k/uL Neutrophils # (1.3-7.7) k/uL BUN (9-20) mg/dL Glucose (74-99) mg/dL POC Glucose (mg/dL) 166 H 163 H 155 H (70-110) mg/dL 05/03/24 05/03/24 05/03/24 Range/Units 05:27 05:27 06:58 WBC 13.5 H (3.8-10.6) k/uL RDW 15.7 H (11.5-15.5) % Plt Count 79 L (150-450) k/uL Neutrophils # 10.6 H (1.3-7.7) k/uL BUN 21 H (9-20) mg/dL Glucose 145 H (74-99) mg/dL POC Glucose (mg/dL) 143 H (70-110) mg/dL Assessment and Plan Plan: Critical left lower limb ischemia and chronic wounds. Status post left femoral artery endarterectomy and patch angioplasty, left femoral tibial bypass with g reater saphenous vein graft, selective angiogram of the left lower extremity second-order, transluminal balloon angioplasty of the greater saphenous vein bypass and distal anastomosis. Post operative day #3 Mechanical ventilator management and extubated 05/01/2024 History of oxygen dependent chronic obstructive pulmonary disease History of chronic tobacco dependence of 47 years at 5 packs/day History of 1.6 cm right upper lobe pulmonary nodule with a max SUV of 0.9 suggesting granulomatous disease. Being followed in the outpatient setting History of chronic back pain with poor mobility and previous surgery Diabetes mellitus, type II Hypertension Hyperlipidemia Plan: The patient was seen and evaluated Chest x-ray, labs, and medications reviewed Stable and on 12 L high flow nasal cannula Titrate down the FiO2 as tolerated, maintain target O2 sat at 88-92%. Continued DuoNeb inhalations, Symbicort Transfer out of the ICU today, we will continue to follow I have personally seen and examined the patient, performed the documentation and the assessment and plan as written. Number of minutes spent on the visit: 10. Time with Patient: Less than 30
[2024-05-03 12:46] LABS: Glucose,Whole Blood 206 mg/dL (70-110)
--- NOTE | 2024-05-03 13:40 | P.PN ---
Subjective Progress Note Date: 05/03/24 Patient is postoperative day #3 from left femoral to below-knee bypass with saphenous vein and balloon angioplasty of the stenotic areas of the vein. Doing well overall, no complaints. Downgraded from ICU awaiting bed Objective - Vital Signs Vital signs: Vital Signs Temp 97.4 F L 05/03/24 08:00 Pulse 79 05/03/24 12:15 Resp 20 05/03/24 08:00 BP 98/49 05/03/24 08:00 Pulse Ox 92 L 05/03/24 08:12 FiO2 60 05/01/24 08:00 Intake & Output 05/02/24 05/03/24 05/03/24 18:59 06:59 18:59 Intake Total 26 1080 Output Total 750 700 Balance -724 380 Intake: IV 26 .9 a line 6 Lactated Ringers 1,000 ml 20 @ 20 mls/hr IV .Q24H [facility] Rx#:[id number] Oral 1080 Output: Urine 750 700 Other: Voiding Method Indwelling Catheter Urinal Urinal ABP, PAP, CO, CI - Last Documented Arterial Blood Pressure 123/53 - Exam General is a pleasant cooperative male in no acute distress. Sitting in the recliner heart appears regular at this time. Lungs are clear, on nasal cannula. Left lower extremity dressings clean and dry. Biphasic PT signal on the left. Motor sensor intact bilaterally. Mild edema left lower extremities. - Labs CBC & Chem 7: 05/03/24 05:27 05/03/24 05:27 Labs: Abnormal Lab Results - Last 24 Hours (Table) 05/02/24 05/02/24 05/03/24 Range/Units 16:18 20:35 05:27 WBC 13.5 H (3.8-10.6) k/uL RDW 15.7 H (11.5-15.5) % Plt Count 79 L (150-450) k/uL Neutrophils # 10.6 H (1.3-7.7) k/uL BUN (9-20) mg/dL Glucose (74-99) mg/dL POC Glucose (mg/dL) 163 H 155 H (70-110) mg/dL 05/03/24 05/03/24 05/03/24 Range/Units 05:27 06:58 12:45 WBC (3.8-10.6) k/uL RDW (11.5-15.5) % Plt Count (150-450) k/uL Neutrophils # (1.3-7.7) k/uL BUN 21 H (9-20) mg/dL Glucose 145 H (74-99) mg/dL POC Glucose (mg/dL) 143 H 206 H (70-110) mg/dL Assessment and Plan Assessment: Postoperative day 3 left in situ saphenous vein bypass with angioplasty Critical limb ischemia left lower extremity 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 Plan: Overall doing well. Continue medical management and improvement. Increase activity, PT OT evaluation. Discussed need for increasing activity for potential discharge. Continue DC planning. Await pulmonary improvement advance diet as tolerated. Hopeful for discharge in next 1 to 2 days, awaiting recommendations for placement versus home with PT
--- NOTE | 2024-05-03 15:25 | P.PN ---
Subjective Progress Note Date: 05/03/24 68 year old M with PMH COPD on 4-5L home O2, RUL pulmonary nodule, DM, HLD presents [facility] for elective surgery. He has a history of LLE critical limb ischemia, underwent left femoral tibial bypass with insitu GSV graft, left femoral artery endarterectomy and patch angioplasty, angiogram of the LLE, ballo on angioplasty of the GSV bypass with distal anastomosis with Dr. Archibald on 04/30. He was successfully extubated on 05/01. [facility] consulted for medical management of this patient. 05/01 Patient currently reports well controlled pain in his LLE. He reports feeling hungry. He is pleasantly confused. Currently on HFNC 7L. CBC and BMP significant for WBC 13.1, Plt 96, Na 135, Cl 108, BUN 25, glu 193. Mag 2.0. 05/02 Patient was seen and examined. Slow to respond but answers questions appropriately. Pulled at his Diehl last night now with hematuria. CBC and BMP significant for WBC 14.4, Plt 86, bicarb 32, BUN 21, glu 140. POC glucose 97-153 over the past 24H. 05/03 Patient was seen and examined. RN reports patient required straight cath twice for retention of 600 cc overnight. Currently on 12L HFNC saturating 91%. CXR done 05/02 shows no acute process, right upper lobe nodule and cardiomegaly. CBC and BMP significant for WBC 13.5, Plt 79, BUN 21, glu 145. POC glucose 114- 166 over the past 24H. General: non toxic, no distress, appears at stated age Derm: warm, dry Head: atraumatic, normocephalic, symmetric Eyes: EOMI, no lid lag, anicteric sclera Mouth: no lip lesion, mucus membranes moist Cardiovascular: Normal S1 S2. NO murmurs, rubs or gallops Lungs: Decreased breath sounds bilaterally, no accessory muscle use Ext: LLE medial dressing c/d/i Neuro: no focal neuro deficits Psych: Alert, oriented, appropriate affect Based on my assessment of this patient, this patient meets a high complexity level of care. Acute on chronic hypoxic respiratory failure with history of COPD: Post extubation. Attempt to wean O2 to baseline 4-5L. Albuterol neb Q6H PRN SOB, DuoNeb BID scheduled. Symbicort 2 INH BID. Pulmonary on board. Urinary retention: Bladder scan PRN. Re-insert Diehl if continuing to retain. Flomax 0.4 mg PO QD. Leukocytosis: Likely reactive with no signs of active infection. Monitor fever profile. Thrombocytopenia: As low as 91 on 12/2023. Related to Xarelto? Monitor for signs of bleeding. Outpatient Hematology. Diabetes Mellitus: A1c 9.3 12/2023. ISS. Accuchecks ACHS. Hypoglycemic precautions. Pulmonary nodule: Followed by Dr. Carroll in the outpatient setting. LLE critical limb ischemia status post left femoral tibial bypass with insitu GSV graft, left femoral artery endarterectomy and patch angioplasty, angiogram of the LLE, balloon angioplasty of the GSV bypass with distal anastomosis with Dr. Archibald on 04/30 CODE STATUS: FULL CODE DVT Prophylaxis: Xarelto GI Prophylaxis: Protonix IV Designated medical POA if patient is not able to make medical decisions for themselves: I have reviewed the following corporate consultant notes: Vascular, Pulmonary. I have reviewed the results of the following tests: CBC, BMP, POC glucose. I have ordered the following tests: I have discussed the care of this patient with the following independent historian: EMELIA. I have independently interpreted the following test below: CXR. I have discussed the management of this patient with the following physician: Objective - Vital Signs Vital signs: Vital Signs Temp 98.0 F 05/03/24 02:00 Pulse 82 05/03/24 02:00 Resp 18 05/03/24 02:00 BP 105/61 05/03/24 02:00 Pulse Ox 91 L 05/03/24 02:00 FiO2 60 05/01/24 08:00 Intake & Output 05/02/24 05/03/24 05/03/24 18:59 06:59 18:59 Intake Total 26 1080 Output Total 750 700 Balance -724 380 Intake: IV 26 .9 a line 6 Lactated Ringers 1,000 ml 20 @ 20 mls/hr IV .Q24H MAT Rx#:[id number] Oral 1080 Output: Urine 750 700 Other: Voiding Method Indwelling Catheter Urinal ABP, PAP, CO, CI - Last Documented Arterial Blood Pressure 123/53 - Labs CBC & Chem 7: 05/03/24 05:27 05/03/24 05:27 Labs: Abnormal Lab Results - Last 24 Hours (Table) 05/02/24 05/02/24 05/02/24 Range/Units 11:16 16:18 20:35 WBC (3.8-10.6) k/uL RDW (11.5-15.5) % Plt Count (150-450) k/uL Neutrophils # (1.3-7.7) k/uL BUN (9-20) mg/dL Glucose (74-99) mg/dL POC Glucose (mg/dL) 166 H 163 H 155 H (70-110) mg/dL 05/03/24 05/03/24 05/03/24 Range/Units 05:27 05:27 06:58 WBC 13.5 H (3.8-10.6) k/uL RDW 15.7 H (11.5-15.5) % Plt Count 79 L (150-450) k/uL Neutrophils # 10.6 H (1.3-7.7) k/uL BUN 21 H (9-20) mg/dL Glucose 145 H (74-99) mg/dL POC Glucose (mg/dL) 143 H (70-110) mg/dL
[2024-05-03 17:01] LABS: Glucose,Whole Blood 152 mg/dL (70-110)
[2024-05-03] MEDS: TAMSULOSIN 0.4 MG CAP.ER.24H PO SCH (17:27)
[2024-05-03 20:41] LABS: Glucose,Whole Blood 225 mg/dL (70-110)
[2024-05-04 07:15] LABS: Glucose,Whole Blood 164 mg/dL (70-110)
[2024-05-04 08:58] LABS: Glucose,Whole Blood 212 mg/dL (70-110)
--- NOTE | 2024-05-04 11:09 | P.PN ---
Subjective Progress Note Date: 05/04/24 Hospital course 68 year old M with PMH COPD on 4-5L home O2, RUL pulmonary nodule, DM, HLD presents to [facility] for elective surgery. He has a history of LLE critical limb ischemia, underwent left femoral tibial bypass with insitu GSV graft, left femoral artery endarterectomy and patch angioplasty, angiogram of the LLE, balloon angioplasty of the GSV bypass with distal anastomosis with Dr. Archibald on 04/30. He was successfully extubated on 05/01. [facility] consulted for medical management of this patient. Subjective Patient seen today. He is denying any acute complaints. He is wondering when he can go home. Physical exam General: non toxic, no distress, appears at stated age Derm: warm, dry Head: atraumatic, normocephalic, symmetric Eyes: EOMI, no lid lag, anicteric sclera Mouth: no lip lesion, mucus membranes moist Cardiovascular: Normal S1 S2. NO murmurs, rubs or gallops Lungs: Decreased breath sounds bilaterally, no accessory muscle use Ext: LLE medial dressing c/d/i Neuro: no focal neuro deficits Psych: Alert, oriented, appropriate affect Assessment and plan Acute on chronic hypoxic respiratory failure with history of COPD: Post extubation. Attempt to wean O2 to baseline 4-5L. Albuterol neb Q6H PRN SOB, DuoNeb BID scheduled. Symbicort 2 INH BID. Pulmonary on board. Urinary retention: Bladder scan PRN. Re-insert Diehl if continuing to retain. Flomax 0.4 mg PO QD. patient currently on 7 L nasal cannula. Leukocytosis: Likely reactive with no signs of active infection. Monitor fever profile. Thrombocytopenia: No signs of bleeding. Stable. Follow-up outpatient with PCP for CBC. Diabetes Mellitus: A1c 9.3 12/2023. ISS. Accuchecks ACHS. Hypoglycemic precautions. Resume home meds on discharge Pulmonary nodule: Followed by Dr. Carroll in the outpatient setting. LLE critical limb ischemia status post left femoral tibial bypass with insitu GSV graft, left femoral artery endarterectomy and patch angioplasty, angiogram of the LLE, balloon angioplasty of the GSV bypass with distal anastomosis with Dr. Archibald on 04/30 CODE STATUS: FULL CODE DVT Prophylaxis: Xarelto GI Prophylaxis: Protonix IV Objective - Vital Signs Vital signs: Vital Signs Temp 97.4 F L 05/03/24 20:00 Pulse 104 H 05/04/24 08:14 Resp 14 05/04/24 02:00 BP 108/68 05/04/24 02:00 Pulse Ox 94 L 05/04/24 08:06 FiO2 60 05/01/24 08:00 Intake & Output 05/03/24 05/04/24 05/04/24 18:59 06:59 18:59 Intake Total 1620 Output Total 860 1450 Balance -860 170 Intake: Oral 1620 Output: Urine 0 1450 Post Void Residual 860 Other: Voiding Method Urinal Urinal # Voids 0 ABP, PAP, CO, CI - Last Documented Arterial Blood Pressure 123/53 - Labs CBC & Chem 7: 05/03/24 05:27 05/03/24 05:27 Labs: Abnormal Lab Results - Last 24 Hours (Table) 05/03/24 05/03/24 05/03/24 Range/Units 12:45 16:59 20:39 POC Glucose (mg/dL) 206 H 152 H 225 H (70-110) mg/dL 05/04/24 05/04/24 Range/Units 07:14 08:57 POC Glucose (mg/dL) 164 H 212 H (70-110) mg/dL
--- NOTE | 2024-05-04 11:28 | P.PN ---
Subjective Progress Note Date: 05/04/24 Principal diagnosis: Left femoral to below-knee bypass Patient is seen and examined today as a follow-up. He is in the ICU has a overflow for 3 S. He is postop day #4 for left femoral to below-knee bypass with saphenous vein and balloon angioplasty of the stenotic areas of the vein. Today he is overall doing well. No complaints. He is requiring oxygen supplementation at this time but states he uses home oxygen as well. He is awaiting evaluation from PT and OT. He has been up into the chair yesterday and is getting up at this time. States pain to left lower extremity improved. Prevena dressing in place. Objective - Vital Signs Vital signs: Vital Signs Temp 97.4 F L 05/03/24 20:00 Pulse 104 H 05/04/24 08:14 Resp 14 05/04/24 02:00 BP 108/68 05/04/24 02:00 Pulse Ox 94 L 05/04/24 08:06 FiO2 60 05/01/24 08:00 Intake & Output 05/03/24 05/04/24 05/04/24 18:59 06:59 18:59 Intake Total 1620 Output Total 860 1450 Balance -860 170 Intake: Oral 1620 Output: Urine 0 1450 Post Void Residual 860 Other: Voiding Method Urinal Urinal # Voids 0 ABP, PAP, CO, CI - Last Documented Arterial Blood Pressure 123/53 - Exam General appearance: The patient is alert, oriented, appears in no acute distress. HET: Head is normocephalic and atraumatic. Pupils are equal and reactive. Neck: Supple. Heart: Regular. Lungs: Equal expansion, normal respiratory effort. Abdomen: Soft, nontender, nondistended. Extremities: Normal skin color and turgor. Left PT signal present, left lower extremity dressing clean dry and intact. Left groin with Ariane dressing. Neurological: No focal deficits. Strength and sensation are grossly intact. - Labs CBC & Chem 7: 05/03/24 05:27 05/03/24 05:27 Labs: Abnormal Lab Results - Last 24 Hours (Table) 05/03/24 05/03/24 05/03/24 Range/Units 12:45 16:59 20:39 POC Glucose (mg/dL) 206 H 152 H 225 H (70-110) mg/dL 05/04/24 05/04/24 Range/Units 07:14 08:57 POC Glucose (mg/dL) 164 H 212 H (70-110) mg/dL Assessment and Plan Assessment: 1. Postop day #4 left Alba to below the knee in situ saphenous vein bypass with angioplasty 2. Left lower extremity critical limb ischemia 3. 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 Chronic left lower extremity ankle wounds 5. History of oxygen dependent chronic obstructive pulmonary disease 6. History of chronic tobacco dependence of 47 years at 5 packs/day 7. Diabetes melitis type II Plan: 1. Await recommendations from PT and OT for discharge placement 2. Encourage ambulation 3. Encourage incentive spirometer 4. Continue with recommendations from pulmonology 5. Continue with Prevena wound VAC until postop day 7 6. Medical management per primary medical team 7. Anticipate discharge in the next 24 to 48 hours The impression and plan of care has been dictated as directed. I performed a history and examination of this patient, discussed the same with the dictator. I agree with the dictator's note ,documented as a scribe. Any additional findings or plans will be noted.
--- NOTE | 2024-05-04 13:03 | P.PN ---
Subjective Progress Note Date: 05/04/24 This is a 68-year-old male patient with a known history of oxygen dependent chronic obstructive pulmonary disease, diabetes mellitus, hyperlipidemia, hypertension, right upper lobe 16 mm pulmonary nodule with a max SUV of 0.9 suggesting granulomatous disease. He was brought in to the hospital yesterday for an elective surgery regarding his left lower limb ischemia. He did undergo a left angioplasty, left femoral tibial bypass with greater saphenous vein Hammond graft, selective angiogram of the left lower extremity and transluminal balloon angioplasty of the greater saphenous vein bypass and distal anastomosis. On today's evaluation of 05/04/2024, the patient being seen for a follow-up. The patient is postop day #4. The patient underwent an extensive vascular intervention which involved a left femoral angioplasty, left femoral-tibial bypass with greater saphenous vein graft and subsequent transluminal balloon angioplasty of the great saphenous vein bypass and distal anastomosis. The patient's extremities are rather cold yet there is capillary refill and the patient has Doppler pulses in the left lower extremity. He does have chronic vascular wounds in his lower extremities bilaterally. No signs of any active infection. His overall respiratory status is stable. The patient is not having any significant respiratory distress. No cough. No sputum production. No chest tightness. No wheezing.At 8 L with a pulse ox of 94%. He remains on oxygen and the patient is currently on oxygen the most recent chest x-ray from 05/02/2024 showed cardiomegaly and a right upper lobe pulmonary nodule which has been seen on previous CAT scan of the chest suspecting malignancy. Kvng luciaon, the PET scan that was done at that time specifically on 02/08/2024 showed no significant metabolic activity in the right upper lobe pulmonary nodule. Noted the patient's CAT scan also revealed right hilar, paratracheal and subcarinal mediastinal lymphadenopathy. Obviously, there is concern for malignancy. He is known to have advanced COPD and the patient is on oxygen between 4 and 5 L on outpatient basis. Objective - Vital Signs Vital signs: Vital Signs Temp 97.4 F L 05/03/24 20:00 Pulse 104 H 05/04/24 08:14 Resp 14 05/04/24 02:00 BP 108/68 05/04/24 02:00 Pulse Ox 94 L 05/04/24 08:06 FiO2 60 08/31/24 08:00 Intake & Output 05/03/24 05/04/24 05/04/24 18:59 06:59 18:59 Intake Total 1620 Output Total 860 1450 Balance -860 170 Intake: Oral 1620 Output: Urine 0 1450 Post Void Residual 860 Other: Voiding Method Urinal Urinal # Voids 0 ABP, PAP, CO, CI - Last Documented Arterial Blood Pressure 123/53 - Exam GENERAL EXAM:, Alert awake 68-year-old male patient, 8 liters high flow nasal cannula, in no apparent distress. HEAD: Normocephalic. EYES: Normal reaction of pupils, equal size. NOSE: Clear with pink turbinates. THROAT: Oral endotracheal and gastric tube secured in place. No erythema or exudates. NECK: No masses, no JVD. CHEST: No chest wall deformity. LUNGS: Equal air entry with no crackles, wheeze, rhonchi or dullness. CVS: S1 and S2 normal with no audible murmur, regular rhythm. ABDOMEN: No hepatosplenomegaly, normal bowel sounds, no guarding or rigidity. SPINE: No scoliosis or deformity SKIN: No rashes CENTRAL NERVOUS SYSTEM: No focal deficits, tone is normal in all 4 extremities. EXTREMITIES: Arterial line secured in place. Prevena wound VAC to the left groin. Dressing to the inner left lower extremity intact. Doppler pulses on the left posterior tibial. Peripheral pulses are intact. Noted the pulses are diminished and there is a Doppler signal. Wounds are unchanged. - Labs CBC & Chem 7: 05/03/24 05:27 05/03/24 05:27 Labs: Abnormal Lab Results - Last 24 Hours (Table) 05/03/24 05/03/24 05/03/24 Range/Units 12:45 16:59 20:39 POC Glucose (mg/dL) 206 H 152 H 225 H (70-110) mg/dL 05/04/24 05/04/24 Range/Units 07:14 08:57 POC Glucose (mg/dL) 164 H 212 H (70-110) mg/dL Assessment and Plan Plan: Critical left lower limb ischemia and chronic wounds. Status post left femoral artery endarterectomy and patch angioplasty, left femoral tibial bypass with greater saphenous vein graft, selective angiogram of the left lower extremity s econd-order, transluminal balloon angioplasty of the greater saphenous vein bypass and distal anastomosis. Post operative day #4 Acute hypoxic respiratory failure on top of chronic hypoxic darius failure. The patient was placed on mechanical ventilator postop, extubated on 05/01/2024 and currently is on 8 L of O2 nasal cannula. Acute on chronic hypoxic respiratory failure, currently on 8 L of oxygen by nasal cannula, baseline 02 is 5 liters History of oxygen dependent chronic obstructive pulmonary disease History of chronic tobacco dependence of 47 years at 5 packs/day History of 1.6 cm right upper lobe pulmonary nodule with a max SUV of 0.9 suggesting granulomatous disease. Being followed in the outpatient setting. The patient also has bilateral mediastinal lymphadenopathy largest in the subcarinal area. Obviously, the possibility of malignancy cannot be completely ruled out. History of chronic back pain with poor mobility and previous surgery Diabetes mellitus, type II Hypertension Hyperlipidemia Plan: Provide the patient incentive spirometer Stable and on 8 L high flow nasal cannula, gradual wean down FiO2 to maintain saturation above 90% Titrate down the FiO2 as tolerated Continued DuoNeb inhalations, Symbicort Vascular surgery to follow-up on the case Workup of the pulmonary nodule on outpatient basis. May benefit from a biopsy and an EBUS Anticoagulation by [facility] per vascular surgery recommendations We will continue to follow
[2024-05-04 16:57] LABS: Glucose,Whole Blood 176 mg/dL (70-110)
[2024-05-04 19:55] LABS: Glucose,Whole Blood 220 mg/dL (70-110)
[2024-05-05 06:31] LABS: Glucose,Whole Blood 191 mg/dL (70-110)
[2024-05-05] MEDS: PANTOPRAZOLE 40 MG TABLET PO SCH (06:45)
--- NOTE | 2024-05-05 10:30 | P.PN ---
Subjective Progress Note Date: 05/05/24 Hospital course 68 year old M with PMH COPD on 4-5L home O2, RUL pulmonary nodule, DM, HLD presents to [facility] for elective surgery. He has a history of LLE critical limb ischemia, underwent left femoral tibial bypass with insitu GSV graft, left femoral artery endarterectomy and patch angioplasty, angiogram of the LLE, balloon angioplasty of the GSV bypass with distal anastomosis with Dr. Archibald on 04/30. He was successfully extubated on 05/01. [facility] consulted for medical management of this patient. Subjective Patient seen this morning. He is still currently on 7 L nasal cannula. When I walked in the room patient did not have his nasal cannula in his nostrils and he was actually satting around 95%. I did school counsellor the patient and told him that he needs to make sure that he is wearing the nasal cannula on properly. Patient states that he worked with physical therapy who told him he needs to go to rehab. Patient states that he is amenable to going to rehab. Physical exam General: non toxic, no distress, appears at stated age Derm: warm, dry Head: atraumatic, normocephalic, symmetric Eyes: EOMI, no lid lag, anicteric sclera Mouth: no lip lesion, mucus membranes moist Cardiovascular: Normal S1 S2. NO murmurs, rubs or gallops Lungs: Decreased breath sounds bilaterally, no accessory muscle use Ext: LLE medial dressing c/d/i Neuro: no focal neuro deficits Psych: Alert, oriented, appropriate affect Assessment and plan Acute on chronic hypoxic respiratory failure with history of COPD: Post extubation. Attempt to wean O2 to baseline 4-5L. Albuterol neb Q6H PRN SOB, DuoNeb BID scheduled. Symbicort 2 INH BID. Pulmonary on board. Patient is on 3 to 5 L nasal cannula at home. Patient currently on 7 L and is stable. Urinary retention: Bladder scan PRN. Re-insert Diehl if continuing to retain. Flomax 0.4 mg PO QD. Leukocytosis: Likely reactive with no signs of active infection. Monitor fever profile. Thrombocytopenia: No signs of bleeding. Stable. Follow-up outpatient with PCP for CBC. Diabetes Mellitus: A1c 9.3 12/2023. ISS. Accuchecks ACHS. Hypoglycemic precautions. Resume home meds on discharge Pulmonary nodule: Followed by Dr. Carroll in the outpatient setting. LLE critical limb ischemia status post left femoral tibial bypass with insitu GSV graft, left femoral artery endarterectomy and patch angioplasty, angiogram of the LLE, balloon angioplasty of the GSV bypass with distal anastomosis with Dr. Archibald on 04/30 Physical therapy recommending senior care facility CODE STATUS: FULL CODE DVT Prophylaxis: Xarelto GI Prophylaxis: Protonix IV Objective - Vital Signs Vital signs: Vital Signs Temp 98.2 F 05/05/24 08:00 Pulse 77 05/05/24 08:00 Resp 18 05/05/24 08:00 BP 122/68 05/05/24 08:00 Pulse Ox 93 L 05/05/24 08:00 FiO2 60 05/01/24 08:00 Intake & Output 05/04/24 05/05/24 05/05/24 18:59 06:59 18:59 Output Total 1300 850 Balance -1300 -850 Output: Urine 1300 850 Other: Voiding Method Urinal Urinal ABP, PAP, CO, CI - Last Documented Arterial Blood Pressure 123/53 - Labs CBC & Chem 7: 05/03/24 05:27 05/03/24 05:27 Labs: Abnormal Lab Results - Last 24 Hours (Table) 05/04/24 05/04/24 05/05/24 Range/Units 16:55 19:54 06:30 POC Glucose (mg/dL) 176 H 220 H 191 H (70-110) mg/dL
--- NOTE | 2024-05-05 10:52 | P.PN ---
Subjective Progress Note Date: 05/05/24 Principal diagnosis: Left femoral to below-knee bypass Patient is seen and examined today as a follow-up. He is in the ICU has a overflow for 3 S. He is postop day #5 for left femoral to below-knee bypass with saphenous vein and balloon angioplasty of the stenotic areas of the vein. Today he is overall doing well. No complaints. States he is ready to be discharged. States he prefers to go home. However he was seen by physical therapy yesterday who recommends subacute rehab and patient is agreeable. Patient is awaiting to be seen by case management for discharge placement. He is requiring oxygen supplementation, however uses home O2. Currently on 12 L of high flow cannula with saturation at 93%. States pain to left lower extremity improved. Prevena dressing in place. He has been afebrile. Objective - Vital Signs Vital signs: Vital Signs Temp 98.2 F 05/05/24 08:00 Pulse 77 05/05/24 08:00 Resp 18 05/05/24 08:00 BP 122/68 05/05/24 08:00 Pulse Ox 93 L 05/05/24 08:00 FiO2 60 05/01/24 08:00 Intake & Output 05/04/24 05/05/24 05/05/24 18:59 06:59 18:59 Output Total 1300 850 Balance -1300 -850 Output: Urine 1300 850 Other: Voiding Method Urinal Urinal ABP, PAP, CO, CI - Last Documented Arterial Blood Pressure 123/53 - Exam General appearance: The patient is alert, oriented, appears in no acute distress. HET: Head is normocephalic and atraumatic. Pupils are equal and reactive. Neck: Supple. Heart: Regular. Lungs: Equal expansion, normal respiratory effort. Abdomen: Soft, nontender, nondistended. Extremities: Normal skin color and turgor. Left PT signal present, left lower extremity dressing clean dry and intact with corrine well-approximated. Left groin with Ariane dressing. Neurological: No focal deficits. Strength and sensation are grossly intact. - Labs CBC & Chem 7: 05/03/24 05:27 05/03/24 05:27 Labs: Abnormal Lab Results - Last 24 Hours (Table) 05/04/24 05/04/24 05/05/24 Range/Units 16:55 19:54 06:30 POC Glucose (mg/dL) 176 H 220 H 191 H (70-110) mg/dL Assessment and Plan Assessment: 1. Postop day #4 left Alba to below the knee in situ saphenous vein bypass with angioplasty 2. Left lower extremity critical limb ischemia 3. 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 Chronic left lower extremity ankle wounds 5. History of oxygen dependent chronic obstructive pulmonary disease 6. History of chronic tobacco dependence of 47 years at 5 packs/day 7. Diabetes melitis type II Plan: 1. Physical therapy recommends subacute rehab. Awaiting authorization from patient's insurance 2. Encourage ambulation 3. Encourage incentive spirometer 4. Continue with recommendations from pulmonology 5. Continue with Prevena wound VAC until postop day 7 6. Medical management per primary medical team 7. Patient is ready for discharge once insurance authorization received. The impression and plan of care has been dictated as directed. Dr. Diehl I performed a history and examination of this patient, discussed the same with the dictator. I agree with the dictator's note ,documented as a scribe. Any additional findings or plans will be noted.
[2024-05-05 11:24] LABS: Glucose,Whole Blood 218 mg/dL (70-110)
[2024-05-05 16:10] LABS: Glucose,Whole Blood 177 mg/dL (70-110)
[2024-05-05 17:37] LABS: Glucose,Whole Blood 139 mg/dL (70-110)
--- NOTE | 2024-05-05 19:35 | P.PN ---
Subjective Progress Note Date: 05/05/24 This is a 68-year-old male patient with a known history of oxygen dependent chronic obstructive pulmonary disease, diabetes mellitus, hyperlipidemia, hypertension, right upper lobe 16 mm pulmonary nodule with a max SUV of 0.9 suggesting granulomatous disease. He was brought in to the hospital yesterday for an elective surgery regarding his left lower limb ischemia. He did undergo a left angioplasty, left femoral tibial bypass with greater saphenous vein [place] graft, selective angiogram of the left lower extremity and transluminal balloon angioplasty of the greater saphenous vein bypass and distal anastomosis. On today's evaluation of 05/04/2024, the patient being seen for a follow-up. The patient is postop day #4. The patient underwent an extensive vascular intervention which involved a left femoral angioplasty, left femoral-tibial bypass with greater saphenous vein graft and subsequent transluminal balloon angioplasty of the great saphenous vein bypass and distal anastomosis. The patient's extremities are rather cold yet there is capillary refill and the patient has Doppler pulses in the left lower extremity. He does have chronic vascular wounds in his lower extremities bilaterally. No signs of any active infection. His overall respiratory status is stable. The patient is not having any significant respiratory distress. No cough. No sputum production. No chest tightness. No wheezing.At 8 L with a pulse ox of 94%. He remains on oxygen and the patient is currently on oxygen the most recent chest x-ray from 05/02/2024 showed cardiomegaly and a right upper lobe pulmonary nodule which has been seen on previous CAT scan of the chest suspecting malignancy. Kvng luciano, the PET scan that was done at that time specifically on 02/08/2024 showed no significant metabolic activity in the right upper lobe pulmonary nodule. Noted the patient's CAT scan also revealed right hilar, paratracheal and subcarinal mediastinal lymphadenopathy. Obviously, there is concern for malignancy. He is known to have advanced COPD and the patient is on oxygen between 4 and 5 L on outpatient basis. On today's evaluation of 05/05/2024, the patient is being seen for a follow-up. The patient is doing well. The oxygenation is being monitored and the oxygen flow is being adjusted accordingly. The patient is currently 6 to 7 L of oxygen by nasal cannula. His baseline oxygen requirements is approximately 5 L. Doing well. No specific complaints. No significant pain in his lower extremities. The patient is status post left femoral tib bypass surgery and patient is postop day #5. Doing well. Adequate pulses lower extremities bilaterally. Vascular surgery is on the case. The wounds of the lower extremities remain unchanged. The patient has appropriate dressing covering the wounds. No new labs are available from today. Awake and alert and communicating. No chest pain. No shortness of breath. No other significant events overnight. Objective - Vital Signs Vital signs: Vital Signs Temp 98.2 F 05/05/24 08:00 Pulse 77 05/05/24 08:00 Resp 18 05/05/24 08:00 BP 122/68 05/05/24 08:00 Pulse Ox 93 L 05/05/24 08:00 FiO2 60 05/01/24 08:00 Intake & Output 05/04/24 05/05/24 05/05/24 18:59 06:59 18:59 Output Total 1300 850 Balance -1300 -850 Output: Urine 1300 850 Other: Voiding Method Urinal Urinal ABP, PAP, CO, CI - Last Documented Arterial Blood Pressure 123/53 - Exam GENERAL EXAM:, Alert awake 68-year-old male patient, 8 liters high flow nasal cannula, in no apparent distress. HEAD: Normocephalic. EYES: Normal reaction of pupils, equal size. NOSE: Clear with pink turbinates. THROAT: Oral endotracheal and gastric tube secured in place. No erythema or exudates. NECK: No masses, no JVD. CHEST: No chest wall deformity. LUNGS: Equal air entry with no crackles, wheeze, rhonchi or dullness. CVS: S1 and S2 normal with no audible murmur, regular rhythm. ABDOMEN: No hepatosplenomegaly, normal bowel sounds, no guarding or rigidity. SPINE: No scoliosis or deformity SKIN: No rashes CENTRAL NERVOUS SYSTEM: No focal deficits, tone is normal in all 4 extremities. EXTREMITIES: Arterial line secured in place. Prevena wound VAC to the left groin. Dressing to the inner left lower extremity intact. Doppler pulses on the left posterior tibial. Peripheral pulses are intact. Noted the pulses are diminished and there is a Doppler signal. Wounds are unchanged. - Labs CBC & Chem 7: 05/03/24 05:27 05/03/24 05:27 Labs: Abnormal Lab Results - Last 24 Hours (Table) 05/04/24 05/04/24 05/04/24 Range/Units 08:57 16:55 19:54 POC Glucose (mg/dL) 212 H 176 H 220 H (70-110) mg/dL 05/05/24 Range/Units 06:30 POC Glucose (mg/dL) 191 H (70-110) mg/dL Assessment and Plan Plan: Critical left lower limb ischemia and chronic wounds. Status post left femoral artery endarterectomy and patch angioplasty, left femoral tibial bypass with greater saphenous vein graft, selective angiogram of the left lower extremity second-order, transluminal balloon angioplasty of the greater saphenous vein bypass and distal anastomosis. Post operative day #5 Acute hypoxic respiratory failure on top of chronic hypoxic darius failure. The patient was placed on mechanical ventilator postop, extubated on 05/01/2024 and currently is on 7 L of O2 nasal cannula. Acute on chronic hypoxic respiratory failure, currently on 7 L of oxygen by nasal cannula, baseline 02 is 5 liters History of oxygen dependent chronic obstructive pulmonary disease History of chronic tobacco dependence of 47 years at 5 packs/day History of 1.6 cm right upper lobe pulmonary nodule with a max SUV of 0.9 suggesting granulomatous disease. Being followed in the outpatient setting. The patient also has bilateral mediastinal lymphadenopathy largest in the subcarinal area. Obviously, the possibility of malignancy cannot be completely ruled out. History of chronic back pain with poor mobility and previous surgery Diabetes mellitus, type II Hypertension Hyperlipidemia Plan: Provide the patient incentive spirometer Stable and on 7-8 L high flow nasal cannula, gradual wean down FiO2 to maintain saturation above 90% Titrate down the FiO2 as tolerated Continued [facility]-up on the case Workup of the pulmonary nodule on outpatient basis. May benefit from a biopsy and an EBUS Anticoagulation by Xarelto per vascular surgery recommendations We will continue to follow, the plan is to discharge patient to rehabilitation today to be followed up on outpatient basis regarding the above-mentioned pulmonary nodule and follow-up on his COPD.
[2024-05-05 19:58] LABS: Glucose,Whole Blood 149 mg/dL (70-110)
[2024-05-06 07:00] LABS: Glucose,Whole Blood 153 mg/dL (70-110)
[2024-05-06 08:41] VITALS: BMI 29.0
--- NOTE | 2024-05-06 10:20 | P.PN ---
Subjective Progress Note Date: 05/06/24 Hospital course 68 year old M with PMH COPD on 4-5L home O2, RUL pulmonary nodule, DM, HLD presents to [facility] for elective surgery. He has a history of LLE critical limb ischemia, underwent left femoral tibial bypass with insitu GSV graft, left femoral artery endarterectomy and patch angioplasty, angiogram of the LLE, balloon angioplasty of the GSV bypass with distal anastomosis with Dr. Archibald on 04/30. He was successfully extubated on 05/01. [facility] Physicians consulted for medical management of this patient. Subjective This morning patient was down to 5 L nasal cannula. This is his home O2. Patient states that he will go to care home facility for only a few days. Physical exam General: non toxic, no distress, appears at stated age Derm: warm, dry Head: atraumatic, normocephalic, symmetric Eyes: EOMI, no lid lag, anicteric sclera Mouth: no lip lesion, mucus membranes moist Cardiovascular: Normal S1 S2. NO murmurs, rubs or gallops Lungs: Decreased breath sounds bilaterally, no accessory muscle use Ext: LLE medial dressing c/d/i Neuro: no focal neuro deficits Psych: Alert, oriented, appropriate affect Assessment and plan Acute on chronic hypoxic respiratory failure with history of COPD: Post extubation. Patient is back to his home O2 of 3 to 5 L. Urinary retention: Flomax 0.4 mg PO QD. Leukocytosis: Likely reactive with no signs of active infection. Monitor fever profile. Thrombocytopenia: No signs of bleeding. Stable. Follow-up outpatient with PCP for CBC. Diabetes Mellitus: A1c 9.3 12/2023. ISS. Accuchecks ACHS. Hypoglycemic precautions. Resume home meds on discharge Pulmonary nodule: Followed by Dr. Carroll in the outpatient setting. LLE critical limb ischemia status post left femoral tibial bypass with insitu GSV graft, left femoral artery endarterectomy and patch angioplasty, angiogram of the LLE, balloon angioplasty of the GSV bypass with distal anastomosis with Dr. Archibald on 04/30 Physical therapy recommending care home facility. Patient stable for discharge from a medical standpoint. CODE STATUS: FULL CODE DVT Prophylaxis: Xarelto GI Prophylaxis: Protonix IV Objective - Vital Signs Vital signs: Vital Signs Temp 98.3 F 05/06/24 06:55 Pulse 82 05/06/24 09:05 Resp 16 05/06/24 08:00 BP 120/73 05/06/24 08:00 Pulse Ox 95 05/06/24 08:55 FiO2 60 05/01/24 08:00 Intake & Output 05/05/24 05/06/24 05/06/24 18:59 06:59 18:59 Intake Total 240 Output Total 200 Balance -200 240 Weight 94.3 kg Intake: Oral 240 Output: Urine 200 Other: Voiding Method Urinal # Voids 1 0 ABP, PAP, CO, CI - Last Documented Arterial Blood Pressure 123/53 - Labs CBC & Chem 7: 05/03/24 05:27 05/03/24 05:27 Labs: Abnormal Lab Results - Last 24 Hours (Table) 05/05/24 05/05/24 05/05/24 Range/Units 11:22 16:08 17:34 POC Glucose (mg/dL) 218 H 177 H 139 H (70-110) mg/dL 05/05/24 05/06/24 Range/Units 19:56 06:58 POC Glucose (mg/dL) 149 H 153 H (70-110) mg/dL
--- NOTE | 2024-05-06 11:03 | P.DS ---
Providers Date of admission: 04/30/24 10:04 Expected date of discharge: 05/06/24 Attending physician: Alexander Archibald DO Consults: 04/30/24 19:13 Consult Physician Routine Consulting Provider: Aramis Singh Consult Reason/Comments: ICU managmement Do you want consulting provider notified?: Already Contacted 04/30/24 19:34 Consult Physician Routine Consulting Provider: Nasim Bradshaw Consult Reason/Comments: medical management Do you want consulting provider notified?: Yes [facility] care physician: [facility] Course: 68-year-old male with history of left lower extremity critical limb ischemia and chronic wounds has been followed by vascular surgery and was scheduled for a left femoral tibial bypass with in situ GSV graft. He is postop day #6. He initially was admitted to the ICU intubated secondary to COPD and has significant history of smoking of 5 packs a day for multiple years and suspected lung cancer and later extubated. He does require oxygen 4 to 5 L nasal cannula at home. During his hospitalization he did require 12 L high flow nasal cannula however has been weaning down and currently on 5 L nasal cannula with oxygen goal of above 90% which he has been maintaining. Right lower extremity pain has improved. Incision to the left lower extremity medial side of calf well- approximated with corrine without any drainage. Medial aspect of left thigh incision with corrine and Prevena dressing intact. Patient has been afebrile. He was seen and evaluated by both occupational therapy and physical therapy who recommend residential facility/EC for rehab. Patient is somewhat reluctant however has agreed to go for a few days. Patient is requiring assistance with sitting up at bedside. He has been up ambulating with assistance and with walker. Plan is for discharge to [facility] or [facility], currently waiting for insurance authorization. Exam General appearance: The patient is alert, oriented, appears in no acute distress. HET: Head is normocephalic and atraumatic. Pupils are equal and reactive. Neck: Supple. Heart: Regular. Lungs: Equal expansion, normal respiratory effort. Abdomen: Soft, nontender, nondistended. Extremities: Normal skin color and turgor. Left PT signal present, left lower medial aspect of calf with incision well-approximated with corrine without any redness or drainage. Left medial aspect of thigh with incision with corrine well-approximated. Left groin with Ariane dressing in place with good suction. Neurological: No focal deficits. Strength and sensation are grossly intact. Assessment 1. Postop day #4 left [place] to below the knee in situ saphenous vein bypass with angioplasty 2. Left lower extremity critical limb ischemia 3. 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 Chronic left lower extremity ankle wounds 5. History of oxygen dependent chronic obstructive pulmonary disease 6. History of chronic tobacco dependence of 47 years at 5 packs/day 7. Diabetes melitis type II Plan Continue to wean down oxygen to maintain oxygen saturation 90% or greater. Continue with physical therapy. Patient to be discharged to residential facility/[facility] for rehabilitation today. Awaiting insurance authorization. Prevena wound VAC can be removed and discarded 05/07/2024. Continue Xarelto, keep corrine in place until follow-up with Dr. Archibald. Monitor for signs of infection. The impression and plan of care has been dictated as directed. I performed a history and examination of this patient, discussed the same with the dictator. I agree with the dictator's note ,documented as a scribe. Any additional findings or plans will be noted. Procedures: Procedure(s) Performed: Left femoral artery endarterectomy and patch angioplasty Left femoral-tibial bypass with greater saphenous vein in situ graft Selective angiogram left lower extremity second order Transluminal balloon angioplasty of the greater saphenous vein bypass and distal anastomosis Plan - Discharge Summary Discharge Rx Participant: No New Discharge Prescriptions: New HYDROcodone/APAP 5-325MG [[place] 5-325] 1 each PO Q4HR PRN 3 Days #18 tab PRN Reason: Pain Scale 8 To 10 Tamsulosin [Flomax] 0.4 mg PO PC-BRKFST #30 cap Rivaroxaban [Xarelto] 2.5 mg PO BID #60 tab Continue Lidocaine 5% Patch [Lidoderm 5% Patch] 1 patch TOPICAL DAILY PRN #30 patch PRN Reason: Pain Rosuvastatin Calcium 40 mg PO DAILY Budesonide-Formot 160-4.5 Mcg [Symbicort 160-4.5 Mcg Inhaler] 2 puff INHALATION RT-BID PRN PRN Reason: sob Glimepiride 2 mg PO BID Furosemide [Lasix] 40 mg PO DAILY #30 tablet Multivitamins, Thera [Multivitamin (formulary)] 1 tab PO DAILY Albuterol Inhaler [Ventolin Hfa Inhaler] 2 puff INHALATION RT-Q6H PRN PRN Reason: Shortness Of Breath Acetaminophen Tab [Tylenol] 650 mg PO Q6HR PRN tab PRN Reason: Mild Pain Or Fever > 100.5 Ipratropium-Albuterol Nebulize [Duoneb 0.5 mg-3 mg/3 ml Soln] 3 ml INHALATION BID Discontinued Ibuprofen [Motrin] 800 mg PO Q12H PRN PRN Reason: Pain Discharge Medication List Lidocaine 5% Patch [Lidoderm 5% Patch] 1 patch TOPICAL DAILY PRN #30 patch 12/08/23 [Rx] Glimepiride 2 mg PO BID 12/09/23 [History] Rosuvastatin Calcium 40 mg PO DAILY 12/09/23 [History] Furosemide [Lasix] 40 mg PO DAILY #30 tablet 12/17/23 [Rx] Albuterol Inhaler [Ventolin Hfa Inhaler] 2 puff INHALATION RT-Q6H PRN 01/16/24 [History] Budesonide-Formot 160-4.5 Mcg [Symbicort 160-4.5 Mcg Inhaler] 2 puff INHALATION RT-BID PRN 01/16/24 [History] Multivitamins, Thera [Multivitamin (formulary)] 1 tab PO DAILY 01/16/24 [History] Acetaminophen Tab [Tylenol] 650 mg PO Q6HR PRN tab 01/20/24 [Rx] Ipratropium-Albuterol Nebulize [Duoneb 0.5 mg-3 mg/3 ml Soln] 3 ml INHALATION BID 04/28/24 [History] HYDROcodone/APAP 5-325MG [[place] 5-325] 1 each PO Q4HR PRN 3 Days #18 tab 05/06/24 [Rx] Rivaroxaban [Xarelto] 2.5 mg PO BID #60 tab 05/06/24 [Rx] Tamsulosin [Flomax] 0.4 mg PO PC-BRKFST #30 cap 05/06/24 [Rx] Follow up Appointment(s)/Referral(s): Alexander Archibald DO [STAFF PHYSICIAN] - 2 Weeks Yuliet Richards MD [Primary Care Provider] - 3 Days Cesar Truong [NON-STAFF] - 1 Week Activity/Diet/Wound Care/Special Instructions: No driving cleared by surgeon Avoid heavy lifting greater than 10 lbs , pushing, pulling, straining, flights of stairs for 2 weeks ok to shower tomorrow but no baths, pools, soaking in tubs till cleared by surgeon to avoid risk of infection. signs of infection ie: fever, rash, drainage from puncture site, swelling contact doctor or return to ER immediately. Heavy bleeding from incision site apply firm direct pressure and return to ER. Do not attempt to drive self. low sodium/low fat diet Keep left groin Ariane dressing in place until 05/07/24 and may remove and throw away Discharge Disposition: TRANSFER TO SNF/ECF
[2024-05-06 12:09] LABS: Glucose,Whole Blood 186 mg/dL (70-110)
[2024-05-06 17:12] LABS: Glucose,Whole Blood 208 mg/dL (70-110)
--- NOTE | 2024-05-06 17:26 | P.PN ---
Subjective Progress Note Date: 05/06/24 This is a 68-year-old male patient with a known history of oxygen dependent chronic obstructive pulmonary disease, diabetes mellitus, hyperlipidemia, hypertension, right upper lobe 16 mm pulmonary nodule with a max SUV of 0.9 suggesting granulomatous disease. He was brought in to the hospital yesterday for an elective surgery regarding his left lower limb ischemia. He did undergo a left angioplasty, left femoral tibial bypass with greater saphenous vein [place] graft, selective angiogram of the left lower extremity and transluminal balloon angioplasty of the greater saphenous vein bypass and distal anastomosis. On today's evaluation of 05/04/2024, the patient being seen for a follow-up. The patient is postop day #4. The patient underwent an extensive vascular intervention which involved a left femoral angioplasty, left femoral-tibial bypass with greater saphenous vein graft and subsequent transluminal balloon angioplasty of the great saphenous vein bypass and distal anastomosis. The patient's extremities are rather cold yet there is capillary refill and the patient has Doppler pulses in the left lower extremity. He does have chronic vascular wounds in his lower extremities bilaterally. No signs of any active infection. His overall respiratory status is stable. The patient is not having any significant respiratory distress. No cough. No sputum production. No chest tightness. No wheezing.At 8 L with a pulse ox of 94%. He remains on oxygen and the patient is currently on oxygen the most recent chest x-ray from 05/02/2024 showed cardiomegaly and a right upper lobe pulmonary nodule which has been seen on previous CAT scan of the chest suspecting malignancy. Kvng luciano, the PET scan that was done at that time specifically on 02/08/2024 showed no significant metabolic activity in the right upper lobe pulmonary nodule. Noted the patient's CAT scan also revealed right hilar, paratracheal and subcarinal mediastinal lymphadenopathy. Obviously, there is concern for malignancy. He is known to have advanced COPD and the patient is on oxygen between 4 and 5 L on outpatient basis. On today's evaluation of 05/05/2024, the patient is being seen for a follow-up. The patient is doing well. The oxygenation is being monitored and the oxygen flow is being adjusted accordingly. The patient is currently 6 to 7 L of oxygen by nasal cannula. His baseline oxygen requirements is approximately 5 L. Doing well. No specific complaints. No significant pain in his lower extremities. The patient is status post left femoral tib bypass surgery and patient is postop day #5. Doing well. Adequate pulses lower extremities bilaterally. Vascular surgery is on the case. The wounds of the lower extremities remain unchanged. The patient has appropriate dressing covering the wounds. No new labs are available from today. Awake and alert and communicating. No chest pain. No shortness of breath. No other significant events overnight. 05/06/2024, no new complaints and overall respiratory status is stable and the patient is currently out of the intensive care unit. Remains upon Suboxone by nasal cannula with a pulse ox of 92%. Patient is postop day # 6. The patient underwent vascular bypass surgery for peripheral vascular disease and critical left lower extremity ischemia. He is diabetic. He is known to have COPD and is a chronic smoker. No new labs are available from today. Patient is likely getting discharged today. He is on Symbicort as maintenance, [facility], using incentive spirometer. He is requiring assistance with setting and moving up at the bedside. He also has a walker of the left side. He is going to be discharged to [facility] no significant pain in his lower extremities. Surgical wound sites are clean without any active drainage. He is afebrile. Objective - Vital Signs Vital signs: Vital Signs Temp 97.6 F 05/06/24 16:00 Pulse 76 05/06/24 16:00 Resp 15 05/06/24 16:00 BP 110/69 05/06/24 16:00 Pulse Ox 92 L 05/06/24 16:00 FiO2 60 05/01/24 08:00 Intake & Output 05/05/24 05/06/24 05/06/24 18:59 06:59 18:59 Intake Total 1560 Output Total 200 1200 Balance -200 360 Weight 94.3 kg Intake: Oral 1560 Output: Urine 200 1200 Other: Voiding Method Urinal # Voids 1 0 # Bowel Movements 1 ABP, PAP, CO, CI - Last Documented Arterial Blood Pressure 123/53 - Exam GENERAL EXAM:, Alert awake 68-year-old male patient, 8 liters high flow nasal cannula, in no apparent distress. HEAD: Normocephalic. EYES: Normal reaction of pupils, equal size. NOSE: Clear with pink turbinates. THROAT: Oral endotracheal and gastric tube secured in place. No erythema or exudates. NECK: No masses, no JVD. CHEST: No chest wall deformity. LUNGS: Equal air entry with no crackles, wheeze, rhonchi or dullness. CVS: S1 and S2 normal with no audible murmur, regular rhythm. ABDOMEN: No hepatosplenomegaly, normal bowel sounds, no guarding or rigidity. SPINE: No scoliosis or deformity SKIN: No rashes CENTRAL NERVOUS SYSTEM: No focal deficits, tone is normal in all 4 extremities. EXTREMITIES: Arterial line secured in place. Prevena wound VAC to the left groin. Dressing to the inner left lower extremity intact. Doppler pulses on the left posterior tibial. Peripheral pulses are intact. Noted the pulses are diminished and there is a Doppler signal. Wounds are unchanged. - Labs CBC & Chem 7: 05/03/24 05:27 05/03/24 05:27 Labs: Abnormal Lab Results - Last 24 Hours (Table) 05/05/24 05/05/24 05/06/24 Range/Units 17:34 19:56 06:58 POC Glucose (mg/dL) 139 H 149 H 153 H (70-110) mg/dL 05/06/24 05/06/24 Range/Units 12:08 17:10 POC Glucose (mg/dL) 186 H 208 H (70-110) mg/dL Assessment and Plan Plan: Critical left lower limb ischemia and chronic wounds. Status post left femoral artery endarterectomy and patch angioplasty, left femoral tibial bypass with greater saphenous vein graft, selective angiogram of the left lower extremity second-order, transluminal balloon angioplasty of the greater saphenous vein bypass and distal anastomosis. Post operative day # 6 Acute hypoxic respiratory failure on top of chronic hypoxic darius failure. The patient was placed on mechanical ventilator postop, extubated on 05/01/2024 and currently is on 5 L of O2 nasal cannula. Acute on chronic hypoxic respiratory failure, currently on 5 L of oxygen nasal cannula History of oxygen dependent chronic obstructive pulmonary disease History of chronic tobacco dependence of 47 years at 5 packs/day History of 1.6 cm right upper lobe pulmonary nodule with a max SUV of 0.9 suggesting granulomatous disease. Being followed in the outpatient setting. The patient also has bilateral mediastinal lymphadenopathy largest in the subcarinal area. Obviously, the possibility of malignancy cannot be completely ruled out. History of chronic back pain with poor mobility and previous surgery Diabetes mellitus, type II Hypertension Hyperlipidemia Plan: Provide the patient incentive spirometer Stable and on 5 L high flow nasal cannula, gradual wean down FiO2 to maintain saturation above 90% Titrate down the FiO2 as tolerated, baseline oxygen requirements are at 5 Continued DuoNeb inhalations, Symbicort Vascular surgery to follow-up on the case Workup of the pulmonary nodule on outpatient basis. May benefit from a biopsy and an EBUS Anticoagulation by Xarelto per vascular surgery recommendations We will continue to follow, the plan is to discharge patient to rehabilitation today to be followed up on outpatient basis regarding the above-mentioned pulmonary nodule and follow-up on his COPD.
[2024-05-06 20:01] LABS: Glucose,Whole Blood 142 mg/dL (70-110)
[2024-05-07 07:04] LABS: Glucose,Whole Blood 167 mg/dL (70-110)
[2024-05-07 11:59] LABS: Glucose,Whole Blood 163 mg/dL (70-110)
--- NOTE | 2024-05-07 14:43 | P.PN ---
Subjective Progress Note Date: 05/07/24 Patient is medically stable today for discharge, pending insurance authorization. Patient has no other complaints. Gen: In NAD, non-toxic HEENT: normocephalic, atraumatic, hearing acuity is intant, mucous membranes moist CVS: perfusing all extremities well, no pitting edema, Respiratory: symmetric chest expansion, no accessory muscle use, GI: soft, NTTP, ND, : no suprapubic tenderness, no CVA tenderness MSK/Derm: no rashes, cyanosis Neuro: CN II-XII intact, no motor weakness, Psych: cooperative, euthymic mood, judgment and insight is intact Hospital course 68 year old M with PMH COPD on 4-5L home O2, RUL pulmonary nodule, DM, HLD presents to [facility] for elective surgery. He has a history of LLE critical limb ischemia, underwent left femoral tibial bypass with insitu GSV graft, left femoral artery endarterectomy and patch angioplasty, angiogram of the LLE, balloon angioplasty of the GSV bypass with distal anastomosis with Dr. Archibald on 04/30. He was successfully extubated on 05/01. [facility] Physicians consulted for medical management of this patient. Assessment and plan Acute on chronic hypoxic respiratory failure with history of COPD: Post extubation. Patient is back to his home O2 of 3 to 5 L. Urinary retention: Flomax 0.4 mg PO QD. Leukocytosis: Likely reactive with no signs of active infection. Monitor fever profile. Thrombocytopenia: No signs of bleeding. Stable. Follow-up outpatient with PCP for CBC. Diabetes Mellitus: A1c 9.3 12/2023. ISS. Accuchecks ACHS. Hypoglycemic precautions. Resume home meds on discharge Pulmonary nodule: Followed by Dr. Carroll in the outpatient setting. LLE critical limb ischemia status post left femoral tibial bypass with insitu GSV graft, left femoral artery endarterectomy and patch angioplasty, angiogram of the LLE, balloon angioplasty of the GSV bypass with distal anastomosis with Dr. Archibald on 04/30 Physical therapy recommending detention facility. Patient stable for discharge from a medical standpoint. CODE STATUS: FULL CODE DVT Prophylaxis: Xarelto GI Prophylaxis: Protonix IV Objective - Vital Signs Vital signs: Vital Signs Temp 98.4 F 05/07/24 13:24 Pulse 77 05/07/24 13:24 Resp 20 05/07/24 13:24 BP 100/60 05/07/24 13:24 Pulse Ox 93 L 05/07/24 13:24 FiO2 60 05/01/24 08:00 Intake & Output 05/06/24 05/07/24 05/07/24 18:59 06:59 18:59 Intake Total 1800 590 Output Total 1200 1550 Balance 600 -960 Weight 94.3 kg Intake: Oral 1800 590 Output: Urine 1200 1550 Other: # Bowel Movements 1 ABP, PAP, CO, CI - Last Documented Arterial Blood Pressure 123/53 - Labs CBC & Chem 7: 05/03/24 05:27 05/03/24 05:27 Labs: Abnormal Lab Results - Last 24 Hours (Table) 05/06/24 05/06/24 05/07/24 Range/Units 17:10 20:00 07:03 POC Glucose (mg/dL) 208 H 142 H 167 H (70-110) mg/dL 05/07/24 Range/Units 11:58 POC Glucose (mg/dL) 163 H (70-110) mg/dL
--- NOTE | 2024-05-07 15:06 | P.PN ---
Subjective Progress Note Date: 05/07/24 This is a 68-year-old male patient with a known history of oxygen dependent chronic obstructive pulmonary disease, diabetes mellitus, hyperlipidemia, hypertension, right upper lobe 16 mm pulmonary nodule with a max SUV of 0.9 suggesting granulomatous disease. He was brought in to the hospital yesterday for an elective surgery regarding his left lower limb ischemia. He did undergo a left angioplasty, left femoral tibial bypass with greater saphenous vein [place] graft, selective angiogram of the left lower extremity and transluminal balloon angioplasty of the greater saphenous vein bypass and distal anastomosis. On today's evaluation of 05/04/2024, the patient being seen for a follow-up. The patient is postop day #4. The patient underwent an extensive vascular intervention which involved a left femoral angioplasty, left femoral-tibial bypass with greater saphenous vein graft and subsequent transluminal balloon angioplasty of the great saphenous vein bypass and distal anastomosis. The patient's extremities are rather cold yet there is capillary refill and the patient has Doppler pulses in the left lower extremity. He does have chronic vascular wounds in his lower extremities bilaterally. No signs of any active infection. His overall respiratory status is stable. The patient is not having any significant respiratory distress. No cough. No sputum production. No chest tightness. No wheezing.At 8 L with a pulse ox of 94%. He remains on oxygen and the patient is currently on oxygen the most recent chest x-ray from 05/02/2024 showed cardiomegaly and a right upper lobe pulmonary nodule which has been seen on previous CAT scan of the chest suspecting malignancy. Kvng luciano, the PET scan that was done at that time specifically on 02/08/2024 showed no significant metabolic activity in the right upper lobe pulmonary nodule. Noted the patient's CAT scan also revealed right hilar, paratracheal and subcarinal mediastinal lymphadenopathy. Obviously, there is concern for malignancy. He is known to have advanced COPD and the patient is on oxygen between 4 and 5 L on outpatient basis. On today's evaluation of 05/05/2024, the patient is being seen for a follow-up. The patient is doing well. The oxygenation is being monitored and the oxygen flow is being adjusted accordingly. The patient is currently 6 to 7 L of oxygen by nasal cannula. His baseline oxygen requirements is approximately 5 L. Doing well. No specific complaints. No significant pain in his lower extremities. The patient is status post left femoral tib bypass surgery and patient is postop day #5. Doing well. Adequate pulses lower extremities bilaterally. Vascular surgery is on the case. The wounds of the lower extremities remain unchanged. The patient has appropriate dressing covering the wounds. No new labs are available from today. Awake and alert and communicating. No chest pain. No shortness of breath. No other significant events overnight. 05/06/2024, no new complaints and overall respiratory status is stable and the patient is currently out of the intensive care unit. Remains upon Suboxone by nasal cannula with a pulse ox of 92%. Patient is postop day # 6. The patient underwent vascular bypass surgery for peripheral vascular disease and critical left lower extremity ischemia. He is diabetic. He is known to have COPD and is a chronic smoker. No new labs are available from today. Patient is likely getting discharged today. He is on Symbicort as maintenance, DuoNeb updrafts, using incentive spirometer. He is requiring assistance with setting and moving up at the bedside. He also has a walker of the left side. He is going to be discharged to [facility] no significant pain in his lower extremities. Surgical wound sites are clean without any active drainage. He is afebrile. On today's evaluation of 05/07/2024, no new complaints. Oxygenation is unchanged and the patient remains on 5 L of oxygen by nasal cannula with a pulse ox of 92%. The patient is awaiting insurance authorization to be transferred to [facility]. Remains anticoagulation with Xarelto. Overall respiratory status is stable and the patient is stable from the pulmonary standpoint for discharge. He did have a critical limb ischemia post left femoral endarterectomy and femoral tibial bypass surgery and the surgery was done on 04/30/2024. No new labs are available from today. Medication remains unchanged the patient remains on anticoagulation with Xarelto for vascular surgery. Remains on oral Lasix 40 mg p.o. daily. Remains on Symbicort and DuoNeb treatments [id number]. Objective - Vital Signs Vital signs: Vital Signs Temp 98.4 F 05/07/24 13:24 Pulse 72 05/07/24 14:54 Resp 20 05/07/24 13:24 BP 100/60 05/07/24 13:24 Pulse Ox 92 L 05/07/24 14:46 FiO2 60 05/01/24 08:00 Intake & Output 05/06/24 05/07/24 05/07/24 18:59 06:59 18:59 Intake Total 1800 590 Output Total 1200 1550 Balance 600 -960 Weight 94.3 kg Intake: Oral 1800 590 Output: Urine 1200 1550 Other: # Bowel Movements 1 ABP, PAP, CO, CI - Last Documented Arterial Blood Pressure 123/53 - Exam GENERAL EXAM:, Alert awake 68-year-old male patient, 8 liters high flow nasal cannula, in no apparent distress. HEAD: Normocephalic. EYES: Normal reaction of pupils, equal size. NOSE: Clear with pink turbinates. THROAT: Oral endotracheal and gastric tube secured in place. No erythema or exudates. NECK: No masses, no JVD. CHEST: No chest wall deformity. LUNGS: Equal air entry with no crackles, wheeze, rhonchi or dullness. CVS: S1 and S2 normal with no audible murmur, regular rhythm. ABDOMEN: No hepatosplenomegaly, normal bowel sounds, no guarding or rigidity. SPINE: No scoliosis or deformity SKIN: No rashes CENTRAL NERVOUS SYSTEM: No focal deficits, tone is normal in all 4 extremities. EXTREMITIES: Arterial line secured in place. Prevena wound VAC to the left groin. Dressing to the inner left lower extremity intact. Doppler pulses on the left posterior tibial. Peripheral pulses are intact. Noted the pulses are diminished and there is a Doppler signal. Wounds are unchanged. - Labs CBC & Chem 7: 05/03/24 05:27 05/03/24 05:27 Labs: Abnormal Lab Results - Last 24 Hours (Table) 05/06/24 05/06/24 05/07/24 Range/Units 17:10 20:00 07:03 POC Glucose (mg/dL) 208 H 142 H 167 H (70-110) mg/dL 05/07/24 Range/Units 11:58 POC Glucose (mg/dL) 163 H (70-110) mg/dL Assessment and Plan Plan: Critical left lower limb ischemia and chronic wounds. Status post left femoral artery endarterectomy and patch angioplasty, left femoral tibial bypass with greater saphenous vein graft, selective angiogram of the left lower extremity second-order, transluminal balloon angioplasty of the greater saphenous vein bypass and distal anastomosis. Post operative day # 6 Acute hypoxic respiratory failure on top of chronic hypoxic darius failure. The patient was placed on mechanical ventilator postop, extubated on 05/01/2024 and currently is on 5 L of O2 nasal cannula. Acute on chronic hypoxic respiratory failure, currently on 5 L of oxygen nasal cannula History of oxygen dependent chronic obstructive pulmonary disease History of chronic tobacco dependence of 47 years at 5 packs/day History of 1.6 cm right upper lobe pulmonary nodule with a max SUV of 0.9 suggesting granulomatous disease. Being followed in the outpatient setting. The patient also has bilateral mediastinal lymphadenopathy largest in the subcarinal area. Obviously, the possibility of malignancy cannot be completely ruled out. History of chronic back pain with poor mobility and previous surgery Diabetes mellitus, type II Hypertension Hyperlipidemia Plan: Provide the patient incentive spirometer Stable and on 5 L high flow nasal cannula, gradual wean down FiO2 to maintain saturation above 90% Titrate down the FiO2 as tolerated, baseline oxygen requirements are at 5 Continued DuoNeb inhalations, Symbicort Vascular surgery to follow-up on the case Workup of the pulmonary nodule on outpatient basis. May benefit from a biopsy and an EBUS Anticoagulation by [facility] per vascular surgery recommendations We will continue to follow, the plan is to discharge patient to rehabilitation today to be followed up on outpatient basis regarding the above-mentioned pulmonary nodule and follow-up on his COPD. Pending insurance authorization.
[2024-05-07 17:04] LABS: Glucose,Whole Blood 248 mg/dL (70-110)
[2024-05-07 20:49] LABS: Glucose,Whole Blood 274 mg/dL (70-110)
[2024-05-08 07:07] LABS: Glucose,Whole Blood 183 mg/dL (70-110)
[2024-05-08 07:35] VITALS: BP 101/45; RESP 22; TEMP 97.8
[2024-05-08] MEDS: INSULIN DETEMIR (LEVEMIR) 100 UNIT/ML SYR SQ SCH (08:24)
--- NOTE | 2024-05-08 10:10 | P.PN ---
Subjective Progress Note Date: 05/08/24 Patient is medically stable today for discharge, pending insurance authorization. Patient has no other complaints. Gen: In NAD, non-toxic HEENT: normocephalic, atraumatic, hearing acuity is intant, mucous membranes moist CVS: perfusing all extremities well, no pitting edema, Respiratory: symmetric chest expansion, no accessory muscle use, GI: soft, NTTP, ND, : no suprapubic tenderness, no CVA tenderness MSK/Derm: no rashes, cyanosis Neuro: CN II-XII intact, no motor weakness, Psych: cooperative, euthymic mood, judgment and insight is intact Hospital course 68 year old M with PMH COPD on 4-5L home O2, RUL pulmonary nodule, DM, HLD presents to [facility] for elective surgery. He has a history of LLE critical limb ischemia, underwent left femoral tibial bypass with insitu GSV graft, left femoral artery endarterectomy and patch angioplasty, angiogram of the LLE, balloon angioplasty of the GSV bypass with distal anastomosis with Dr. Archibald on 04/30. He was successfully extubated on 05/01. [facility] Physicians consulted for medical management of this patient. Assessment and plan Acute on chronic hypoxic respiratory failure with history of COPD: Post extubation. Patient is back to his home O2 of 3 to 5 L. Urinary retention: Flomax 0.4 mg PO QD. Leukocytosis: Likely reactive with no signs of active infection. Monitor fever profile. Thrombocytopenia: No signs of bleeding. Stable. Follow-up outpatient with PCP for CBC. Diabetes Mellitus: A1c 9.3 12/2023. ISS. Accuchecks ACHS. Hypoglycemic precautions. Resume home meds on discharge Pulmonary nodule: Followed by Dr. Carroll in the outpatient setting. LLE critical limb ischemia status post left femoral tibial bypass with insitu GSV graft, left femoral artery endarterectomy and patch angioplasty, angiogram of the LLE, balloon angioplasty of the GSV bypass with distal anastomosis with Dr. Archibald on 04/30 Physical therapy recommending [facility] facility. Patient stable for discharge from a medical standpoint. CODE STATUS: FULL CODE DVT Prophylaxis: Xarelto GI Prophylaxis: Protonix IV Objective - Vital Signs Vital signs: Vital Signs Temp 97.8 F 05/08/24 07:09 Pulse 80 05/08/24 08:01 Resp 22 05/08/24 07:09 BP 101/45 05/08/24 07:09 Pulse Ox 91 L 05/08/24 07:09 FiO2 60 05/01/24 08:00 Intake & Output 05/07/24 05/08/24 05/08/24 18:59 06:59 18:59 Intake Total 2100 360 Output Total 1500 Balance 600 360 Intake: Oral 2100 360 Output: Urine 1500 Other: Voiding Method Urinal # Voids 2 ABP, PAP, CO, CI - Last Documented Arterial Blood Pressure 123/53 - Labs CBC & Chem 7: 05/03/24 05:27 05/03/24 05:27 Labs: Abnormal Lab Results - Last 24 Hours (Table) 05/07/24 05/07/24 05/07/24 Range/Units 11:58 17:02 20:47 POC Glucose (mg/dL) 163 H 248 H 274 H (70-110) mg/dL 05/08/24 Range/Units 07:05 POC Glucose (mg/dL) 183 H (70-110) mg/dL
[2024-05-08 11:16] VITALS: PULSE 76
[2024-05-08 11:59] LABS: Glucose,Whole Blood 194 mg/dL (70-110)
== END 2024-05-08 13:50 | DRG 252 ==
LOC: 2ORMAIN 10:04 → 2SICU 20:43 → 5NMEDONC 05-05 16:48
PROVIDERS: ADMIT Surgery; ATTEND Surgery
PROC: 06BQ0ZZ Excision of Left Saphenous Vein, Open Approach (ICD-10-PCS; 2024-04-30)
PROC: 041L09N Bypass Left Femoral Artery to Posterior Tibial Artery with Autologous Venous Tissue, Open Approach (ICD-10-PCS; principal; 2024-04-30 11:30)
DX: E11.51 Type 2 diabetes mellitus with diabetic peripheral angiopathy without gangrene (principal); J96.21 Acute and chronic respiratory failure with hypoxia; D69.6 Thrombocytopenia, unspecified; I11.9 Hypertensive heart disease without heart failure; Z99.81 Dependence on supplemental oxygen; I70.222 Atherosclerosis of native arteries of extremities with rest pain, left leg; E78.5 Hyperlipidemia, unspecified; Z87.891 Personal history of nicotine dependence; J44.9 Chronic obstructive pulmonary disease, unspecified; Z79.01 Long term (current) use of anticoagulants; Z79.84 Long term (current) use of oral hypoglycemic drugs; Z79.899 Other long term (current) drug therapy

== ENCOUNTER → 2024-06-14 | Outpatient (CLI) | payer MEDICARE, OTHER ==
[2024-06-14 12:45] LABS: African American GFR (CKD) 66 (>60 ml/min/1.73 sqM); Blood Urea Nitrogen 18 mg/dL (9-20); Non-African American GFR(CKD) 57 (>60 ml/min/1.73 sqM)
--- NOTE | 2024-06-14 15:39 | CT ---
EXAMINATION TYPE: CT chest w con CT DLP: 558.8 mGycm, Automated exposure control for dose reduction was used. DATE OF EXAM: 06/14/2024 1:22 PM COMPARISON: Head CT 02/08/2024 CT chest 12/11/2023 CLINICAL INDICATION:Male, 68 years old with history of R91.1 SOLITARY PULMONARY NODULE; PHH, lung nod ule TECHNIQUE: Multiple axial images were obtained through the chest following the administration of 100 cc of Isovue 300. . Coronal and sagittal reformats reviewed. FINDINGS: LUNGS/ PLEURA: No pleural effusion or pneumothorax. Advanced centrilobular emphysematous changes. Valdo ateral lower lobe dependent subsegmental atelectasis. Stable right upper lobe 1.6 cm nodule with lena pheral calcification. AIRWAY: Patent and unremarkable.. HEART: Size within normal limits. No pericardial effusion. Moderate coronary tail calcifications. MEDIASTINUM: Stable mediastinal adenopathy including a subcarinal lymph node measuring 1.9 cm short a xis. VASCULATURE: No aortic aneurysm. Moderate atherosclerotic calcification of the aorta and its branche s. MUSCULOSKELETAL: No acute osseous abnormalities SOFT TISSUES/LYMPH NODES: Unremarkable. LOWER NECK: No significant findings. UPPER ABDOMEN: Small perihepatic ascites. IMPRESSION: 1. Stable right upper lobe peripherally calcified nodule. No new or enlarging pulmonary nodules. Foll ow-up CT chest in one year is recommended. 2. Stable nonspecific mediastinal adenopathy. 3. Advanced COPD changes. 4. Small perihepatic ascites. [facility] Akhil Leiva, , 06/14/2024 3:37 PM
== END ==
LOC: RADCTMAIN 12:02
PROVIDERS: ATTEND Internal Medicine Critical Care Medicine
DX: R91.1 Solitary pulmonary nodule
CPT/HCPCS: 36415; 71260; 82565; 84520

== ENCOUNTER 2024-06-18 07:52 | Day surgery (SDC) | payer MEDICARE, OTHER ==
[2024-06-15 09:05] VITALS: BMI 29.2
[~2024-06-18 07:52] MED LIST: ALPRAZolam 0.25 MG TAB PO PRN; ALPRAZolam 0.5 MG TAB PO PRN; ZOLPIDEM 5 MG TAB PO PRN
[2024-06-18] MEDS: EMPTY BAG 1 BAG with SODIUM CHLORIDE 0.9% 1,000 ML IV SCH (08:10)
[2024-06-18 08:14] VITALS: RESP 18; TEMP 98.1
[2024-06-18] MEDS: IV FLUID CONTINUATION 1,000 ML IV ONE (08:14)
[2024-06-18 08:26] LABS: Anisocytosis Slight; Basophils % (A) 0 %; Eosinophils # (A) 0.1 k/uL (0-0.7); Eosinophils % (A) 1 %; HCT 51.7 % (39.0-53.0); HGB 15.3 gm/dL (13.0-17.5); Hypochromasia Marked; Lymphocytes # (A) 1.8 k/uL (1.0-4.8); Lymphocytes % (A) 25 %; MCH 27.3 pg (25.0-35.0); MCHC 29.6 g/dL (31.0-37.0); MCV 92.3 fL (80.0-100.0); Mean Platelet Volume 10.1; Monocytes # (A) 0.6 k/uL (0-1.0); Monocytes % (A) 8 %; Neutrophils # (A) 4.7 k/uL (1.3-7.7); Neutrophils % (A) 64 %; RDW 17.1 % (11.5-15.5); WBC 7.4 k/uL (3.8-10.6)
[2024-06-18 08:30] LABS: Platelet Count 137 k/uL (150-450)
[2024-06-18] MEDS: fentaNYL (PF) 50 MCG/ML 2 ML AMP IVP ONE (08:44)
[2024-06-18] MEDS: MIDAZOLAM 2 MG/2 ML VIAL IVP ONE (08:44)
[2024-06-18] MEDS: LIDOCAINE 1% INJ 10MG/ML (20 ML MDV) SQ ONE (08:46)
[2024-06-18] MEDS: HEPARIN SODIUM 1,000 UN/ML (10ML VL) MISCELLANE ONE (08:48)
[2024-06-18] MEDS: VERAPAMIL SYRINGE (5 MG/10 ML) INTRAARTER ONE (08:48)
[2024-06-18] MEDS: NITROGLYCERIN 1000MCG/10ML SYRINGE INTRAARTER ONE (08:48)
[2024-06-18 08:52] LABS: African American GFR (CKD) 68 (>60 ml/min/1.73 sqM); Anion Gap 11 mmol/L; Blood Urea Nitrogen 24 mg/dL (9-20); Calcium 9.1 mg/dL (8.4-10.2); Carbon Dioxide 26 mmol/L (22-30); Chloride 103 mmol/L (98-107); Glucose 143 mg/dL (74-99); Non-African American GFR(CKD) 59 (>60 ml/min/1.73 sqM); Potassium 3.5 mmol/L (3.5-5.1); Sodium 140 mmol/L (137-145)
[2024-06-18] MEDS: IOPAMIDOL-370 200ML BTL INJ ONE ×2 (08:55→09:05)
[2024-06-18] MEDS: HEPARIN SODIUM,PORCINE 10,000 UNIT in SODIUM CHLORIDE 0.9% 1,000 ML IRRIGATION PRN (09:04)
[2024-06-18] MEDS: HEPARIN SODIUM,PORCINE (1 ML) 2,500 UNIT in SODIUM CHLORIDE 0.9% 250 ML IRRIGATION PRN (09:04)
--- NOTE | 2024-06-18 09:16 | P.OP ---
Date of Procedure: 06/18/24 Description of Procedure: Preoperative diagnosis: Critical limb ischemia left lower extremity chronic wound, previous left femoral tibial bypass Postop diagnosis: Critical limb ischemia left lower extremity chronic wound, distal occlusion of the bypass with severe atherosclerotic disease and poor runoff to the foot. Right SFA occlusion Procedure: Aortogram with bilateral lower extremity runoffs via left radial artery access under ultrasound guidance Surgeon: Cristela Anesthesia: Moderate sedation times 17 minutes Estimated blood loss: 2 cc Complications: None Condition: Stable Findings: Aorta: Patent with calcific disease throughout and no evidence of significant stenosis Iliacs: Bilateral common iliac and internal iliac arteries are patent without any significant stenosis. There is calcific disease throughout. Right external iliac artery with >80% stenosis. Left external iliac artery is patent without any significant stenosis Femorals: Bilateral common femoral and profundus femoris arteries are patent with calcific disease throughout but no significant stenosis. Right superficial femoral artery with flush occlusion. Flush occlusion noted on the left superficial femoral artery with patent proximal aspect of the femoral-tibial bypass. Filling of a branch to the common femoral vein noted. Reconstitution of distal popliteal noted on the right and left tibioperoneal trunk recon Popliteal: Left popliteal artery is occluded. Right popliteal artery reconstitution noted with calcific disease throughout without any significant stenosis Tibials: Tibioperoneal trunk on the right is diminutive with poor flow noted to the foot likely due to timing of the contrast. Left tibial peroneal trunk is patent with recon, multiple branches filling. There is two-vessel runoff towards the ankle with PT noted at the left. Operative narrative: After written informed consent was obtained the patient all risks benefits competitions were described the patient is brought to the [facility] and laid in a supine position. The area of the left wrist was prepped and draped in the usual sterile fashion. Local anesthesia with moderate sedation was performed with continuous pulse ox monitoring and EKG monitoring. Utilizing ultrasound the left radial artery was visualized and shown to be patent without any significant plaque. Utilizing a multipurpose needle under ultrasound guidance the artery was accessed. Guidewire was placed followed by 5 [place] sheath. 035 Glidewire was then placed into the aorta followed by pigtail catheter. Angiogram was then obtained of the aorta. Catheter was then placed at the bifurcation and lower extremity runoffs were obtained. Once completed all guidewires, catheters and sheaths were removed and pressure was placed for hemostasis. Patient tolerated procedure well was sent to PACU for recovery. Due to the severity of his disease he will likely need a revision of his bypass on the left. The midportion of the bypass is occluded and fills a branch to the deep system and therefore interposition bypass to the PT on the left may be beneficial with CryoVein. He will also need ligation of that branch extending into the deep system. Right lower extremity will require balloon angioplasty and stenting of the external iliac artery and bypass below the knee if his right lower extremity continues to have significant pain.
--- NOTE | 2024-06-18 09:54 | IR ---
EXAMINATION TYPE: IR angio abdominal w runoff DATE OF EXAM: 06/18/2024 COMPARISON: NONE HISTORY: Fluoroscopy time. Fluoroscopy was provided to the referring clinician. [facility], , 06/18/2024 9:52 AM
[2024-06-18 13:18] VITALS: BP 134/72; PULSE 64
== END 2024-06-18 13:20 | disposition home or self-care (01) ==
LOC: CATHCVL 07:52
PROVIDERS: ATTEND Surgery
CPT/HCPCS: 36200; 75625; 75716; 76937; 80048; 85025